=== PATIENT | female | born 1960 | race Caucasian/White ===

== ENCOUNTER → 2018-05-02 07:32 | Outpatient (CLI) | payer OTHER, SELFPAY ==
--- NOTE | 2018-05-02 07:47 | RAD_ITS ---
STUDY: AIR-CONTRAST UPPER GI SERIES. REASON FOR EXAM: Female, 57 years old. History of gastroesophageal reflux disease. FLUOROSCOPY TIME (if supplied): (0:51) minutes/seconds TECHNIQUE: The patient ingested barium. Multiple images of the esophagus, stomach and duodenum were obtained. COMPARISON: None. FINDINGS: There is evidence of a small sliding hiatal hernia with gastroesophageal reflux. The remainder of the stomach and duodenum is unremarkable. There is no evidence of ulceration or mass lesion. RAD/Upper GI Series Only IMPRESSION: Small sliding hiatal hernia with gastroesophageal reflux. Electronically Signed: Jad Peñaloza MD at 8:25 EDT Tel [phone], Service support ,
[2018-05-02 08:35] LABS: Cholesterol 154 mg/dL (200); Glucose 88 mg/dL (74-106); High Density Lipoprotein 53 mg/dL; Triglycerides 131 mg/dL; Very Low Density Lipoprotein 26 mg/dL (5-40)
== END ==
PROVIDERS: Family Provider Family Medicine; PCP Family Medicine; Visit Provider Family Medicine
DX: Z01.89 Encounter for other specified special examinations (principal); K21.9 Gastro-esophageal reflux disease without esophagitis
CPT/HCPCS: 36415; 74246; 80061; 82947

== ENCOUNTER → 2019-01-18 07:48 | Outpatient (CLI) | payer OTHER, SELFPAY ==
--- NOTE | 2019-01-18 07:52 | BI_ITS ---
MAMMOGRAPHY - BILATERAL SCREENING REASON FOR EXAM: Female, 58 years old. Routine annual screening examination. PERTINENT HISTORY: Non-contributory. Remote right stereotactic breast biopsy. TECHNIQUE: Digital bilateral breast lb (3D mammographic acquisition) in the CC and MLO projections. 2-D mediolateral oblique (MLO) and craniocaudad (CC) views of both breasts were obtained. CAD: Full Field Digital Mammography with Computer Added Detection was performed. COMPARISON: Comparison is made with prior study dated November 08, 2016 and January 27, 2009. FINDINGS: Breast Composition: The breasts are extremely dense, which lowers the sensitivity of mammography. There are no dominant masses or suspicious calcifications. A tissue clip marker is once again seen in the upper medial aspect of the right breast. No other significant abnormalities are identified. There has been no significant change since the prior study. BI/SCREENING MAMM (CAD), BILAT IMPRESSION: Stable bilateral screening mammogram. Yearly follow-up mammogram recommended. (A) ASSESSMENT CATEGORY: BIRADS Category 2: Benign. A letter regarding these results will be sent to the patient by the facility within 30 days. Approximately 10% of breast cancers are not detected by mammography. A normal mammogram should not delay biopsy of a clinically suspicious abnormality. [id number] Electronically Signed: Jad Peñaloza, at 9:05 EST , Service support ,
== END ==
PROVIDERS: Family Provider Family Medicine; PCP Family Medicine; Referring Provider Obstetrics & Gynecology; Visit Provider Obstetrics & Gynecology
DX: Z12.31 Encounter for screening mammogram for malignant neoplasm of breast (principal)
CPT/HCPCS: 77063; 77067

== ENCOUNTER → 2019-05-20 | Outpatient (CLI) | payer OTHER, SELFPAY ==
[2019-05-20 15:37] LABS: Absolute Lymphocyte Count 2.04 X10^3/ul (0.83-4.51); Absolute Neutrophil Count 2.2 X10^3/uL (2.0-7.7); Basophil# 0.02 X10^3/uL; Basophil% 0.4 % (0-1); Eosinophil# 0.07 X10^3/uL; Eosinophils% 1.5 % (0-5); Hematocrit 38.6 % (37-47); Hemoglobin 12.9 g/dl (12.0-15.0); Lymphocyte # 2.04 X10^3/ul (4.0); Lymphocyte % 43.1 % (19-41); Mean Corp Hgb Conc 33.4 g/gl (32-36); Mean Corpuscular Hgb 28.9 pg (27.0-32.0); Mean Corpuscular Volume 86.5 fL (81-99); Mean Platelet Vol. 12.2 fl (6.2-12.0); Monocyte# 0.38 X10^3/uL; Neutrophil # 2.21 X10^3/uL (2.7-7.7); Neutrophil % 46.8 % (47-70); Platelet Count 148 K/mm3 (150-450); RBC Distribution Width CV 12.7 % (11.6-14.6); RBC Distribution Width SD 39.5 fl (35.1-43.9); Red Blood Count 4.46 M/mm3 (4.2-5.4); White Blood Count 4.7 K/mm3 (4.4-11.0)
[2019-05-20 15:43] LABS: POSITIVE COUNT NO; POSITIVE DIFFERENTIAL NO; POSITIVE MORPHOLOGY NO
[2019-05-20 16:05] LABS: Vitamin B12 1198 pg/mL (211-911)
[2019-05-20 16:55] LABS: ALB/GLOB Ratio 1.2 RATIO (0.9-2.4); AST(SGOT) 20 U/L (15-37); Alanine Aminotransfer ALT/SGPT 24 U/L (13-56); Albumin, Serum 3.9 g/dL (3.2-5.0); Alkaline Phosphatase 50 U/L (45-117); Anion Gap 3 (5-15); BUN 17 mg/dL (7-18); BUN/Creat Ratio 23.7 RATIO (10-20); Calcium,Total 9.2 mg/dL (8.5-10.1); Chloride 105 mmol/L (98-107); Creatinine, Serum 0.72 mg/dL (0.55-1.02); EST Glomerular Filtration Rate 88 mL/min (>60); Est Glom Filt Rate - Afr Amer 106 mL/min (>60); Globulin 3.3 g/dL (2.2-4.2); Glucose 88 mg/dL (74-106); Potassium 3.9 mmol/L (3.5-5.1); Protein, Total 7.2 g/dL (6.4-8.2); Sodium Level 139 mmol/L (136-145)
== END | disposition home or self-care (01) ==
LOC: MFPLAB 14:23
PROVIDERS: Family Provider Family Medicine; PCP Family Medicine; Visit Provider Family Medicine
DX: L65.9 Nonscarring hair loss, unspecified (principal); R53.83 Other fatigue
CPT/HCPCS: 36415; 80053; 82607; 82746; 84443; 85025

== ENCOUNTER → 2019-07-13 | Outpatient (CLI) | payer OTHER, SELFPAY ==
[2019-07-13 10:07] LABS: Absolute Lymphocyte Count 1.72 X10^3/uL (0.83-4.51); Absolute Neutrophil Count 2.1 X10^3/uL (2.0-7.7); Basophil# 0.02 X10^3/uL; Basophil% 0.5 % (0-1); Eosinophil# 0.08 X10^3/uL; Eosinophils% 1.9 % (0-5); Hemoglobin 13.6 g/dL (12.0-15.0); Lymphocyte # 1.72 X10^3/ul (4.0); Lymphocyte % 40.8 % (19-41); Mean Corp Hgb Conc 33.2 g/dL (32-36); Mean Corpuscular Hgb 29.8 pg (27.0-32.0); Mean Corpuscular Volume 89.9 fL (81-99); Mean Platelet Vol. 11.9 fl (6.2-12.0); Monocyte# 0.35 X10^3/uL; Monocyte% 8.3 % (0-10); NRBC Flagged by Analyzer 0 % (0-5); Neutrophil # 2.05 X10^3/uL (2.7-7.7); Neutrophil % 48.5 % (47-70); Platelet Count 157 K/mm3 (150-450); RBC Distribution Width SD 39.6 fl (35.1-43.9); Red Blood Count 4.56 M/mm3 (4.2-5.4); White Blood Count 4.2 K/mm3 (4.4-11.0)
[2019-07-13 10:38] LABS: Cholesterol 174 mg/dL (200); High Density Lipoprotein 69 mg/dL; Triglycerides 111 mg/dL; Very Low Density Lipoprotein 22 mg/dL (5-40)
== END | disposition home or self-care (01) ==
LOC: LAB 09:21
PROVIDERS: Family Provider Family Medicine; PCP Family Medicine; Referring Provider Family Medicine; Visit Provider Family Medicine
DX: I10 Essential (primary) hypertension (principal)
CPT/HCPCS: 36415; 80061; 85025

== ENCOUNTER → 2020-06-10 15:38 | Outpatient (CLI) | payer OTHER, SELFPAY ==
[2020-06-10 17:53] LABS: Absolute Lymphocyte Count 1.65 X10^3/uL (0.83-4.51); Absolute Neutrophil Count 3.2 X10^3/uL (2.0-7.7); Basophil# 0.02 X10^3/uL; Basophil% 0.4 % (0-1); Eosinophil# 0.07 X10^3/uL; Eosinophils% 1.3 % (0-5); Hematocrit 37.8 % (37-47); Hemoglobin 12.2 g/dL (12.0-15.0); Lymphocyte # 1.65 X10^3/ul (4.0); Lymphocyte % 30.3 % (19-41); Mean Corp Hgb Conc 32.3 g/dL (32-36); Mean Corpuscular Hgb 29.5 pg (27.0-32.0); Mean Corpuscular Volume 91.3 fL (81-99); Mean Platelet Vol. 12.3 fl (6.2-12.0); Monocyte# 0.53 X10^3/uL; Monocyte% 9.7 % (0-10); NRBC Flagged by Analyzer 0 % (0-5); Neutrophil # 3.16 X10^3/uL (2.7-7.7); Neutrophil % 58.1 % (47-70); Platelet Count 163 K/mm3 (150-450); RBC Distribution Width CV 12.7 % (11.6-14.6); RBC Distribution Width SD 41.7 fl (35.1-43.9); Red Blood Count 4.14 M/mm3 (4.2-5.4); White Blood Count 5.4 K/mm3 (4.4-11.0)
[2020-06-10 18:02] LABS: T3 Total - Triiodothyronine 1.05 ng/mL (0.6-1.81)
[2020-06-10 18:17] LABS: ALB/GLOB Ratio 1.1 RATIO (0.9-2.4); AST(SGOT) 13 U/L (15-37); Alanine Aminotransfer ALT/SGPT 20 U/L (13-56); Albumin, Serum 3.9 g/dL (3.2-5.0); Alkaline Phosphatase 57 U/L (45-117); Anion Gap 3 (5-15); BUN 19 mg/dL (7-18); BUN/Creat Ratio 23.9 RATIO (10-20); Calcium,Total 8.9 mg/dL (8.5-10.1); Chloride 105 mmol/L (98-107); EST Glomerular Filtration Rate 78 mL/min (>60); Est Glom Filt Rate - Afr Amer 94 mL/min (>60); Ferritin 125 ng/mL (8-252); Globulin 3.5 g/dL (2.2-4.2); Glucose 86 mg/dL (74-106); Protein, Total 7.4 g/dL (6.4-8.2); Sodium Level 139 mmol/L (136-145); T4 Free Direct 1.04 ng/dL (0.76-1.46); Thyroid Stim Hormone (TSH) 2.19 uIU/mL (0.358-3.74)
[2020-06-12 10:52] LABS: Thyroid Peroxidase AB 14 IU/mL (0-34)
[2020-06-14 06:01] LABS: ANA- Centromere Pattern >1:1280; Anti-Nuclear Antibody Test POSITIVE
== END ==
PROVIDERS: PCP Family Medicine; Referring Provider Dermatology Pediatric Dermatology; Visit Provider Dermatology Pediatric Dermatology
DX: E03.9 Hypothyroidism, unspecified (principal); B00.1 Herpesviral vesicular dermatitis; B02.9 Zoster without complications; L67.9 Hair color and hair shaft abnormality, unspecified; L98.8 Other specified disorders of the skin and subcutaneous tissue
CPT/HCPCS: 36415; 80053; 82728; 84439; 84443; 84480; 85025; 86038; 86376

== ENCOUNTER → 2020-06-18 09:33 | Outpatient (CLI) | payer OTHER, SELFPAY ==
[2020-06-18 10:49] LABS: PTHIN 22.1 pg/mL (18.4-80.1)
[2020-06-18 10:58] LABS: Erythrocyte Sedimentation Rate 4 mm/hr (0-30)
[2020-06-18 11:06] LABS: CRP < 2.90 mg/L (0.0-3.0); Rheumatoid Factor < 10.0 IU/mL (<15)
[2020-06-19 14:09] LABS: Anti-Centromere B Ab >8.0 AI (0.0-0.9); Anti-Chromatin <0.2 AI (0.0-0.9); Anti-Jo <0.2 AI (0.0-0.9); Anti-Scleroderma-70 AB <0.2 AI (0.0-0.9); RNP Ab <0.2 AI (0.0-0.9); SJOGREN'S Anti-SS-A test < 0.2 AI (0.0-0.9); SJOGREN'S Anti-SS-B test < 0.2 AI (0.0-0.9); Smith Ab <0.2 AI (0.0-0.9)
[2020-06-19 16:06] LABS: Anti-dsDNA Ab <1 IU/mL (0-9)
[2020-06-23 14:08] LABS: Complement C3 99 mg/dL (82-167); Cytoplasmic Ab (C-ANCA) <1:20 titer (Neg:<1:20)
[2020-06-23 14:52] LABS: Complement CH50 > 60 U/mL (>41); HLA B27 Negative (.); Perinuclear Ab (P-ANCA) <1:20 titer (Neg:<1:20)
== END ==
PROVIDERS: PCP Family Medicine; Referring Provider Family Medicine; Visit Provider Family Medicine
DX: R76.8 Other specified abnormal immunological findings in serum (principal)
CPT/HCPCS: 36415; 81374; 83970; 85652; 86140; 86160; 86162; 86225; 86235; 86256; 86431

== ENCOUNTER → 2020-07-28 09:53 | Outpatient (CLI) | payer OTHER, SELFPAY ==
--- NOTE | 2020-07-28 09:56 | RAD_ITS ---
HISTORY: inflammatory polyarthropathy ADDITIONAL HISTORY: None provided. EXAMINATION/TECHNIQUE: XR Pelvis 1 or 2 Views Number of images including paperwork: 1 COMPARISON: None FINDINGS: BONES: No acute fracture. JOINTS: No subluxation. Mild degenerative changes at the hips, sacroiliac joints and symphysis pubis. No definite erosive changes. SOFT TISSUES: No distinct foreign body. RAD/Pelvis 1 or 2 Views IMPRESSION: Degenerative changes without acute osseous abnormality. at 0618 Reported and signed by: Marge Fernandez MD Electronically Signed: Marge Fernandez MD at 6:18 EDT Tel , Service support ,
[2020-07-28 11:02] LABS: EXAGEN MAILED SPECIMEN
[2020-07-28 12:55] LABS: Absolute Lymphocyte Count 1.53 X10^3/uL (0.83-4.51); Absolute Neutrophil Count 3.4 X10^3/uL (2.0-7.7); Basophil# 0.02 X10^3/uL; Basophil% 0.4 % (0-1); Eosinophil# 0.07 X10^3/uL; Eosinophils% 1.3 % (0-5); Hematocrit 38.9 % (37-47); Hemoglobin 12.7 g/dL (12.0-15.0); Lymphocyte # 1.53 X10^3/ul (4.0); Lymphocyte % 28.2 % (19-41); Mean Corp Hgb Conc 32.6 g/dL (32-36); Mean Corpuscular Hgb 29.8 pg (27.0-32.0); Mean Corpuscular Volume 91.3 fL (81-99); Mean Platelet Vol. 12.2 fl (6.2-12.0); Monocyte# 0.39 X10^3/uL; Monocyte% 7.2 % (0-10); NRBC Flagged by Analyzer 0 % (0-5); Neutrophil % 62.7 % (47-70); Platelet Count 180 K/mm3 (150-450); RBC Distribution Width CV 13.3 % (11.6-14.6); RBC Distribution Width SD 45.1 fl (35.1-43.9); Red Blood Count 4.26 M/mm3 (4.2-5.4); White Blood Count 5.4 K/mm3 (4.4-11.0)
[2020-07-28 12:56] LABS: Color, Urine Straw (Yellow); Glucose, Dipstick Normal (Normal); Ketone-Dipstick Negative (Negative); Leukocyte Esterase-Dipstick Negative /ul (Negative); Nitrite-Dipstick Negative (Negative); Occult Blood-Urine Negative /ul (Negative); Protein-Dipstick Negative (Negative); Urine Bilirubin Dipstick Negative (Negative); Urine Clarity Clear (Clear); Urine Urobilinogen Normal (Normal)
[2020-07-28 13:06] LABS: Protein, Urine (Random) < 6.0 mg/dL (<11.9)
[2020-07-28 13:18] LABS: ALB/GLOB Ratio 1.1 RATIO (0.9-2.4); AST(SGOT) 14 U/L (15-37); Alanine Aminotransfer ALT/SGPT 19 U/L (13-56); Alkaline Phosphatase 54 U/L (45-117); Anion Gap 3 (5-15); BUN 19 mg/dL (7-18); BUN/Creat Ratio 21.7 RATIO (10-20); Calcium,Total 9.4 mg/dL (8.5-10.1); Chloride 107 mmol/L (98-107); Creatinine, Serum 0.87 mg/dL (0.55-1.02); EST Glomerular Filtration Rate 70 mL/min (>60); Est Glom Filt Rate - Afr Amer 84 mL/min (>60); Globulin 3.5 g/dL (2.2-4.2); Glucose 83 mg/dL (74-106); Potassium 3.9 mmol/L (3.5-5.1); Protein, Total 7.5 g/dL (6.4-8.2); Sodium Level 141 mmol/L (136-145)
== END ==
PROVIDERS: PCP Family Medicine; Referring Provider Internal Medicine Rheumatology; Visit Provider Internal Medicine Rheumatology
DX: M06.4 Inflammatory polyarthropathy (principal); R76.8 Other specified abnormal immunological findings in serum; I10 Essential (primary) hypertension; G47.39 Other sleep apnea; L98.8 Other specified disorders of the skin and subcutaneous tissue
CPT/HCPCS: 36415; 72170; 80053; 81002; 82570; 84156; 85025

== ENCOUNTER → 2020-10-20 17:20 | Outpatient (CLI) | payer OTHER, SELFPAY ==
--- NOTE | 2020-10-20 16:53 | BI_ITS ---
MAMMOGRAPHY - BILATERAL SCREENING REASON FOR EXAM: Female, 60 years old. Routine annual screening examination. PERTINENT HISTORY: Non-contributory. Remote right stereotactic breast biopsy. TECHNIQUE: Digital bilateral breast [place] (3D mammographic acquisition) in the CC and MLO projections. 2-D mediolateral oblique (MLO) and craniocaudad (CC) views of both breasts were obtained. CAD: Full Field Digital Mammography with Computer Added Detection was performed. COMPARISON: Comparison is made with prior study of January 2019 and 11/08/2016. FINDINGS: Breast Composition: The breasts are extremely dense, which lowers the sensitivity of mammography. There are no dominant masses or suspicious calcifications. A tissue clip marker is once again seen in the upper medial aspect of the right breast. No other significant abnormalities are identified. There has been no significant change since the prior study. BI/SCREEN MAMM (CAD) W/[place] BILAT IMPRESSION: Stable bilateral screening mammogram. Yearly follow-up mammogram recommended. (A) ASSESSMENT CATEGORY: BIRADS Category 2: Benign. A letter regarding these results will be sent to the patient by the facility within 30 days. Approximately 10% of breast cancers are not detected by mammography. A normal mammogram should not delay biopsy of a clinically suspicious abnormality. [id number] Electronically Signed: Jad Peñaloza, at 9:13 EST , Service support ,
== END ==
PROVIDERS: PCP Family Medicine; Referring Provider Family Medicine; Visit Provider Family Medicine
DX: Z12.31 Encounter for screening mammogram for malignant neoplasm of breast (principal)
CPT/HCPCS: 77063; 77067

== ENCOUNTER → 2020-12-17 13:45 | Outpatient (CLI) | payer OTHER, SELFPAY ==
[2020-12-19 08:56] LABS: HPV APTIMA, High Risk Negative (Negative)
[2020-12-19 08:58] LABS: HPV Reflexed? YES, CHARGE PATIENT
== END ==
PROVIDERS: PCP Family Medicine; Visit Provider Student in an Organized Health Care Education/Training Program
DX: Z12.4 Encounter for screening for malignant neoplasm of cervix (principal)
CPT/HCPCS: 87624; 88175; G0145

== ENCOUNTER → 2021-02-20 09:46 | Outpatient (CLI) | payer OTHER, SELFPAY ==
[2021-02-20 11:24] LABS: Erythrocyte Sedimentation Rate 7 mm/hr (0-30)
[2021-02-20 11:25] LABS: Absolute Lymphocyte Count 1.02 X10^3/uL (0.83-4.51); Absolute Neutrophil Count 1.9 X10^3/uL (2.0-7.7); Basophil# 0.02 X10^3/uL; Basophil% 0.5 % (0-1); Eosinophil# 0.19 X10^3/uL; Eosinophils% 5.1 % (0-5); Hemoglobin 12.4 g/dL (12.0-15.0); Lymphocyte # 1.02 X10^3/ul (4.0); Lymphocyte % 27.6 % (19-41); Mean Corp Hgb Conc 32.6 g/dL (32-36); Mean Corpuscular Hgb 28.8 pg (27.0-32.0); Mean Corpuscular Volume 88.4 fL (81-99); Mean Platelet Vol. 12.4 fl (6.2-12.0); Monocyte# 0.58 X10^3/uL; Monocyte% 15.7 % (0-10); NRBC Flagged by Analyzer 0 % (0-5); Neutrophil # 1.89 X10^3/uL (2.7-7.7); Neutrophil % 51.1 % (47-70); Platelet Count 138 K/mm3 (150-450); RBC Distribution Width CV 12.2 % (11.6-14.6); RBC Distribution Width SD 39.4 fl (35.1-43.9); White Blood Count 3.7 K/mm3 (4.4-11.0)
[2021-02-20 11:51] LABS: ALB/GLOB Ratio 1.1 RATIO (0.9-2.4); AST(SGOT) 26 U/L (15-37); Alanine Aminotransfer ALT/SGPT 34 U/L (13-56); Albumin, Serum 3.8 g/dL (3.2-5.0); Alkaline Phosphatase 60 U/L (45-117); Anion Gap 4 (5-15); BUN 20 mg/dL (7-18); BUN/Creat Ratio 24.5 RATIO (10-20); Calcium,Total 9.3 mg/dL (8.5-10.1); Chloride 103 mmol/L (98-107); Creatinine, Serum 0.82 mg/dL (0.55-1.02); EST Glomerular Filtration Rate 75 mL/min (>60); Est Glom Filt Rate - Afr Amer 91 mL/min (>60); Globulin 3.5 g/dL (2.2-4.2); Glucose 86 mg/dL (74-106); Potassium 3.8 mmol/L (3.5-5.1); Protein, Total 7.3 g/dL (6.4-8.2); Sodium Level 139 mmol/L (136-145)
== END ==
PROVIDERS: PCP Family Medicine; Visit Provider Internal Medicine Rheumatology
DX: M06.4 Inflammatory polyarthropathy (principal); R76.8 Other specified abnormal immunological findings in serum; I10 Essential (primary) hypertension; G47.39 Other sleep apnea; L98.8 Other specified disorders of the skin and subcutaneous tissue; F41.9 Anxiety disorder, unspecified; Z86.19 Personal history of other infectious and parasitic diseases; G43.909 Migraine, unspecified, not intractable, without status migrainosus
CPT/HCPCS: 36415; 80053; 85025; 85652

== ENCOUNTER → 2021-11-10 | Outpatient (CLI) | payer OTHER, SELFPAY | END | disposition home or self-care (01) | LOC: LABSPEC 14:41 | PROVIDERS: PCP Family Medicine; Visit Provider Nurse Practitioner Family | DX: Z20.822 Contact with and (suspected) exposure to COVID-19 (principal) | CPT/HCPCS: 87635; U0005; U0003 ==

== ENCOUNTER → 2022-04-16 | Outpatient (CLI) | payer OTHER, SELFPAY ==
[2022-04-16 10:42] LABS: Absolute Lymphocyte Count 1.51 X10^3/uL (0.83-4.51); Absolute Neutrophil Count 3.4 X10^3/uL (2.0-7.7); Basophil# 0.02 X10^3/uL; Basophil% 0.4 % (0-1); Eosinophils% 1.8 % (0-5); Erythrocyte Sedimentation Rate 4 mm/hr (0-30); Hematocrit 37.3 % (37-47); Hemoglobin 12.7 g/dL (12.0-15.0); Lymphocyte # 1.51 X10^3/ul (0.83-4.51); Lymphocyte % 27.8 % (19-41); Mean Corpuscular Hgb 29.7 pg (27.0-32.0); Mean Corpuscular Volume 87.4 fL (81-99); Mean Platelet Vol. 11.8 fl (6.2-12.0); Monocyte# 0.44 X10^3/uL; Monocyte% 8.1 % (0-10); NRBC Flagged by Analyzer 0 % (0-5); Neutrophil # 3.35 X10^3/uL (2.7-7.7); Neutrophil % 61.7 % (47-70); Platelet Count 159 K/mm3 (150-450); RBC Distribution Width CV 12.2 % (11.6-14.6); RBC Distribution Width SD 39.1 fl (35.1-43.9); Red Blood Count 4.27 M/mm3 (4.2-5.4); White Blood Count 5.4 K/mm3 (4.4-11.0)
[2022-04-16 11:00] LABS: ALB/GLOB Ratio 1.2 RATIO (0.9-2.4); AST(SGOT) 20 U/L (15-37); Alanine Aminotransfer ALT/SGPT 29 U/L (13-56); Albumin, Serum 3.7 g/dL (3.2-5.0); Alkaline Phosphatase 42 U/L (45-117); Anion Gap 4 (5-15); BUN 21 mg/dL (7-18); BUN/Creat Ratio 24.2 RATIO (10-20); CRP < 2.90 mg/L (0.0-3.0); Calcium,Total 9.3 mg/dL (8.5-10.1); Chloride 104 mmol/L (98-107); Creatinine, Serum 0.87 mg/dL (0.55-1.02); EST Glomerular Filtration Rate 70 mL/min (>60); Est Glom Filt Rate - Afr Amer 85 mL/min (>60); Globulin 3.2 g/dL (2.2-4.2); Glucose 93 mg/dL (74-106); Potassium 4.1 mmol/L (3.5-5.1); Protein, Total 6.9 g/dL (6.4-8.2); Sodium Level 139 mmol/L (136-145)
== END | disposition home or self-care (01) ==
LOC: LAB 09:41
PROVIDERS: PCP Family Medicine; Referring Provider Internal Medicine Rheumatology; Visit Provider Internal Medicine Rheumatology
DX: M06.4 Inflammatory polyarthropathy (principal); R76.8 Other specified abnormal immunological findings in serum; I10 Essential (primary) hypertension; G47.39 Other sleep apnea; L98.8 Other specified disorders of the skin and subcutaneous tissue; F41.9 Anxiety disorder, unspecified
CPT/HCPCS: 36415; 80053; 85025; 85652; 86140

== ENCOUNTER → 2022-12-03 | Outpatient (CLI) | payer OTHER, SELFPAY ==
[2022-12-03 10:45] LABS: Erythrocyte Sedimentation Rate 8 mm/hr (0-30)
[2022-12-03 10:49] LABS: Absolute Neutrophil Count 2.1 X10^3/uL (2.0-7.7); Basophil# 0.01 X10^3/uL; Basophil% 0.2 % (0-1); Eosinophil# 0.13 X10^3/uL; Eosinophils% 3.2 % (0-5); Hematocrit 40.7 % (37-47); Hemoglobin 13.4 g/dL (12.0-15.0); Lymphocyte % 34.9 % (19-41); Mean Corp Hgb Conc 32.9 g/dL (32-36); Mean Corpuscular Hgb 29.3 pg (27.0-32.0); Mean Corpuscular Volume 89.1 fL (81-99); Mean Platelet Vol. 12.1 fl (6.2-12.0); Monocyte# 0.35 X10^3/uL; Monocyte% 8.7 % (0-10); NRBC Flagged by Analyzer 0 % (0-5); Neutrophil # 2.11 X10^3/uL (2.7-7.7); Neutrophil % 52.8 % (47-70); Platelet Count 158 K/mm3 (150-450); RBC Distribution Width CV 12.5 % (11.6-14.6); RBC Distribution Width SD 40.5 fl (35.1-43.9); Red Blood Count 4.57 M/mm3 (4.2-5.4)
[2022-12-03 10:51] LABS: Cholesterol 170 mg/dL (200); High Density Lipoprotein 76 mg/dL; T4 Free Direct 1.12 ng/dL (0.76-1.46); Thyroid Stim Hormone (TSH) 2.12 uIU/mL (0.358-3.74); Triglycerides 81 mg/dL; Very Low Density Lipoprotein 16 mg/dL (5-40)
[2022-12-03 10:57] LABS: Microalbumin,Random Urine < 5.0 mg/L (NO RANGE EST.)
[2022-12-03 10:57] LABS: ALB/GLOB Ratio 1.1 RATIO (0.9-2.4); AST(SGOT) 24 U/L (15-37); Alanine Aminotransfer ALT/SGPT 32 U/L (13-56); Alkaline Phosphatase 57 U/L (45-117); Anion Gap 4 (5-15); BUN 15 mg/dL (7-18); BUN/Creat Ratio 16.7 RATIO (10-20); CRP < 2.90 mg/L (0.0-3.0); Calcium,Total 9.4 mg/dL (8.5-10.1); Chloride 104 mmol/L (98-107); EST Glomerular Filtration Rate 67 mL/min (>60); Est Glom Filt Rate - Afr Amer 81 mL/min (>60); Globulin 3.6 g/dL (2.2-4.2); Glucose 94 mg/dL (74-106); Potassium 4.2 mmol/L (3.5-5.1); Protein, Total 7.6 g/dL (6.4-8.2); Sodium Level 138 mmol/L (136-145)
== END | disposition home or self-care (01) ==
LOC: LAB 09:42
PROVIDERS: Internal Medicine Rheumatology; PCP Family Medicine; Referring Provider Family Medicine; Visit Provider Family Medicine
DX: M06.4 Inflammatory polyarthropathy (principal); R76.8 Other specified abnormal immunological findings in serum; M72.0 Palmar fascial fibromatosis [Dupuytren]; G47.39 Other sleep apnea; L98.8 Other specified disorders of the skin and subcutaneous tissue; F41.9 Anxiety disorder, unspecified; Z86.19 Personal history of other infectious and parasitic diseases; G43.909 Migraine, unspecified, not intractable, without status migrainosus; I10 Essential (primary) hypertension
CPT/HCPCS: 36415; 80053; 80061; 82043; 82570; 84439; 84443; 85025; 85652; 86140

== ENCOUNTER → 2023-03-23 | Outpatient (CLI) | payer OTHER, SELFPAY ==
--- NOTE | 2023-03-23 12:26 | BI_ITS ---
MAMMOGRAPHY - BILATERAL SCREENING REASON FOR EXAM: Female, 62 years old. Routine annual screening examination. PERTINENT HISTORY: Non-contributory. Minimal right stereotactic breast biopsy. TECHNIQUE: Digital bilateral breast [place] (3D mammographic acquisition) in the CC and MLO projections. 2-D mediolateral oblique (MLO) and craniocaudad (CC) views of both breasts were obtained. CAD: Full Field Digital Mammography with Computer Added Detection was performed. COMPARISON: Comparison is made with prior examination October 20, 2020 and January 18, 2019. FINDINGS: Breast Composition: The breasts are extremely dense, which lowers the sensitivity of mammography. There are no dominant masses or suspicious calcifications. A tissue clip marker is once again seen in the upper medial aspect of the right breast. Stable small benign-appearing bilateral axillary lymph nodes. No other significant abnormalities are identified. There has been no significant change since the prior study. BI/SCRN MAMM (CAD)W/[place] BILAT IMPRESSION: Stable bilateral screening mammogram. Yearly follow-up mammogram recommended. (A) ASSESSMENT CATEGORY: BIRADS Category 2: Benign. A letter regarding these results will be sent to the patient by the facility within 30 days. Approximately 10% of breast cancers are not detected by mammography. A normal mammogram should not delay biopsy of a clinically suspicious abnormality. [id number] Electronically Signed: Jad Peñaloza MD at 14:12 EDT ,
--- NOTE | 2023-03-23 12:55 | BD_ITS ---
STUDY: DUAL ENERGY X-RAY ABSORPTIOMETRY / DXA REASON FOR EXAM: Female, 62 years old. N95.9 TECHNIQUE: Bone Mineral Density (BMD) measurements of lumbar spine and bilateral hips were obtained. COMPARISON: Comparison is made with prior study November 08, 2016. FINDINGS: Lumbar Spine (L1-L4): g/cm2 (0.853) / T-score (-1.8) / Z-score (0.0) Findings are suggestive of osteopenia with a moderate fracture risk. Left Femur Total: g/cm2 (0.834) / T-score (-0.9) / Z-score (0.3) Left Femoral Neck: g/cm2 (0.797) / T-score (-0.5) / Z-score (1.0) Right Femur Total: g/cm2 (0.849) / T-score (-0.8) / Z-score (0.4) Right Femoral Neck: g/cm2 (0.772) / T-score (-0.7) / Z-score (0.8) The T-Scores on the most recent prior examination were: Lumbar Spine (L1-L4): There has been worsening of bone density since the previous examination. Left Femur Total: which represents a worsening of 11.5%. Right Femur Total: which represents a worsening of 8.3%. BD/Dexa Bone Density Study IMPRESSION: The patient is considered osteopenic as outlined below according to World [employer] Organization (WHO) criteria with a moderate fracture risk. There has been worsening of bone density since the previous examination. Reference Information: The T-score is the number of standard deviations above or below the standard which is normal for young adults at their peak bone mineral density. The World Health Organization (WHO) interprets the T-scores as follows: Above -1 Normal bone density Between -1 and -2.5 Osteopenia Equal to / or below -2.5 Osteoporosis As a practical clinical guideline, osteopenia may be graded as follows: Mild -1 through -1.5 Moderate -1.6 through -2.0 Severe -2.1 through -2.4 The Z-score is the number of standard deviations above or below age-matched controls. A Z-score of less than -1.5 would be considered abnormal. References: 1. NIH Osteoporosis and Related Bone Diseases www osteo.org 2. International Society for Clinical Densitometry www iscd.org 3. National Osteoporosis Foundation www nof.org Electronically Signed: Jad Peñaloza MD at 10:53 EDT ,
== END | disposition home or self-care (01) ==
LOC: OPBD 12:22
PROVIDERS: PCP Family Medicine; Referring Provider Student in an Organized Health Care Education/Training Program; Visit Provider Student in an Organized Health Care Education/Training Program
DX: Z12.31 Encounter for screening mammogram for malignant neoplasm of breast (principal); N95.9 Unspecified menopausal and perimenopausal disorder
CPT/HCPCS: 77063; 77067; 77080

== ENCOUNTER → 2024-04-23 | Outpatient (CLI) | payer OTHER, SELFPAY ==
[2024-04-23 10:41] LABS: CRP < 2.90 mg/L (0.0-3.0)
[2024-04-23 12:07] LABS: Vitamin B12 1851 pg/mL (211-911); Vitamin D,25 Hydroxy 78.9 ng/mL
[2024-04-27 18:09] LABS: Immunoglobulin E 895 IU/mL (6-495)
== END | disposition home or self-care (01) ==
PROVIDERS: PCP Family Medicine; Referring Provider Family Medicine; Visit Provider Family Medicine
DX: E55.9 Vitamin D deficiency, unspecified (principal); R43.0 Anosmia
CPT/HCPCS: 36415; 82306; 82607; 82785; 86140

== ENCOUNTER → 2024-05-30 | Outpatient (CLI) | payer OTHER, SELFPAY ==
--- NOTE | 2024-05-30 18:13 | CT_ITS ---
EXAM: CT MAXILLOFACIAL WITHOUT INTRAVENOUS CONTRAST CLINICAL INDICATION: loss of smell/taste TECHNIQUE: Helically acquired images were obtained of the face without intravenous contrast. This CT exam was performed using one or more of the following dose reduction techniques: automated exposure control, adjustment of the mA and/or kV according to patient size, and/or use of iterative reconstruction technique. COMPARISON: No relevant prior studies available. FINDINGS: BONES/JOINTS: Mild rightward nasal septal deviation without significant spurring. Mild/moderate bilateral TMJ arthrosis. Degenerative changes partially visualized in the cervical spine. No displaced fracture. No discrete lytic or blastic abnormalities. SOFT TISSUES: No significant abnormality. No focal subcutaneous swelling. No discrete fluid collections. ORBITS: No acute findings. SINUSES: Hypoplastic frontal sinuses. The frontal recesses are otherwise clear. Trace mucosal thickening in the alveolar recess of the right maxillary sinus. The maxillary sinuses are clear. Ostiomeatal units are clear. Ethmoid and sphenoid sinuses are clear. Lateral recesses are patent. Partial dehiscence of the anterior ethmoid artery canals. Moderate ductal fibroid fossa. Symmetric ethmoid skull base. MASTOID AIR CELLS: Normal as visualized. Clear. DENTAL: No significant findings. No periodontal osseous erosion. NASAL CAVITY/SEPTUM: The olfactory cleft and remainder of the nasal cavity is patent. OROPHARYNX: Tonsillar calcifications are likely the result of chronic and/or recurrent tonsillar infection/inflammation. CT/Sinus/Facial Bone IMPRESSION: 1. Mild rightward nasal septal deviation without significant tearing. Olfactory flat the remainder of the nasal cavity is clear. 2. Hypoplastic frontal sinuses and other variant anatomic features as detailed above. Trace mucosal thickening in the paranasal sinuses without sinus outflow pathway obstruction. Electronically Signed: Jaxson Diehl, at 0:01 EDT ,
== END | disposition home or self-care (01) ==
LOC: CT 18:13
PROVIDERS: PCP Family Medicine; Referring Provider Family Medicine; Visit Provider Family Medicine
DX: R43.0 Anosmia (principal)
CPT/HCPCS: 70486

== ENCOUNTER → 2024-12-21 | Outpatient (CLI) | payer OTHER, SELFPAY ==
[2024-12-21 10:59] LABS: Syphilis Antibodies Non-reactive
[2024-12-23 16:07] LABS: Angiotensin Convert Enzyme 50 U/L (14-82)
[2024-12-23 17:07] LABS: Anti-Nuclear Antibody Test Positive (.)
== END | disposition home or self-care (01) ==
LOC: LAB 09:22
PROVIDERS: PCP Family Medicine; Referring Provider Family Medicine; Visit Provider Family Medicine
DX: R43.0 Anosmia (principal); R76.8 Other specified abnormal immunological findings in serum
CPT/HCPCS: 36415; 82164; 86038; 86780

== ENCOUNTER → 2025-06-10 | Outpatient (CLI) | payer OTHER, SELFPAY ==
[2025-06-10 15:55] LABS: Hematocrit 38.4 % (37-47); Hemoglobin 12.9 g/dL (12.0-15.0); Immature Granulocytes Count 0.010 X10^3/uL (0.0-0.0); Mean Corp Hgb Conc 33.6 g/dL (32-36); Mean Corpuscular Volume 87.5 fL (81-99); Mean Platelet Vol. 11.5 fl (6.2-12.0); NRBC Flagged by Analyzer 0 % (0-5); Platelet Count 194 K/mm3 (150-450); RBC Distribution Width CV 12.3 % (11.6-14.6); RBC Distribution Width SD 39.7 fl (35.1-43.9); Red Blood Count 4.39 M/mm3 (4.2-5.4); White Blood Count 4.8 K/mm3 (4.4-11.0)
[2025-06-10 16:03] LABS: Creatinine, Urine (random) 27.80 mg/dL (28.00-217.00); Microalbumin,Random Urine < 12.0 mg/L (<20 mg/L)
[2025-06-10 16:21] LABS: FOLATES,SERUM (FOLIC ACID) 17.00 ng/mL (4.60-34.80)
[2025-06-10 16:22] LABS: AST(SGOT) 23 U/L (<=31); Alanine Aminotransfer ALT/SGPT 16 U/L (<=34); Albumin, Serum 4.3 g/dL (3.4-4.8); Alkaline Phosphatase 53 U/L (35-104); Anion Gap 14 (5-15); BUN 15 mg/dL (4-19); BUN/Creat Ratio 17.8 RATIO (10-20); Calcium,Total 10.1 mg/dL (7.6-11.0); Carbon Dioxide 24.3 mmol/L (21.0-32.0); Chloride 104 mmol/L (98-108); Globulin 2.7 g/dL (2.2-4.2); Glucose 89 mg/dL (70-99); Potassium 4.1 mmol/L (3.3-5.1); Vitamin B12 1594 pg/mL (180-914); Vitamin D,25 Hydroxy 43.1 ng/mL (30-100)
--- OUTSIDE RECORDS SUMMARY | 2025-06-10 22:15 | XMS RPT_ITS | CCD ---
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 Name Role Phone Crispin Ortega MD Primary Care Provider Crispin Ortega Primary Care Unavailable Crispin Ortega Referring Unavailable Crispin Ortega Attending Unavailable Crispin Ortega Attending Unavailable Ortega, Crispin Primary Care Unavailable Ortega, Crispin Referring Unavailable Crispin Ortega Attending Unavailable Crispin Ortega Primary Care Unavailable Jordan Crispin Referring Unavailable FAST, FRITZ Primary Care Unavailable REFERRED, SELF Referring Unavailable ITA MÁRQUEZ Attending Unavailable Crispin Ortega MD Primary Care Provider [phone] AINSLEY RITTER Attending Unavailable CRISPIN ORTEGA Primary Care Unavailable CRISPIN ORTEGA Primary Care Unavailable AINSLEY RITTER Attending Unavailable CRISPIN ORTEGA Primary Care Unavailable Allergies Allergy Classification Reported Allergen(s) Allergy Type Date of Onset Reaction(s) Facility (5 sources) Environmental allergies [Other] Propensity to adverse reactions 6 [facility] (1 source) OTHER; Translations: [OTHER] Propensity to adverse reactions (disorder) 6 [facility] Repository Medications Current Medications Medication Drug Class(es) Dates Sig (Normalized) Sig (Original) Calcium Cmb #9-I8-Yezmydazcub (CITRACAL D + HEART HEALTH) 315-250-200 mg-unit-mg tab (8 sources) Calcium Cmb #8-U3-Fpwegcsfsfy (CITRACAL D + HEART HEALTH) 315-250-200 mg-unit-mg tab Take by mouth once daily. Active Calcium Cmb #2-D 3-Phytostrols (CITRACAL D + HEART HEALTH) 315-250-200 mg-unit-mg tab Take by mouth once daily. 0 Active Comment on above: Take by mouth once d aily. CPAP/BIPAP/OTHER (2 sources) Start: 02-17-2025 End: 07-04-2052 CPAP/BIPAP/OTHER Indications: FRANKI on CPAP APAP 5-10 cmH2O DME [facility] 1 each 02/17/2025 07/04/2052 Active flaxseed oil-omega 3,6,9 1,300 mg-845 mg -117 mg-117 mg cap (8 sources) flaxseed oil-ome ga 3,6,9 1,300 mg-845 mg -117 mg-117 mg cap Take by mouth. Active flaxseed oil-ome ga 3,6,9 1,300 mg-845 mg -117 mg-117 mg cap Take by mouth. 0 Active Comment on above: Take by mouth. irbesartan 150 mg oral tablet (8 sources) Angiotensin 2 Receptor Marita Start: 05-28-20 18 take 1 tablet by mouth once daily irbesartan (AVAPRO) 150 mg ORAL tablet Take 150 mg by mouth once daily. 0 05/28/2018 Active Comment on above: Take 150 mg by mouth once daily. lactobacillus combination no.4 (PROBIOTIC) 3 billion cell cap (8 sources) lactobacillus combination no.4 (PROBIOTIC) 3 billion cell cap Take 1 capsule by mouth once daily. Active lactobacillus co mbination no.4 (PROBIOTIC) 3 billion cell cap Take 1 capsule by mouth once daily. 0 Active Comment on above: Take 1 capsule by mo [facility] once daily. magnesium citrate (8 sources) Start: 01-13-2021 Magnesium Citrate 150mg (Pure Encapsulations) Take 4 capsules daily. 01/13/2021 Active Start: 01-13-2021 Magnesium Citr ate 150mg (Pure Encapsulations) Take 4 capsules daily. 0 01/13/2021 Active Comment on above: Take 4 capsules iveth y. Usbfcundumohp-Xrsdnaqr-Xfezt n (MULTIVITAMIN 50 PLUS) tab (8 sources) Multivitamins-Mi nerals-Lutei n (MULTIVITAMIN 50 PLUS) tab Take 1 tablet by mouth once daily. Active Multivitamins-Mi nerals-Lutein (MULTIVITAMIN 50 PLUS) tab Take 1 tablet by mouth once daily. 0 Active Comment on above: Take 1 tablet by saqib once daily. Completed/Discontinued Medications Medication Drug Class(es) Dates Sig (Normalized) Sig (Original) busPIRone hydrochloride 5 mg oral tablet (5 sources) Start: 04-15-2021 End: 03-04-2024 take 1 tablet by mouth twice daily busPIRone (BUSPAR) 5 mg tablet Take 1 tablet by mouth twice daily. 90 tablet 3 04/15/2021 03/04/2024 Discontinued Comment on above: Take 1 tablet by saqib th twice daily. CPAP (3 sources) Start: 07-06-2021 End: 12-25-2023 CPAP Change Settings on old Resmed 7 cm H2O, suitable mask per pt preference, chin strap, head gear, humidity, heated tubing (RENITA), lifetime supplies. G47.33 FRANKI 1 Device 0 07/06/2021 12/25/2023 Discontinued Start: 07-06-2021 CPAP Change Se ttings on old Resmed 7 cm H2O, suitable mask per pt preference, chin strap, head gear, humidity, heated tubing (RENITA), lifetime supplies. G47.33 FRANKI 1 Device 0 07/06/2021 Active Comment on above: Change Settings on o ld Resmed 7 cm H2O, suitable mask per pt preference, chin strap, head gear, humidity, heated tubing (RENITA), lifetime supplies. G47.33 FRANKI Meriva-SF (Riya) (5 sources) Start: End: take 2 capsules by mouth twice daily Meriva-SF (Riya) Take 2 capsules by mouth twice daily. 0 01/13/2021 03/04/2024 Discontinued Start: 01-13-2021 take 2 capsules by m outh twice daily Meriva-SF (Riya) Take 2 capsules by mouth twice daily. 0 01/13/2021 Active Comment on above: Take 2 capsules by m outh twice daily. Thyrosol (Metagenics) (5 sources) Start: 07-08-2021 End: 03-04-2024 take 1 tablet by mouth twice daily at mealtime Thyrosol (Metagenics) Take 1 tablet by mouth twice daily with meals. 0 07/08/2021 03/04/2024 Discontinued Start: 07-08-2021 take 1 tablet by saqib th twice daily at mealtime Thyrosol (Metagenics) Take 1 tablet by mouth twice daily with meals. 0 07/08/2021 Active Comment on above: Take 1 tablet by saqib th twice daily with meals. Problems Active Problems Problem Classification Problem Date Documented Date Episodic/Chronic Allergic reactions (8 sources) Contact dermatitis; Translations: [Unspecified contact dermatitis, unspecified cause] 03-21-2006 Episodic Esophageal disorders (8 sources) Gastroesophageal reflux disease; Translations: [Gastro-esophageal reflux disease without esophagitis] Onset: 05-09-2018 05-09-2018 Chronic Headache; including migraine (8 sources) Headache; Translations: [Headache] 03-21-2006 Episodic Nutritional deficiencies (1 source) Vitamin D deficiency, unspecified; Translations: [Vitamin D deficiency, unspecified] Onset: 05-24-2024 Chronic Other nervous system disorders (1 source) Anosmia; Translations: [Anosmia] Onset: 01-06-2025 Episodic Residual codes; unclassified (12 sources) Obstructive sleep apnea syndrome; Translations: [Obstructive sleep apnea (adult) (pediatric)] Onset: 08-29-2019 07-05-2021 Chronic Residual codes; unclassified (2 sources) Obstructive sleep apnea (adult) (pediatric); Translations: [FRANKI on CPAP] Onset: 12-11-2023 Chronic Residual codes; unclassified (1 source) Other specified health status; Translations: [Other specified conditions influencing health status] 12-15-2023 Episodic Past or Other Problems Problem Classification Problem Date Documented Date Episodic/Chronic Abdominal hernia (16 sources) Diaphragmatic hernia; Translations: [Diaphragmatic hernia without obstruction or gangrene] Onset: 12-26-2011 05-08-2018 Episodic Abdominal pain (8 sources) Indigestion; Translations: [Epigastric pain] Onset: 05-09-2018 05-09-2018 Episodic Hemorrhoids (8 sources) Thrombosed external hemorrhoids; Translations: [Perianal venous thrombosis] Onset: 10-19-2018 10-19-2018 Episodic Results Test Name Value Interpretation Reference Range Facility CNOVon 02-17-2025 CNOV Office Visit (SLEWST ) NOVA SALINAS ([id number]) 1960 F Date Time Provider Department 02/17/25 11:30 AM AINSLEY RITTER SLEASHLY During your visit today, we recorded the following information about you: Pulse Respiration Blood pressure Weight 74/minute 18/minute 128/76 68.4 kg Ainsley Ritter APRN.CNP 02/17/2025 12:24 PM Signed [facility] Follow up/ Established patient visit Date of last visit : 03/04/2024 The following Impression/Plan was copied and pasted from the patient's last [facility] visit on 03/04/24: IMPRESSION: Franki (obstructive sleep apnea) (primary encounter diagnosis) Nova Salinas is a 63 year old female with severe FRANKI. Changing the pressure range did resolve the noise and has helped her to awake less often in the night. PMH of GERD, SMITH. --Patient is compliant with PAP therapy and reports subjective benefits from treatment --We reviewed PAP compliance report; AHI is normalized PLAN: - Continue Auto CPAP at 5-9 cmH2O. - Remember to clean your mask and equipment regularly, as directed. - You should be eligible for new supplies approximately every 3-6 months, depending on your insurance coverage. Contact your Durable Medical Equipment (DME) company for new supplies as needed. - Follow up in 12 months Ainsley Ritter APRN.CNP Here for follow up for annual visit for severe FRANKI on APAP, dislikes CPAP but is compliant Only has faint sense of taste and smell since 01/2024. Recent testing by tester equipment showed she has no allergies. Gets mask lines despite everything she has tried, includiing padding ENT told her not to use hybrid FFM, pressure on nose called bleeding If she sleeps supine then she gets mask leak as well as obstruction She needs to tape her mouth to prevent dry mouth even with FFM She tried AirTouch F20 memory foam w/o benefit SLEEP APNEA Sleep apnea type : FRANKI, Most Recent Apnea-Hypopnea Index (AHI): 43 Treatment : PAP therapy DME: Tiffany PAP History: Uses AutoPAP for 8 hours per night, 7 nights per week. Current PAP settin-9 cm H2O. Difficulties with AutoPAP: None except nuisances above Reviewed objective PAP compliance data: Uses every night for avg 8 hrs AHI 5.1 P90 9 cmH2O Mask type: full face mask Mask issues: air leak, mask lines There is a perceived benefit by the patient: otherwise wakes with obstructions, father had untreated FRANKI and dementia --------- SLEEP HYGIENE QUESTIONS: Bedtime : 1030 pm Wake up Time : 7 am Time it takes to fall sleep : not problematic initially Number of times patient wakes up per night : around 3 am , can be difficult to fall back asleep Reason (s) why patient wakes up during the night : unknown Estimated total sleep time ( in a 24 hour period of time) : 6 Naps : No PATIENT-ENTERED QUESTIONNAIRE SLEEP SCORES 03/03/2024 Sleep Questions Reason for visit: Sleep apnea Difficulty falling or staying asleep or poor sleep quality On average, hours of sleep in 24 hours: 6 Average hours of CPAP per night: 8 Percent of nights CPAP used at least 4 hours: 100 Accidents or near accidents due to drowsy drivin Multiple values from one day are sorted in reverse-chronological order 07/05/2021 08/22/2021 03/03/2024 Willard Sleepiness Scale Score 2 (No clinically significant daytime sleepiness) 4 (No clinically significant daytime sleepiness) 2 (No clinically significant daytime sleepiness) 07/05/2021 08/22/2021 03/03/2024 PROMIS CAT Sleep Disturbance PROMIS Sleep Disturbance T-Score 49 (within normal limits) 56 (mild) 49 (within normal limits) PROMIS Sleep Disturbance Percentile 54 27 54 09/02/2020 11/02/2020 08/22/2021 Insomnia Severity Index Score 18 8 11 07/05/2021 08/22/2021 03/03/2024 PHQ-9 Score 5 4 2 07/28/2021 11/07/2023 03/03/2024 PROMIS Global Health - (T-Scores - the mean of general population = 50. Five points is a clinically meaningful difference.) Physical T-Score 47.7 47.7 57.7 50.8 Mental T-Score 45.8 45.8 53.3 43.5 ALLERGIES Allergen Reactions Environmental Aller* Grass, Trees, Weeds, Molds, Dust and Dust Mites, Dogs, Cats, Horses, Cattle, CURRENT MEDICATIONS: Magnesium Citrate 150mg (Pure Encapsulations) Take 4 capsules daily. lactobacillus combination no.4 (PROBIOTIC) 3 billion cell cap Take 1 capsule by mouth once daily. flaxseed oil-omega 3,6,9 1,300 mg-845 mg -117 mg-117 mg cap Take by mouth. Multivitamins-Mineral s-Lutein (MULTIVITAMIN 50 PLUS) tab Take 1 tablet by mouth once daily. Calcium b #4-Q9-Mezbdmylocj (CITRACAL D + HEART HEALTH) 315-250-200 mg-unit-mg tab Take by mouth once daily. irbesartan (AVAPRO) 150 mg ORAL tablet Take 150 mg by mouth once daily. PHYSICAL EXAMINATION: Vital Signs: BP 128/7 (more content not included)... Normal [facility] 02-17-2025 [place] Telephone (RADHAT) NOVA SALINAS ([id number]) 1960 F Date Time Provider Department 02/17/25 AINSLEY RITTER During your visit today, we recorded the following information about you: Ainsley Ritter APRN.VALENCIA 02/17/2025 12:25 PM Signed Please fax my note to PCP Ainsley Ritter APRN.Shashank Aguayo LPN 02/17/2025 1:18 PM Signed Office note faxed. Shashank Nunez LPN Allergies As of Date: 02/17/2025 (No Active Allergies) Date Reviewed: 02/17/2025 Reviewed by: Shashank Nunez LPN - Fully Assessed Prescriptions as of 02/17/2025 - CPAP/BIPAP/OTHER APAP 5-10 cmH2O DME [facility] - Magnesium Citrate 150mg (Pure Encapsulations) Take 4 capsules daily. - lactobacillus combination no.4 (PROBIOTIC) 3 billion cell cap Take 1 capsule by mouth once daily. - flaxseed oil-omega 3,6,9 1,300 mg-845 mg -117 mg-117 mg cap Take by mouth. - Multivitamins-Mineral s-Lutein (MULTIVITAMIN 50 PLUS) tab Take 1 tablet by mouth once daily. - Calcium Cmb #8-J1-Supdzjsfqti (CITRACAL D + THE MELT) 315-250-200 mg-unit-mg tab Take by mouth once daily. - irbesartan (AVAPRO) 150 mg ORAL tablet Take 150 mg by mouth once daily. Meds Comments as of 07/19/2019: Pt takes H AND H Science supplement daily Problem List As Of Date 02/17/2025 Noted Resolved DERMATITIS NOS [L25.9] HEADACHE [R51] Diaphragmatic hernia [K44.9] 12/26/2011 Dyspepsia [R10.13] 05/09/2018 Diaphragmatic hernia without obstruction or malia*05/09/2018 Gastroesophageal reflux disease [K21.9] 05/09/2018 External hemorrhoid, thrombosed [K64.5] 10/19/2018 FRANKI (obstructive sleep apnea) [G47.33] 08/29/2019 Encounter Status:Closed by SHASHANK NUNEZ on 02/17/25 [facility] 02-14-2025 [facility] Telephone (FRANNIE) NOVA SALINAS ([id number]) 1960 F Date Time Provider Department 02/14/25 AINSLEY RITTER During your visit today, we recorded the following information about you: Shashank Nunez LPN 02/14/2025 3:54 PM Signed Please send 30 day download for upcoming appointment. Shashank Nunez LPN Allergies As of Date: 02/14/2025 Noted Allergy Reaction Environmental allergies [Other] 03/21/2006 Comments: Grass, Trees, Weeds, Molds, Dust and Dust Mites, Dogs, Cats, Horses, Cattle, Date Reviewed: 03/04/2024 Reviewed by: Karli Cohen LPN - Fully Assessed Reason for Visit: PAP Therapy Follow Up [1285] Prescriptions as of 02/17/2025 - Magnesium Citrate 150mg (Pure Encapsulations) Take 4 capsules daily. - lactobacillus combination no.4 (PROBIOTIC) 3 billion cell cap Take 1 capsule by mouth once daily. - flaxseed oil-omega 3,6,9 1,300 mg-845 mg -117 mg-117 mg cap Take by mouth. - Multivitamins-Mineral s-Lutein (MULTIVITAMIN 50 PLUS) tab Take 1 tablet by mouth once daily. - Calcium Cmb #1-A0-Akzwumvtwuh (CITRACAL D + THE MELT) 315-250-200 mg-unit-mg tab Take by mouth once daily. - irbesartan (AVAPRO) 150 mg ORAL tablet Take 150 mg by mouth once daily. Meds Comments as of 07/19/2019: Pt takes H AND H Science supplement daily Problem List As Of Date 02/14/2025 Noted Resolved DERMATITIS NOS [L25.9] HEADACHE [R51] Diaphragmatic hernia [K44.9] 12/26/2011 Dyspepsia [R10.13] 05/09/2018 Diaphragmatic hernia without obstruction or malia*05/09/2018 Gastroesophageal reflux disease [K21.9] 05/09/2018 External hemorrhoid, thrombosed [K64.5] 10/19/2018 FRANKI (obstructive sleep apnea) [G47.33] 08/29/2019 Encounter Status:Closed by SHASHANK NUNEZ on 02/17/25 [facility] Ang[facility] Convert Enzymeon 12-23-2024 ANGIOT-CONV.ENZ 50 U/L Normal 14-82 [facility] Comment on above: Result Comment: Perf ormed at: CB - [facility] [address] [id number] Roller Skates Assembler: Santiago Pressley PhD, Phone: [phone] Performed By: #### L 509.8000, L3100.7950, L3100.6900 #### [facility] [address] [place], [address] Antinuclear Antibody, IFAon 12-23-2024 ROSARIO, IFA Positive Abnormal . [facility] Comment on above: Result Comment: Nega tive <1:80 Borderline 1:80 Positive >1:80 Performed By: #### L 509.8000, L3100.7950, L3100.6900 #### [facility] [address] [place], [address] ROSARIO-NOTE Comment Normal . [facility] Comment on above: Result Comment: Brenda medellin Potential Disease Association Homogeneous Systemic Lupus Erythematosus, Drug Induced Systemic Lupus Erythematosus, Chronic Autoimmune hepatitis, Juvenile Idiopathic Arthritis Speckled Sjogren Syndrome, Systemic Lupus Erythematosus, Subacute Cutaneous Lupus, Lupus, Congenital Heart Block, Mixed Connective Tissue Disease, Scleroderma-diffuse, Scleroderma-Autoimmune Myositis Overlap Syndrome, Systemic Lupus Bnncrdlkptrcm-Qgwazqniqfk-Rnfqafifyd Myositis Overlap Syndrome, Systemic Autoimmune Rheumatic Disease, Undifferentiated Connective Tissue Disease Nucleolar Systemic Sclerosis, Scleroderma-Autoimmune Myositis Overlap Syndrome, Sjogren Syndrome, Raynaud phenomenon, Pulmonary Arterial Hypertension, Systemic Autoimmune Rheumatic Disease, Cancer Centromere Scleroderma-CREST, Limited Cutaneous SSc, Raynaud's Phenomenon, Primary Biliary Cholangitis Nuclear Dot Primary Biliary Cholangitis Nuclear Primary Biliary Cholangitis, Autoimmune Membrane Hepatitis/Liver disease, Systemic Autoimmune Rheumatic Disease, Autoimmune Cytopenias, Linear Scleroderma, Antiphospholipid Syndrome Performed at: [address] [id number] Roller Skates Assembler: Santiago Pressley PhD, Phone: [phone] Performed By: #### L 509.8000, L3100.7950, L3100.6900 #### [facility] [address] [place], [place], [id number] CENTRIOLE TNP Normal . [facility] Comment on above: Performed By: #### L 509.8000, L3100.7950, L3100.6900 #### [facility] [address] [place], [place], [id number] CENTROMERE PAT. 1:640 Abnormal . [facility] Comment on above: Result Comment: ICAP nomenclature: AC-3 Performed By: #### L 509.8000, L3100.7950, L3100.6900 #### [facility] [address] [place], [address] HOMOGENEOUS PAT TNP Normal . [facility] Comment on above: Performed By: #### L 509.8000, L3100.7950, L3100.6900 #### [facility] [address] [place], [address] MIDBODY TNP Normal . [facility] Comment on above: Performed By: #### L 509.8000, L3100.7950, L3100.6900 #### [facility] [address] [place], [address] NUCLEAR DOT TNP Normal . [facility] Comment on above: Performed By: #### L 509.8000, L3100.7950, L3100.6900 #### [facility] [address] [place], [address] NUCLEAR MEMBRAN TNP Normal . [facility] Comment on above: Performed By: #### L 509.8000, L3100.7950, L3100.6900 #### [facility] [address] [place], [address] NUCLEOLAR PAT. TNP Normal . [facility] Comment on above: Performed By: #### L 509.8000, L3100.7950, L3100.6900 #### [facility] [address] [place], [address] PNCA TNP Normal . [facility] Comment on above: Performed By: #### L 509.8000, L3100.7950, L3100.6900 #### [facility] [address] [place], [address] SPECKLED PAT. TNP Normal . [facility] Comment on above: Performed By: #### L 509.8000, L3100.7950, L3100.6900 #### [facility] [address] [place], [address] SPINDLE APPARAT TNP Normal . [facility] Comment on above: Performed By: #### L 509.8000, L3100.7950, L3100.6900 #### [facility] [address] [place], [address] L509.8000on 12-21-2024 Syphilis Abs Non-Reactive Normal [facility] Comment on above: Performed By: #### L 509.8000, L3100.7950, L3100.6900 #### [facility] [address] [place], [address] Sinus/Facial Boneon 05-30-20 Sinus/Facial Bone [facility] [address] [place] [address] Sinus/Facial Bone MR#: [id number] Acct: [id number] Name: NOVA SALINAS Rep #: [id number] : 1960 F 63 From: Jaxson mahoney DO PCP: Dr. Crispin Ortega MD Status: [facility] Study: Sinus/Facial Bone Date of Exam: 05/30/24 Exam# [id number] Ordering Dr: Crispin Ortega MD [id number] EXAM: CT MAXILLOFACIAL WITHOUT INTRAVENOUS CONTRAST CLINICAL INDICATION: loss of smell/taste TECHNIQUE: Helically acquired images were obtained of the face without intravenous contrast. This CT exam was performed using one or more of the following dose reduction techniques: automated exposure control, adjustment of the mA and/or kV according to patient size, and/or use of iterative reconstruction technique. COMPARISON: No relevant prior studies available. FINDINGS: BONES/JOINTS: Mild rightward nasal septal deviation without significant spurring. Mild/moderate bilateral TMJ arthrosis. Degenerative changes partially visualized in the cervical spine. No displaced fracture. No discrete lytic or blastic abnormalities. SOFT TISSUES: No significant abnormality. No focal subcutaneous swelling. No discrete fluid collections. ORBITS: No acute findings. SINUSES: Hypoplastic frontal sinuses. The frontal recesses are otherwise clear. Trace mucosal thickening in the alveolar recess of the right maxillary sinus. The maxillary sinuses are clear. Ostiomeatal units are clear. Ethmoid and sphenoid sinuses are clear. Lateral recesses are patent. Partial dehiscence of the anterior ethmoid artery canals. Moderate ductal fibroid fossa. Symmetric ethmoid skull base. MASTOID AIR CELLS: Normal as visualized. Clear. DENTAL: No significant findings. No periodontal osseous erosion. NASAL CAVITY/SEPTUM: The olfactory cleft and remainder of the nasal cavity is patent. OROPHARYNX: Tonsillar calcifications are likely the result of chronic and/or recurrent tonsillar infection/inflammatio n. CT/Sinus/Facial Bone IMPRESSION: 1. Mild rightward nasal septal deviation without significant tearing. Olfactory flat the remainder of the nasal cavity is clear. 2. Hypoplastic frontal sinuses and other variant anatomic features as detailed above. Trace mucosal thickening in the paranasal sinuses without sinus outflow pathway obstruction. Electronically Signed: Jaxson Diehl, at 0:01 EDT , CC: Dr. Crispin Ortega MD Dietitian Teaching: [facility] LAB TEST Normal [facility] Comment on above: Order Comment: [id number] SARS NUCLEOCAPSID SERUM RMT [id number] SARS NUCLEOCAPSID SERUM RMT Result Comment: TEST RESULTS LIMITS SARS-CoV-2 Ab, Nucleocapsid Negative Negative This sample does not contain detectable SARS-CoV-2 antibodies. This negative result does not rule out SARS-CoV-2 infection. Correlation with epidemiologic risk factors and other clinical and laboratory findings is recommended. Serologic results should not be used as the sole basis to diagnose or exclude recent SARS-CoV-2 infection. This assay will not detect antibodies induced by the currently available SARS-CoV-2 vaccines. The current vaccines elicit antibodies specific to the viral spike protein. [facility] offers two test codes that detect viral spike-specific antibodies: [id number] SARS-CoV-2 Semi-Quantitative Total Antibody, Jorge and 412920 SARS-CoV-2 Antibody, IgG, Jorge (Qualitative). Positive results with this SARS-CoV-2 Antibodies, Nucleocapsid assay suggest recent or previous natural infection with SARS-CoV-2. TESTING PERFORMED AT [facility]. ORIGINAL REPORT ON FILE IN LAB CONTAINS ADDITIONAL TEST SITE INFORMATION. Performed By: #### L 503.0105, L501.6710, L506.1000, L801.1541, L3200.1600 #### [facility] [address] [place], [address] Immunoglobulin John 4 IMMUNOGLOB E QN 895 IU/mL High 6-495 [facility] Comment on above: Result Comment: Perf ormed at: [address] [id number] [employer]sembler: Thea Brown MD, Phone: [phone] Performed By: #### L 503.0105, L501.6710, L506.1000, L801.1541, L3200.1600 #### [facility] [address] [place], [place], [id number] CRPon 04-23-2024 C-REACTIVE PROT < 2.90 Normal 0.0-3.0 [facility] Comment on above: Result Comment: C-Re active Protein (CRP) provides useful information for the diagnosis, therapy and monitoring of inflammatory processes and associated diseases. For the evaluation of Relative Risk for Cardiovascular Disease, a High Sensitivity CRP (HSCRP) should be ordered. Performed By: #### L 503.0105, L501.6710, L506.1000, L801.1541, L3200.1600 #### [facility] [address] [place], [place], [id number] Vitamin B12on 04-23-2024 Cobalamin (Vitamin B12) [Mass/Vol] 1851 pg/mL High 211-911 [facility] Comment on above: Performed By: #### L 503.0105, L501.6710, L506.1000, L801.1541, L3200.1600 #### [facility] [address] [place], [address] Vitamin D,25 Hydroxyon 04-23 Vitamin D 25-OH 78.9 ng/mL Normal [facility] Comment on above: Result Comment: Valentine min D 25(OH) Status Range Deficiency <20 ng/mL (50nmol/L) Insufficiency 20 - 30 ng/mL (50 - 75 nmol/L) Sufficiency 30 - 100 ng/mL (75 - 250 nmol/L) Toxicity >100 ng/mL (>250 nmol/L) Performed By: #### L 503.0105, L501.6710, L506.1000, L801.1541, L3200.1600 #### [facility] [address] [place], [address] CNOVon 03-04-2024 CNOV Office Visit (SLEWST ) NOVA SALINAS ([id number]) 1960 F Date Time Provider Department 03/04/24 8:00 AM AINSLEY RITTER During your visit today, we recorded the following information about you: Pulse Respiration Blood pressure Weight 86/minute 16/minute 122/64 65.1 kg Ainsley Ritter APRN.CNP 03/04/2024 8:32 AM Signed [facility] Follow up/ Established patient visit Date of last visit : 12/11/23 The following Impression/Plan was copied and pasted from the patient's last [facility] visit on 12/11/23: ASSESSMENT/PLAN: 1. Obstructive sleep apnea (adult) (pediatric) - ICD9: 327.23, ICD10: G47.33 (primary diagnosis) Patient with PAP complaints as above, of which etiologies are uncertain. Question if not getting adequate pressure through the night - while overall AHI is normalized, possible that during periods of the night (I.e. REM sleep or if supine) needs higher AHI. Possible that not getting up to that higher pressure is resulting in abnormal sounds. Otherwise history would suggest an overall perceived benefit. Subjective and objective PAP compliance confirmed. In attempt to troubleshoot complaints will change patient to Auto PAP at setting of 5-9 cmH2O to allow for higher pressure if needed, and likewise lower pressure, if not having respiratory events. Uncertain if this will impact noise that patient is hearing, but will ask her to inform us of whether changes in noise noted over the next week. Rx sent to [facility] ([facility]). Discussed with patient: the physiology of OSAS, medical conditions associated with OSAS (DM, HTN, CAD, Depression, Stroke, Headache...) and treatment options beside PAP. Advised patient to avoid activities that could harm self or others when tired/sleepy, including driving and/or operating heavy machinery. Discussed importance of good sleep hygiene. Martir Hong MD Here for follow up for FRANKI, pressure changed at last visit to see if that would help with noisy machine. Pressure setting is now 5-9 cmH2O, residual AHI is similar at 4.7. The noise did resolve. She reports she is waking less since the pressure change, and goes back to sleep more quickly. Dislikes PAP therapy but recognizes its importance, never sleeps w/o it. Her mom is hospitalized in [place] so she has been traveling back and forth. SLEEP APNEA Sleep apnea type : FRANKI, Most Recent Apnea-Hypopnea Index (AHI): 43 Treatment : PAP therapy DME: [facility] PAP History: Current PAP settin-9 cm H2O. Reviewed objective PAP compliance data: Mask type: full face mask Uses eye ointment, zinc oxide in nose and tapes mouth shut in order to deal with dry eyes and mouth There is a perceived benefit by the patient: better sleep --------- PATIENT-ENTERED QUESTIONNAIRE SLEEP SCORES 03/03/2024 Sleep Questions Reason for visit: Sleep apnea Difficulty falling or staying asleep or poor sleep quality On average, hours of sleep in 24 hours: 6 Average hours of CPAP per night: 8 Percent of nights CPAP used at least 4 hours: 100 Accidents or near accidents due to drowsy drivin 07/05/2021 08/22/2021 03/03/2024 Willard Sleepiness Scale Score 2 (No daytime sleepiness) 4 (No daytime sleepiness) 2 (No daytime sleepiness) 07/05/2021 08/22/2021 03/03/2024 PROMIS CAT Sleep Disturbance PROMIS Sleep Disturbance T-Score 49 (within normal limits) 56 (mild) 49 (within normal limits) PROMIS Sleep Disturbance Percentile 54 27 54 09/02/2020 11/02/2020 08/22/2021 Insomnia Severity Index Score 18 8 11 07/05/2021 08/22/2021 03/03/2024 PHQ-9 Score 5 4 2 07/28/2021 11/07/2023 03/03/2024 PROMIS Global Health - (T-Scores - the mean of general population = 50. Five points is a clinically meaningful difference.) Physical T-Score 47.7 47.7 57.7 50.8 Mental T-Score 45.8 45.8 53.3 43.5 ALLERGIES Allergen Reactions Environmental Aller* Grass, Trees, Weeds, Molds, Dust and Dust Mites, Dogs, Cats, Horses, Cattle, CURRENT MEDICATIONS: Magnesium Citrate 150mg (Pure Encapsulations) Take 4 capsules daily. lactobacillus combination no.4 (PROBIOTIC) 3 billion cell cap Take 1 capsule by mouth once daily. flaxseed oil-omega 3,6,9 1,300 mg-845 mg -117 mg-117 mg cap Take by mouth. Multivitamins-Mineral s-Lutein (MULTIVITAMIN 50 PLUS) tab Take 1 tablet by mouth once daily. Calcium Cmb #5-Q1-Ytkbaoseqwx (CITRACAL D + THE MELT) 315-250-200 mg-unit-mg tab Take by mouth once daily. irbesartan (AVAPRO) 150 mg ORAL tablet Take 150 mg by mouth once daily. Thyrosol (Metagenics) Take 1 tablet by mouth twice daily with meals. busPIRone (BUSPAR) 5 mg tablet Take 1 tablet by mouth twice daily. Meriva-SF (Riya) Take 2 capsules by mouth twice daily. PHYSICAL EXAMINATIO (more content not included)... Normal [facility] 02-26-2024 [facility] Telephone ([facility]) NOVA SALINAS ([id number]) 1960 F Date Time Provider Department 02/26/24 AINSLEY RITTER [facility] During your visit today, we recorded the following information about you: Rogelio Llamas MA 02/26/2024 12:54 PM Signed Allergies As of Date: 02/26/2024 Noted Allergy Reaction Environmental allergies [Other] 03/21/2006 Comments: Grass, Trees, Weeds, Molds, Dust and Dust Mites, Dogs, Cats, Horses, Cattle, Date Reviewed: 12/11/2023 Reviewed by: Martir Hong Jr., MD - Fully Assessed Reason for Visit: PAP Therapy Follow Up [1285] Cmt: 01/27/24 - 02/25/24 Prescriptions as of 02/26/2024 - Thyrosol (Metagenics) Take 1 tablet by mouth twice daily with meals. - busPIRone (BUSPAR) 5 mg tablet Take 1 tablet by mouth twice daily. - Magnesium Citrate 150mg (Pure Encapsulations) Take 4 capsules daily. - Meriva-SF (Riya) Take 2 capsules by mouth twice daily. - lactobacillus combination no.4 (PROBIOTIC) 3 billion cell cap Take 1 capsule by mouth once daily. - flaxseed oil-omega 3,6,9 1,300 mg-845 mg -117 mg-117 mg cap Take by mouth. - Multivitamins-Mineral s-Lutein (MULTIVITAMIN 50 PLUS) tab Take 1 tablet by mouth once daily. - Calcium Cmb #6-Q7-Tbdkszovgfy (CITRACAL D + THE MELT) 315-250-200 mg-unit-mg tab Take by mouth once daily. - irbesartan (AVAPRO) 150 mg ORAL tablet Take 150 mg by mouth once daily. Meds Comments as of 07/19/2019: Pt takes H AND H Science supplement daily Problem List As Of Date 02/26/2024 Noted Resolved DERMATITIS NOS [L25.9] HEADACHE [R51] Diaphragmatic hernia [K44.9] 12/26/2011 Dyspepsia [R10.13] 05/09/2018 Diaphragmatic hernia without obstruction or malia*05/09/2018 Gastroesophageal reflux disease [K21.9] 05/09/2018 External hemorrhoid, thrombosed [K64.5] 10/19/2018 FRANKI (obstructive sleep apnea) [G47.33] 08/29/2019 Encounter Status:Closed by ROGELIO LLAMAS on 02/26/24 Normal [facility] Absolute lymphocyte countOrd ered By: Dr. Gonzales on 12-03-2022 Lymphocytes Auto (Unsp spec) [#/Vol] 1.40 10*3/uL 0.83-4.51 [facility] Basophil percentageOrdered B y: Dr. Gonzales on 12-03-2022 Basophils/100 WBC (Bld) 0.2 % 0-1 [facility] Bilirubin [Mass/Vol] 0.60 mg/dL 0.20-1.00 [facility] Comment on above: For patients on eltr ombopag therapy, use of Dimension [place] TBIL is not recommended. Chloride [Moles/Vol] 104 mmol/L 98-107 [facility] Eosinophils/100 WBC (Bld) 3.2 % 0-5 [facility] Glucose [Mass/Vol] 94 mg/dL 74-106 [facility] Neutrophils (Bld) [#/Vol] 2.1 10*3/uL 2.0-7.7 [facility] Neutrophils/100 WBC (Bld) 52.8 % 47-70 [facility] Potassium [Moles/Vol] 4.2 mmol/L 3.5-5.1 [facility] Protein [Mass/Vol] 7.6 g/dL 6.4-8.2 [facility] Sodium [Moles/Vol] 138 mmol/L 136-145 [facility] WBC (Bld) [#/Vol] 4.0 10*3/uL 4.4-11.0 [facility] Basophil percentageOrdered B y: Dr. Ortega on 12-03-2022 Cholesterol [Mass/Vol] 170 mg/dL <200 [facility] Comment on above: <200 mg/dL Desirable 200-240 mg/dL Borderline >240 mg/dL High Risk Triglyceride [Mass/Vol] 81 mg/dL <199 [facility] Comment on above: The drugs N-Acetylcy steine and Metamizole may falsely depress this assay.Serum Triglycerides Reference Interval Normal <150 mg/dL Borderline high 150 - 199 mg/dL High 200 - 499 mg/dL Very High > or = 500 mg/dL Blood erythrocytes count (nu mber/volume)Ordered By: Dr. Gonzales on 12-03-2022 RBC (Bld) [#/Vol] 4.57 10*6/uL 4.2-5.4 [facility] Blood hemoglobin measurement (mass/volume)Ordered By: Dr. Gonzales on 12-03-2022 Hemoglobin (Bld) [Mass/Vol] 13.4 g/dL 12.0-15.0 [facility] Blood lymphocytes/100 leukoc ytesOrdered By: Dr. Gonzales on 12-03-2022 Lymphocytes/100 WBC (Bld) 34.9 % 19-41 [facility] Blood monocytes/100 leukocyt esOrdered By: Dr. Gonzales on 12-03-2022 Monocytes/100 WBC (Bld) 8.7 % 0-10 [facility] Blood platelet mean volumeOr dered By: Dr. Gonzales on 12-03-2022 Platelet mean volume (Bld) [Entitic vol] 12.1 fL 6.2-12.0 [facility] Determination of erythrocyte mean corpuscular volume (MCV)Ordered By: Dr. Gonzales on 12-03-2022 MCV (RBC) [Entitic vol] 89.1 fL 81-99 [facility] Erythrocyte sedimentation ra teOrdered By: Dr. Gonzales on 12-03-2022 ESR (Bld) [Velocity] 8 mm/h 0-30 [facility] Hematocrit Auto (Bld) [Volum e fraction]Ordered By: Dr. Gonzales on 12-03-2022 Hematocrit (Bld) [Volume fraction] 40.7 % 37-47 [facility] - Chemistry and C hemistry - challengeOrdered By: Dr. Gonzales on 12-03-2022 ALP [Catalytic activity/Vol] 57 U/L 45-117 [facility] ALT [Catalytic activity/Vol] 32 U/L 13-56 [facility] CO2 [Moles/Vol] 30.0 mmol/L 21.0-32.0 [facility] Globulin (S) [Mass/Vol] 3.6 g/dL 2.2-4.2 [facility] Urea nitrogen/Creatinine [Mass ratio] 16.7 mg/mg 10-20 [facility] - Chemistry and C hemistry - challengeOrdered By: Dr. Ortega on 12-03-2022 Free T4 [Mass/Vol] 1.12 ng/dL 0.76-1.46 [facility] - Hematology and Cell countsOrdered By: Dr. Gonzales on 12-03-2022 Erythrocyte distribution width (RBC) [Entitic vol] 40.5 fL 35.1-43.9 [facility] Erythrocyte distribution width (RBC) [Ratio] 12.5 % 11.6-14.6 [facility] Immature granulocytes/100 WBC (Bld) 0.200 % 0.0-0.9 [facility] Comment on above: IG% - Immature Granu locytes (promyelocytes, myelocytes and metamyelocytes) > 1% indicates that a LEFT SHIFT is Present. MCH (RBC) [Entitic mass] 29.3 pg 27.0-32.0 [facility] Nucleated RBC/100 WBC (Bld) [Ratio] 0 % 0-5 [facility] MCHC Auto (RBC) [Mass/Vol]Or dered By: Dr. Gonzales on 12-03-2022 MCHC (RBC) [Mass/Vol] 32.9 g/dL 32-36 [facility] No Panel InformationOrdered By: Dr. Gonzales on 12-03-2022 Estimated GFR (MDRD) Amer 81 mL/min >60 [facility] Comment on above: GFR Calc Estimated GFR (MDRD) Non-Af Amer 67 mL/min >60 [facility] Comment on above: Non- GFR Calc No Panel InformationOrdered By: Dr. Ortega on 12-03-2022 Thyroid Stimulating Hormone (TSH) 2.12 uIU/mL 0.358-3.74 [facility] Urine Microalbumin/Creatinine Ratio TNP [facility] Comment on above: Test not performed Platelets bldOrdered By: Dr. Gonzales on 12-03-2022 Platelets (Bld) [#/Vol] 158 10*3/uL 150-450 [facility] Serum or plasma C reactive p rotein measurement (mass/volume)Ordered By: Dr. Gonzales on 12-03-2022 CRP [Mass/Vol] mg/L 0.0-3.0 [facility] Comment on above: C-Reactive Protein ( CRP) provides useful information for thediagnosis, therapy and monitoring of inflammatory processesand associated diseases. For the evaluation of Relative Riskfor Cardiovascular Disease, a High Sensitivity CRP (HSCRP)should be ordered. Serum or plasma albumin cynthia urement (mass/volume)Ordered By: Dr. Gonzales on 12-03-2022 Albumin [Mass/Vol] 4.0 g/dL 3.2-5.0 [facility] Serum or plasma albumin/glob ulin mass ratioOrdered By: Dr. Gonzales on 12-03-2022 Albumin/Globulin [Mass ratio] 1.1 {ratio} 0.9-2.4 [facility] Serum or plasma calcium cynthia urement (mass/volume)Ordered By: Dr. Gonzales on 12-03-2022 Calcium [Mass/Vol] 9.4 mg/dL 8.5-10.1 [facility] Serum or plasma cholesterol in HDL measurement (mass/volume)Ordered By: Dr. Ortega on 12-03-2022 Cholesterol in HDL [Mass/Vol] 76 mg/dL >40 [facility] Comment on above: The drugs N-Acetylcy steine and Metamizole may falsely depress this assay. Reference Range HDL <40 mg/dL Low HDL Cholesterol HDL >or= 60 mg/dL High HDL Cholesterol Serum or plasma cholesterol in VLDL measurement (mass/volume)Ordered By: Dr. Ortega on 12-03-2022 Cholesterol in VLDL [Mass/Vol] 16 mg/dL 5-40 [facility] Serum or plasma creatinine m easurement (mass/volume)Ordered By: Dr. Gonzales on 12-03-2022 Creatinine [Mass/Vol] 0.90 mg/dL 0.55-1.02 [facility] Comment on above: The validity of the calculated GFR & GFRAA in patients over 70 years has not been determined. Clinical correlation is essential. Serum or plasma low density lipoprotein (LDL) cholesterol measurement (mass/volume)Ordered By: Dr. Ortega on 12-03-2022 Cholesterol in LDL [Mass/Vol] 78 mg/dL 0-130 [facility] Serum or plasma urea nitroge n measurement (mass/volume)Ordered By: Dr. Gonzales on 12-03-2022 Urea nitrogen [Mass/Vol] 15 mg/dL 7-18 [facility] Thin prep Papanicolaou smear with manual screeningOrdered By: Dr. Gonzales on 12-03-2022 Thin prep Papanicolaou smear with manual screening 24 U/L 15-37 [facility] Thin prep Papanicolaou smear with manual screening 4 5-15 [facility] Thin prep Papanicolaou smear with manual screeningOrdered By: Dr. Ortega on 12-03-2022 Thin prep Papanicolaou smear with manual screening < 5.0 mg/L NO RANGE EST. [facility] Urine creatinine measurement (mass/volume)Ordered By: Dr. Ortega on 12-03-2022 Creatinine (U) [Mass/Vol] 14.70 mg/dL NO RANGE EST. [facility] Absolute lymphocyte counton 04-16-2022 Lymphocytes Auto (Unsp spec) [#/Vol] 1.51 10*3/uL 0.83-4.51 [facility] Work Phone: Basophil percentageon 2021 Basophils/100 WBC (Bld) 0.4 % 0-1 [facility] Work Phone: Bilirubin [Mass/Vol] 0.50 mg/dL 0.20-1.00 [facility] Work Phone: Comment on above: For patients on eltr ombopag therapy, use of Dimension [place] TBIL is not recommended. Chloride [Moles/Vol] 104 mmol/L 98-107 [facility] Work Phone: Eosinophils/100 WBC (Bld) 1.8 % 0-5 [facility] Work Phone: Glucose [Mass/Vol] 93 mg/dL 74-106 [facility] Work Phone: Neutrophils (Bld) [#/Vol] 3.4 10*3/uL 2.0-7.7 [facility] Work Phone: Neutrophils/100 WBC (Bld) 61.7 % 47-70 [facility] Work Phone: Potassium [Moles/Vol] 4.1 mmol/L 3.5-5.1 [facility] Work Phone: Protein [Mass/Vol] 6.9 g/dL 6.4-8.2 [facility] Work Phone: Sodium [Moles/Vol] 139 mmol/L 136-145 [facility] Work Phone: WBC (Bld) [#/Vol] 5.4 10*3/uL 4.4-11.0 [facility] Work Phone: Blood erythrocytes count (nu mber/volume)on 04-16-2022 RBC (Bld) [#/Vol] 4.27 10*6/uL 4.2-5.4 [facility] Work Phone: Blood hemoglobin measurement (mass/volume)on 04-16-2022 Hemoglobin (Bld) [Mass/Vol] 12.7 g/dL 12.0-15.0 [facility] Work Phone: Blood lymphocytes/100 leukoc yteson 04-16-2022 Lymphocytes/100 WBC (Bld) 27.8 % 19-41 [facility] Work Phone: Blood monocytes/100 leukocyt eson 04-16-2022 Monocytes/100 WBC (Bld) 8.1 % 0-10 [facility] Work Phone: Blood platelet mean volumeon 04-16-2022 Platelet mean volume (Bld) [Entitic vol] 11.8 fL 6.2-12.0 [facility] Work Phone: Determination of erythrocyte mean corpuscular volume (MCV)on 04-16-2022 MCV (RBC) [Entitic vol] 87.4 fL 81-99 [facility] Work Phone: Erythrocyte sedimentation ra reginaldo 04-16-2022 ESR (Bld) [Velocity] 4 mm/h 0-30 [facility]: Hematocrit Auto (Bld) [Volum e fraction]on 04-16-2022 Hematocrit (Bld) [Volume fraction] 37.3 % 37-47 [facility] Work Phone: Laboratory - Chemistry and C hemistry - challengeon 04-16-2022 ALP [Catalytic activity/Vol] 42 U/L 45-117 [facility] Work Phone: ALT [Catalytic activity/Vol] 29 U/L 13-56 [facility] Work Phone: CO2 [Moles/Vol] 31.0 mmol/L 21.0-32.0 [facility] Work Phone: Globulin (S) [Mass/Vol] 3.2 g/dL 2.2-4.2 [facility] Work Phone: Urea nitrogen/Creatinine [Mass ratio] 24.2 mg/mg 10-20 [facility] Work Phone: Laboratory - Hematology and Cell countson 04-16-2022 Erythrocyte distribution width (RBC) [Entitic vol] 39.1 fL 35.1-43.9 [facility] Work Phone: Erythrocyte distribution width (RBC) [Ratio] 12.2 % 11.6-14.6 [facility] Work Phone: Immature granulocytes/100 WBC (Bld) 0.200 % 0.0-0.9 [facility] Work Phone: Comment on above: IG% - Immature Granu locytes (promyelocytes, myelocytes and metamyelocytes) > 1% indicates that a LEFT SHIFT is Present. MCH (RBC) [Entitic mass] 29.7 pg 27.0-32.0 [facility] Work Phone: Nucleated RBC/100 WBC (Bld) [Ratio] 0 % 0-5 [facility] Work Phone: MCHC Auto (RBC) [Mass/Vol]on 04-16-2022 MCHC (RBC) [Mass/Vol] 34.0 g/dL 32-36 [facility] Work Phone: No Panel Informationon 04-16 Estimated GFR (MDRD) Amer 85 mL/min >60 [facility] Work Phone: Comment on above: GFR Calc Estimated GFR (MDRD) Non-Af Amer 70 mL/min >60 [facility] Work Phone: Comment on above: Non- GFR Calc Platelets bldon 04-16-2022 Platelets (Bld) [#/Vol] 159 10*3/uL 150-450 [facility] Work Phone: Serum or plasma C reactive p rotein measurement (mass/volume)on 04-16-2022 CRP [Mass/Vol] mg/L 0.0-3.0 [facility] Work Phone: Comment on above: C-Reactive Protein ( CRP) provides useful information for thediagnosis, therapy and monitoring of inflammatory processesand associated diseases. For the evaluation of Relative Riskfor Cardiovascular Disease, a High Sensitivity CRP (HSCRP)should be ordered. Serum or plasma albumin cynthia urement (mass/volume)on 06-04-2022 Albumin [Mass/Vol] 3.7 g/dL 3.2-5.0 [facility] Work Phone: Serum or plasma albumin/glob ulin mass ratioon 04-16-2022 Albumin/Globulin [Mass ratio] 1.2 {ratio} 0.9-2.4 [facility] Work Phone: Serum or plasma calcium cynthia urement (mass/volume)on 04-16-2022 Calcium [Mass/Vol] 9.3 mg/dL 8.5-10.1 [facility] Work Phone: Serum or plasma creatinine m easurement (mass/volume)on 04-16-2022 Creatinine [Mass/Vol] 0.87 mg/dL 0.55-1.02 [facility] Work Phone: Comment on above: The validity of the calculated GFR & GFRAA in patients over 70 years has not been determined. Clinical correlation is essential. Serum or plasma urea nitroge n measurement (mass/volume)on 04-16-2022 Urea nitrogen [Mass/Vol] 21 mg/dL 7-18 [facility] Work Phone: Thin prep Papanicolaou smear with manual screeningon 04-16-2022 Thin prep Papanicolaou smear with manual screening 20 U/L 15-37 [facility] Work Phone: Thin prep Papanicolaou smear with manual screening 4 5-15 [facility] Work Phone: PROGRESSon 11-03-2020 PROGRESS HNO ID: [id number] Author: Dannielle Palm Service: ? Author Type: Psychologist Type: Progress Notes Filed: 11/03/2020 2:25 PM Note Text: Behavioral Sleep Medicine Follow up Dannielle Palm PSYD Virtual Visit Individual Therapy - 3 mins With the current coronavirus outbreak, we want to minimize the risk of exposing patients to this illness. I have reviewed this patient's chart and, per patient's request for an opportunity to be seen without having to present to the office, feel appropriate that this appointment be made a virtual visit. Those taking part in visit: patient and psychologist via [employer]. Consent for this visit received from patient. Session # 03 TREATMENT MODALITIES: CBT-i Motivational Interviewing SUBJECTIVE/OBJECTIVE: Pt notes improvement in her sleep over the brief course of CBT-I to date. Less awakenings and decreased length of awakenings Pt notes that had difficulty with her new mask last night - has tried at least 6 different masks, typically doesn't have issus using mask but struggles with facial puente/indents from headger issues, difficulty with exacerbating nasal fissure. Processed difficulties and reinforced her continued efforts at addressing these difficulties. S Time to Bed: 11:15pm Sleep Latency: 10 mins WASO - 20 to 30 mins Final Awakenin:30am Pt did complete sleep logs, reviewed in session. day 1 day 2 day 3 day 4 day 5 day 6 day 7 10/15/2020 10/16/2020 10/18/2020 10/19/2020 ####### AVERAGE 23:20 23:15 23:10 23:15 23:30 23:15 23:00 23:14 Bedtime 23:25 23:20 23:15 23:20 23:35 23:20 23:05 23:20 Lights out 5.00 5.00 5.00 5.00 30.00 5.00 5.00 8.57 Latency to fall asleep 60.00 30.00 30.00 90.00 45.00 120.00 20.00 56.43 Minutes awake in middle of night 6:30 6:30 6:10 6:00 6:00 6:15 6:20 6:15 Wake time 0.00 0.00 0.00 0.00 0.00 0.00 0.00 0.00 minutes awake too early 7:00 7:00 6:30 7:00 6:30 6:30 6:30 6:42 out of bed for day 7.58 7.67 7.25 7.67 6.92 7.17 7.42 7.38 Time in Bed 6.00 6.58 6.33 5.08 5.17 4.83 6.83 5.83 Total Sleep Time 79.12% 85.87% 87.36% 66.30% 74.70% 67.44% 92.13% 78.99% Sleep Efficiency day 1 day 2 day 3 day 4 day 5 day 6 day 7 ######## 10/23/2020 AVERAGE 23:15 0:10 23:15 23:15 23:15 23:00 23:21 Bedtime 23:20 0:15 23:20 23:15 23:20 23:00 23:25 Lights out 5.00 5.00 5.00 5.00 5.00 5.00 5.00 Latency to fall asleep 90.00 90.00 15.00 5.00 15.00 15.00 38.33 Minutes awake in middle of night 6:30 7:00 5:15 6:25 6:15 6:30 6:19 Wake time 0.00 0.00 0.00 0.00 0.00 0.00 0.00 minutes awake too early 6:45 7:30 6:00 6:30 6:35 6:35 6:39 out of bed for day 7.42 7.25 6.67 7.25 7.25 7.58 7.24 Time in Bed 5.58 5.17 5.58 7.00 6.58 7.17 6.18 Total Sleep Time 75.28% 71.26% 83.75% 96.55% 90.80% 94.51% 85.36% Sleep Efficiency day 1 day 2 day 3 day 4 day 5 day 6 day 7 ######## 10/31/2020 AVERAGE 23:10 23:05 0:15 23:00 23:30 23:24 Bedtime 23:15 23:10 0:20 23:05 23:35 23:29 Lights out 45.00 15.00 60.00 5.00 5.00 26.00 Latency to fall asleep 20.00 10.00 30.00 20.00 10.00 18.00 Minutes awake in middle of night 6:00 6:30 6:45 6:45 6:30 6:30 Wake time 0.00 0.00 0.00 0.00 0.00 0.00 minutes awake too early 6:30 6:40 7:00 7:00 6:35 6:45 out of bed for day 7.25 7.50 6.67 7.92 7.00 7.27 Time in Bed 5.67 6.92 4.92 7.25 6.67 6.28 Total Sleep Time 78.16% 92.22% 73.75% 91.58% 95.24% 86.19% Sleep Efficiency Reviewed action plan to prevent reoccurrence of insomnia including: Keeping same wake time every day Not trying too hard to sleep Creating buffer zone before bed Getting out of bed when unable to sleep Going to bed when sleepy but not before regular bedtime No napping Engage in problem solving, list making, and worrying earlier in the evening ASSESSMENT: Insomnia Severity Index Total Score: 8 [8-14 = Subthreshold insomnia] Insomnia Severity Index 09/02/2020 11/02/2020 Score 18 8 PHQ PHQ-9 Score: 2 [0-4 = Minimal Depression] not at all on item #9 PHQ-9 09/02/2020 11/02/2020 Score 9 2 Estimated Average sleep time per night = 6.5 hrs DIAGNOSIS: Chronic Insomnia ? PROGRESS TO DATE: Nursing Home Progress: Progress Short Term Condition: Progress ? GOALS/OBJECTIVES/INTE RVENTIONS: Pt has met treatment goals with BSM team, will revisit and follow up with our services if she has difficulty with tapering to lower dosage/discontinuing her trazodone Dannielle Palm Psy.D., [facility], Psychologist ([place] License [id number]) [facility] PROGRESSon 09-09-2020 PROGRESS HNO ID: [id number] Author: Dannielle Palm Service: ? Author Type: Psychologist Type: Progress Notes Filed: 09/09/2020 3:30 PM Note Text: Behavioral Sleep Medicine Consult Psychological Evaluation [id number] Patient was seen for an initial evaluation. All information is from patient report and review of medical record except when noted. This evaluation is NOT intended for forensic, disability or child custody purposes. Due to the federal and [place] state of emergency and the need for ongoing mental health services, the following visit was completed virtually to reduce the risk of COVID-19 exposure. Consent related to virtual visits was provided verbally after information was sent via Sykio or read to patient if Telnichart not available. PRESENT: Self Nova Salinas is a 60 year old year old female who presents for a BSM evaluation for insomnia, referred by [facility] Sleep Disorders Physician/YARDAGE CONTROL CLERK - Kristin Paige Mrs. Salinas has not been previously evaluated and treated by Behavioral Sleep Medicine at the [facility]. PMH: ACTIVE PROBLEM LIST Contact Dermatitis and Other Eczema, Due to Unspecified Cause Headache(784.0) Diaphragmatic Hernia Dyspepsia Diaphragmatic Hernia Without Obstruction Or Gangrene Gastroesophageal Reflux Disease External Hemorrhoid, Thrombosed Franki (Obstructive Sleep Apnea) CURRENT MEDICATIONS: Current Outpatient Medications Medication Sig - [facility] NASAL OINTMENT Use in the nose twice daily. - melatonin 3 mg tablet Take 1 tablet by mouth at bedtime as needed. - valACYclovir (VALTREX) 1 gram Take 1,000 mg by mouth once daily. - lactobacillus combination no.4 (PROBIOTIC) 3 billion cell cap Take 1 capsule by mouth once daily. - ZINC OXIDE TOPICAL Apply 1 application to affected area daily at bedtime. In both nasal cavities to maintain fissure. - CPAP Change Settings from 4 - 7.5 cm H2O, suitable mask per pt preference, chin strap, head gear, humidity, heated tubing (RENITA), lifetime supplies. G47.33 FRANKI - nasal ointment, [facility], oint Apply to affected area twice daily. (Patient not taking: Reported on 08/04/2020 ) - flaxseed oil-omega 3,6,9 1,300 mg-845 mg -117 mg-117 mg cap Take by mouth. - traZODone (DESYREL) 50 mg tablet Take 50 mg by mouth daily at bedtime. - busPIRone (BUSPAR) 5 mg tablet Take 10 mg by mouth twice daily. - magnesium oxide 400 mg cap Take by mouth as needed. - vitamin B complex (B-50 COMPLEX ORAL) Take by mouth once daily. - Multivitamins-Mineral s-Lutein (MULTIVITAMIN 50 PLUS) tab Take 1 tablet by mouth once daily. - Calcium Cmb #3-B1-Cplnjgwablm (CITRACAL D + THE MELT) 315-250-200 mg-unit-mg tab Take by mouth once daily. - hydrOXYzine HCl (ATARAX) 25 mg tablet Take 25 mg by mouth daily at bedtime. - sucralfate (CARAFATE) 1 gram tablet Take 4 times a day. Dissolve 1 tablet in 30cc water, stir and swallow. (Patient not taking: Reported on 06/21/2018 ) - irbesartan (AVAPRO) 150 mg ORAL tablet Take 150 mg by mouth once daily. - MUCINEX 600 MG TAB as necessary No current facility-administered medications for this visit. HISTORY OF SLEEP DIFFICULTIES When did the problem start? Past several years has been more reoccurring consistent problem Identifiable precipitating factors: FRANKI - waking up multiple times during the night Really bad last year prior to her diagnosis of FRANKI. She notes that her PAP machine has been a lifesaver and led to significant improvments in her sleep but not sleeping as well as she would like to Previously would be napping during the daytime, drinking excessive amounts of caffiene to help her focus and stay awake during the day. This is not longer an issue but current concerns tend to be difficulty with awakening in the middle of the night and at times taking several hours to fall back asleep. ? Started amitriptyline in June 2018 for sleep (was taking 30-60 min to fall asleep), switched to nortriptyline - both caused dry mouth. Stopped and didn't take anything for several months. Would take 2 hours to fall asleep. Started Trazodone 50mg in April 2019, and started Buspar 5mg by PCP as well for anxiety. Most recently recommended to take melatonin 3mg at bedtime and feels has been helpful with sleep maintenance. Parasomnias: no Narcolepsy: No Sleep Apnea: Sleep apnea type :?FRANKI,? Most Recent Apnea-Hypopnea Index (AHI):?43.2? 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 Dry mouth after awakening Total time awake after sleep onset: Few mins to Several hours It's only 3am, I have to get back to sleep s What happens when awake in middle of the night? (thoughts/behaviors) : worrying about getting back to sleep, worrying about life in general, work, parents, not feeling rested in AM Sleep YARDAGE CONTROL CLERK - stimulus control - tried implementing getting out of bed if not sleeping and reading and felt this may have been beneficial but notes that it was hard to force herself to get out of bed If waking up and struggling to fall back asleep may be up for several hours Nightmares? No Night eating? No End of Night/Morning: Final Wake Time: 7 AM Differences in sleep schedule on weekends/days off? NO MACARIO Insomnia Severity Index Total Score: 18 [15-21 = Clinical insomnia (moderate severity)] Insomnia Severity Index 09/02/2020 Score 18 DAYTIME IMPACT of Sleep Mood: Anxious and Frustrated Fatigue:yes Work/Academic Impact? Distracted at work Concentration/Memory Impact? Concentration/some memory impact Naps? does not take naps. Unintentional dozing? No PAST TREATMENT Current sleep medications/aids (Dose, manner used - at bedtime, nightly, prn): trazodone 50mg, melatonin 3mg Patient is interested in tapering sleep medications Past medications/sleep aids: Not Applicable Behavioral strategies or changes made to improve sleep? regular sleep schedule, no TV/other activities in bedroom and relaxing before bed, yoga, consistent sleep schedule Past trial of CBT-I? (Can ask about specific strategies including stimulus control, sleep restriction, get details of when and how long tried): No COMORBID PSYCH ISSUES/PSYCH HISTORY History of Comorbid Psychiatric Issues? Anxiety Disorder Treatment:Buspirone for anxiety Last year was very stressful year - remodeling, caregiving/health issues of her parents Did engage in counseling for approx 6 session last year Pt notes that she has been a worrier all her life. Parents told her as a child she was a worrier. Worry about things that are beyond her control and difficulty letting go of this worry Pt denied past/current Hx of Bipolar Disorder, manic episodes, or a/v hallucinations MERCEDES MERCEDES-7 Total Score: 15 [15-21 = Severe Anxiety] Pt current reports several symptoms of anxiety including feeling nervous, anxious, or on edge, perceived no control over worry, worrying about a wide range of things and difficulty relaxing MERCEDES - 7 SCORES 09/02/2020 MERCEDES-7 Score 15 PHQ PHQ-9 Score: 9 [5-9 = Mild Depression] not at all on item #9 PHQ-9 09/02/2020 Score 9 Last Hospitalization: None SUICIDE RISK ASSESSMENT: Suicidal Ideation: denies Suicide Attempt(s): Patient denies previous suicide attempts. Risk Factors: None Protective Factors: Effective and accessible clinical care, Restricted access to lethal means, Strong support system, Strong ties to medical/mental heatlh professionals, Skills in problem solving CURRENT STRESSORS/COPING Stressors: caretaking for parents with health issues - father early stages Alzheimers Coping: The patient reports the following coping strategies: distraction, staying busy and yoga SUBSTANCE USE HISTORY: Nicotine: None Caffeine: 1-2 days will have a cup of tea Pt previously was 3 cups of a tea throughout the day. Alcohol: No history of use or dependence 1-2 times a year Marijuana: No history of use or dependence Cocaine: No history of use or dependence Opioids: No history of use or dependence The patient was born and raised in [place]. 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 and resides with her in [place]. No children Mental Status Exam General/Sensorium: Alert AND interactive Orientation: AAOx3 Appearance: Appears stated age Eye contact: Appropriate Demeanor: Appropriately interactive Motor activity: Calm Speech: Articulate with appropriate rhythm and volume Affect: Appropriate Thought process: Within normal limits Associations: Normal Thought content: Appropriate Suicidal ideation: SI: no Plan: no Intent: no Homicidal ideation: HI: no Plan: no Intent: no Abnormal/psychotic thoughts: Absent Perceptions: She does not appear internally stimulated. Intelligence: Average Attention: Intact Memory: Short-term: Intact Long-term: Intact Language: Intact Fund of knowledge: Appropriate Insight: Good Judgment: Good SUMMARY IMPRESSION: Nova Salinas with a history of longstanding, chronic insomnia comorbid with FRANKI and anxiety Pt sleep charaterized by sleep maintenance issues currently treated with trazodone 50mg and melatonin 3mg as well as PAP therapy for FRANKI. Predisposing factors include gender, anxious tendencies, and advancing age. Initial triggers for sleep disturbance are unclear but has likely been exacerbated by anxious tendencies and stress. Numerous perpetuating factors (both psychophysiologic and behavioral) maintain sleep disturbance; these include poor sleep hygiene, lack of stimulus control, stress/anxiety, and stress/sleep -related cognitions. She may benefit from CBT-I trial focusing on stimulus control, relaxation training, and cognitive strategies to challenge beliefs about sleep. Patient expressed strong motivation to engage in treatment and has already implemented numerous behavioral changes in the past month; prognosis is good. DIAGNOSIS: (Provisional) Chronic Insomnia Anxiety FRANKI GOALS/OBJECTIVES/INTE RVENTIONS: 1. Patient was provided psychoeducation on Cognitive Behavioral Therapy for insomnia including sleep restriction, sleep hygiene, stimulus control, and challenging cognitions related to sleep. 2. Patient was instructed to keep sleep logs, also tracking medication use and any additional factors that may have positively or negatively impacted sleep. Patient will keep sleep logs for the next several weeks to gain a better understanding of the exact nature of her sleep issues and further tailor CBT-I treatment to those concerns. 3. Reviewed Sleep Hygiene including stimulus control (into bed only when sleepy, out of bed at a fixed wake time, out of bed if unable to sleep, use bed for sleep only, avoid naps). 4. Will begin CBT-Initiate virutal group and follow up with this provider individually after initial session Patient scheduled for follow up in 2 weeks. Dannielle Palm Psy.D., [facility], Psychologist ([place] License [id number]) [facility] Vital Signs Date Time Vital Sign Value Performing Clinician Louise michele 02-17-2025 11:25-0400 Body mass index (BMI) [Ratio] 25.09 kg/m2 Ainsley Ritter APRN.CNP Work Phone: [facility] 02-17-2025 11:25-0400 Body weight 68.4 kg Ainsley Ritter APRN.CNP Work Phone: [facility] 02-17-2025 11:25-0400 Diastolic blood pressure 76 mm[Hg] Ainsley Ritter APRN.CNP Work Phone: [facility] 02-17-2025 11:25-0400 Heart rate 74 /min Ainsley Ritter APRN.CNP Work Phone: [facility] 02-17-2025 11:25-0400 Respiratory rate 18 /min Ainsley Ritter APRN.CNP Work Phone: [facility] 02-17-2025 11:25-0400 SaO2% (BldA) [Mass fraction] 97 % Ainsley Riya DRY STARCH SUPERVISOR.SOUND EFFECTS MANAGER Work Phone: [facility] 02-17-2025 11:25-0400 Systolic blood pressure 128 mm[Hg] Ainsley Riya DRY STARCH SUPERVISOR.SOUND EFFECTS MANAGER Work Phone: [facility] 03-04-2024 07:59-0400 Body weight 65.14 kg Ainsley Riya DRY STARCH SUPERVISOR.SOUND EFFECTS MANAGER Work Phone: [facility] 03-04-2024 07:59-0400 Diastolic blood pressure 64 mm[Hg] Ainsley Riya DRY STARCH SUPERVISOR.SOUND EFFECTS MANAGER Work Phone: [facility] 03-04-2024 07:59-0400 Heart rate 86 /min Ainsley Riya DRY STARCH SUPERVISOR.SOUND EFFECTS MANAGER Work Phone: [facility] 03-04-2024 07:59-0400 Respiratory rate 16 /min Ainsley Riya DRY STARCH SUPERVISOR.SOUND EFFECTS MANAGER Work Phone: [facility] 03-04-2024 07:59-0400 SaO2% (BldA) [Mass fraction] 97 % Ainsley Riya DRY STARCH SUPERVISOR.SOUND EFFECTS MANAGER Work Phone: [facility] 03-04-2024 07:59-0400 Systolic blood pressure 122 mm[Hg] Ainsley Riya DRY STARCH SUPERVISOR.SOUND EFFECTS MANAGER Work Phone: [facility] 12-11-2023 11:07-0500 Body weight 65.77 kg Martir Hong Jr., MD Work Phone: [facility] 12-11-2023 11:07-0500 Diastolic blood pressure 66 mm[Hg] Martir Hong Jr., MD Work Phone: [facility] 12-11-2023 11:07-0500 Heart rate 79 /min Martir Hong Jr., MD Work Phone: [facility] 12-11-2023 11:07-0500 Respiratory rate 16 /min Martir Hong Jr., MD Work Phone: [facility] 12-11-2023 11:07-0500 SaO2% (BldA) [Mass fraction] 98 % Martir Hong Jr., MD Work Phone: [facility] 12-11-2023 11:07-0500 Systolic blood pressure 118 mm[Hg] Martir Hong Jr., MD Work Phone: [facility] Encounters Encounter Date Encounter Type Care Provider Facility Start: 02-17-2025 End: 02-17-2025 Telephone encounter Ainsley Ritter APRN.SOUND EFFECTS MANAGER Work Phone: Neurology Start: 02-17-2025 End: 02-17-2025 Patient encounter procedure Ainsley Ritter DRY STARCH SUPERVISOR.SOUND EFFECTS MANAGER Work Phone: Neurology Comment on above: FRANKI on CPAP (Primary Dx) Start: 02-17-2025 End: 02-17-2025 ambulatory AINSLEY RIYA Facility:[facility] Start: 02-14-2025 End: 02-17-2025 Telephone encounter Ainsley Ritter APRN.SOUND EFFECTS MANAGER Work Phone: Neurology Comment on above: PAP Therapy Follow U p Start: 01-24-2025 End: 01-24-2025 ambulatory [facility] Start: 12-21-2024 End: 12-21-2024 ambulatory [facility] Facility:[facility] Start: 12-12-2024 ambulatory [facility] Facility:[facility] Start: 05-30-2024 End: 05-30-2024 ambulatory [facility] Facility:[facility] Start: 04-23-2024 End: 04-23-2024 ambulatory [facility] Facility:[facility] Start: 03-04-2024 End: 03-04-2024 Patient encounter procedure Ainsley Ritter DRY STARCH SUPERVISOR.SOUND EFFECTS MANAGER Work Phone: Neurology Comment on above: FRANKI (obstructive sle ep apnea) (Primary Dx) Start: 03-04-2024 End: 03-04-2024 ambulatory AINSLEY RIYA Facility:[facility] Start: 02-26-2024 Telephone encounter Ainsley pelletier DRY STARCH SUPERVISOR.SOUND EFFECTS MANAGER Work Phone: Neurology Comment on above: PAP Therapy Follow U p (01/27/24 - 02/25/24 ) Start: 12-12-2023 Telephone encounter Martir Hong MD Work Phone: Neurology Comment on above: Orders Start: 12-11-2023 End: 12-11-2023 Patient encounter procedure Martir Hong MD Work Phone: Neurology Comment on above: Obstructive sleep ap arvin (adult) (pediatric) (Primary Dx); FRANKI (obstructive sleep apnea); Difficulty with CPAP use Start: 06-14-2023 Telephone encounter Kristin Patel APRN.SOUND EFFECTS MANAGER Work Phone: Neurology Comment on above: Rejected CMN Start: 12-03-2022 End: 12-03-2022 ambulatory [facility] Work Phone: Start: 12-03-2022 End: 12-03-2022 Patient encounter procedure [facility] Start: 04-16-2022 End: 04-16-2022 Patient encounter procedure [facility] Procedures Date Procedure Procedure Detail Performing Clinician Start: 12-26-2011 Colonoscopy Kristin Patel APRN.SOUND EFFECTS MANAGER Work Phone: Start: 09-13-2011 Mammography Kristin Patel APRN.SOUND EFFECTS MANAGER Work Phone: Start: 04-13-2011 Lipid 1996 panel - S yves or Plasma Martir Hong Jr., MD Work Phone: Plan of Treatment Date Care Activity Detail Author Start: 2033 RSV Vaccine (1 - 1-d ose 75+ series) RSV Vaccine (1 - 1-dose 75+ series) [facility] Start: 05-09-2026 Screening for malign ant neoplasm of colon [facility] Start: 11-13-2024 Advance Directive Discussion Advance Directive Discussion [facility] Start: 07-14-2024 Covid-19 Vaccine ( season) Covid-19 Vaccine ( season) [facility] Start: 07-14-2024 Influenza vaccination C [facility] Start: 01-17-2024 DIABETES SCREEN DIABETES SCREEN [facility] Start: 01-17-2024 Diabetes Screening Diabetes Screenin g [facility] Start: 11-13-2023 Advance Directive Discussion Advance Directive Discussion [facility] Start: 11-13-2023 Behavioral Health Screening Behavioral Health Screening [facility] Start: 11-13-2023 Depression Assessment Depression Ass essment [facility] Start: 09-13-2023 Urine microalbumin profile DTa P,Tdap,Td Vaccine (2 - Td or Tdap) [facility] Start: 07-14-2023 Covid-19 Vaccine () Covid-19 Vaccine () [facility] Start: 07-14-2023 Influenza vaccination C [facility] Start: 2023 Pneumococcal Vaccine : 65+ (2 of 2 - PCV) Pneumococcal Vaccine: 65+ (2 of 2 - PCV) [facility] Start: 2023 Screening for osteoporosis Bone Dens ity Screening [facility] Start: 11-13-2022 DEPRESSION ASSESSMENT DEPRESSION ASS ESSMENT [facility] Start: 04-14-2021 COVID-19 VACCINE (3 - Moderna series) COVID-19 VACCINE (3 - Moderna series) [facility] Start: 2018 RSV Vaccine (1 - 1-d ose 60+ series) RSV Vaccine (1 - 1-dose 60+ series) [facility] Start: 04-13-2016 Lipid panel Lipid Screening [facility] Start: 04-13-2016 LIPID SCREEN LIPID SCREEN [facility] Start: 03-13-2016 PAP TESTING PAP TESTING [facility] Start: 12-26-2012 Colonoscopy COLONOSCOPY [facility] Start: 12-26-2012 COLORECTAL CANCER SCREENING COLORECTAL CANCER SCREENING [facility] Start: 12-26-2012 Screening for malign ant neoplasm of colon [facility] Start: 09-13-2012 Mammography MAMMOGRAM [facility] Start: 09-13-2012 Screening for malign ant neoplasm of breast Mammogram Screening [facility] Start: 2008 Pneumococcal Vaccine : 50+ (2 of 2 - PCV) Pneumococcal Vaccine: 50+ (2 of 2 - PCV) [facility] Start: 2008 SHINGRIX VACCINE (1 of 2) SHINGRIX V ACCINE (1 of 2) [facility] Start: 2003 COLOGUARD (FIT-DNA) COLOGUARD (FIT-D NA) [facility] Start: [address] COLONOGRAPHY [facility] Start: 2003 FECAL OCCULT BLOOD FECAL OCCULT BLOO D [facility] Start: 2003 Screening for malign ant neoplasm of colon [facility] Start: 2003 SIGMOIDOSCOPY SIGMOIDOSCOPY [facility] Start: 1988 HPV TESTING HPV TESTING [facility] Start: 1977 Urine microalbumin profile DTAP,TDAP ,TD (1 - Tdap) [facility] Start: 1976 Anxiety Screening Anxiety Screening [facility] Start: 1976 Depression Screening Depression Scre ening [facility] Start: 1976 HEPATITIS C SCREENING HEPATITIS C [facility] Start: 1976 Hepatitis C screening Hepatitis C [facility] Start: 1976 HIV SCREENING HIV SCREENING [facility] Start: 1976 HIV screening HIV Screening [facility] Immunizations Immunization Date Immunization Notes Care Provider [facility] 08-26-2020 influenza virus vacc ine, unspecified formulation Martir Hong Jr., MD Work Phone: [facility] 08-13-2011 influenza virus vacc ine, unspecified formulation Kristin Paige APRN.[facility] Work Phone: [facility] Work Phone: 04-13-2006 pneumococcal polysaccharide vaccine, 23 valent Kristin Paige APRN.[facility] Work Phone: [facility] Work Phone: Payers Date Payer Category Payer Self-pay [id number] 2024 Unknown [id number] 2019 Private Health Insurance [employer] GENERIC [id number] 2019 Unknown [id number] 2015 Unknown [id number] 1960 Unknown [id number] Unknown [id number] Unknown [id number] Unknown [id number] Social History Date Type Detail Facility Tobacco smoking stat [facility] Unknown if ever smoked [facility] Work Phone: Start: 1960 Sex Assigned At Female [facility] Start: 05-08-2018 End: 12-11-2023 Tobacco smoking status MDIS Never smoked tobacco [facility] Start: 05-08-2018 End: 12-11-2023 Tobacco use and exposure Smokeless tobacco non-user [facility] Start: 09-23-2021 End: 02-17-2025 Alcohol intake Current drinker of alcohol (finding) [facility] Start: 1960 Sex Assigned At Not on file [facility] Start: 09-23-2020 End: 12-11-2023 Gender identity Not on file [facility] Start: 09-23-2020 End: 12-11-2023 History of Social function [facility] How often to you hav e a drink containing alcohol? Monthly or less [facility] How many standard drinks containing alcohol do you have on a typical day? 1 or 2 [facility] How often do you hav e 6 or more drinks on 1 occasion? Never [facility] Adult Depression Screening Assessment 0 [facility] Clinical Notes 06-14-2023 to 02-17-2025 Telephone Encounter - Shashank uNnez LPN - 02/17/2025 1:18 PM EDTTelephone Encounter - Shashank Nunez LPN - 02/17/2025 1:18 PM Ainsley Hardy APRN.CNP - 02/17/2025 11:30 AM EDT Note Date & Type Note Facility 02-17-2025 Telephone encount er Note Office note faxed. Shashank Nunez LPN [facility] 02-17-2025 Miscellaneous Notes Formattin g of this note might be different from the original. Office note faxed. Shashank Nunez LPN Please fax my note to PCP Ainsley Ritter APRN.CNP documented in this encounter [facility] 02-17-2025 Telephone encount er Note Please fax my note to PCP Ainsley Ritter APRN.CNP [facility] 02-17-2025 History of Presen t illness Narrative Images from the original note were not included. [facility] Follow up/ Established patient visit Date of last visit : 03/04/2024 The following Impression/Plan was copied and pasted from the patient's last [facility] visit on 03/04/24: IMPRESSION: Franki (obstructive sleep apnea) (primary encounter diagnosis) Nova Salinas is a 63 year old female with severe FRANKI. Changing the pressure range did resolve the noise and has helped her to awake less often in the night. PMH of GERD, SMITH. --Patient is compliant with PAP therapy and reports subjective benefits from treatment --We reviewed PAP compliance report; AHI is normalized PLAN: - Continue Auto CPAP at 5-9 cmH2O. - Remember to clean your mask and equipment regularly, as directed. - You should be eligible for new supplies approximately every 3-6 months, depending on your insurance coverage. Contact your [employer] (DME) company for new supplies as needed. - Follow up in 12 months Ainsley Ritter APRN.SOUND EFFECTS MANAGER Here for follow up for annual visit for severe FRANKI on APAP, dislikes CPAP but is compliant Only has faint sense of taste and smell since 01/2024. Recent testing by tester equipment showed she has no allergies. Gets mask lines despite everything she has tried, includiing padding ENT told her not to use hybrid FFM, pressure on nose called bleeding If she sleeps supine then she gets mask leak as well as obstruction She needs to tape her mouth to prevent dry mouth even with FFM She tried AirTouch F20 memory foam w/o benefit SLEEP APNEA Sleep apnea type : FRANKI, Most Recent Apnea-Hypopnea Index (AHI): 43 Treatment : PAP therapy DME: [facility] History: Uses AutoPAP for 8 hours per night, 7 nights per week. Current PAP settin-9 cm H2O. Difficulties with AutoPAP: None except nuisances above Reviewed objective PAP compliance data: Uses every night for avg 8 hrs AHI 5.1 P90 9 cmH2O Mask type: full face mask Mask issues: air leak, mask lines There is a perceived benefit by the patient: otherwise wakes with obstructions, father had untreated FRANKI and dementia SLEEP HYGIENE QUESTIONS: Bedtime : 1030 pm Wake up Time : 7 am Time it takes to fall sleep : not problematic initially Number of times patient wakes up per night : around 3 am , can be difficult to fall back asleep Reason (s) why patient wakes up during the night : unknown Estimated total sleep time ( in a 24 hour period of time) : 6 Naps : No PATIENT-ENTERED QUESTIONNAIRE SLEEP SCORES 03/03/2024 Sleep Questions Reason for visit: Sleep apnea Difficulty falling or staying asleep or poor sleep quality On average, hours of sleep in 24 hours: 6 Average hours of CPAP per night: 8 Percent of nights CPAP used at least 4 hours: 100 Accidents or near accidents due to drowsy drivin Multiple values from one day are sorted in reverse-chronological order 07/05/2021 08/22/2021 03/03/2024 Willard Sleepiness Scale Score 2 (No clinically significant daytime sleepiness) 4 (No clinically significant daytime sleepiness) 2 (No clinically significant daytime sleepiness) 07/05/2021 08/22/2021 03/03/2024 PROMIS CAT Sleep Disturbance PROMIS Sleep Disturbance T-Score 49 (within normal limits) 56 (mild) 49 (within normal limits) PROMIS Sleep Disturbance Percentile 54 27 54 09/02/2020 11/02/2020 08/22/2021 Insomnia Severity Index Score 18 8 11 07/05/2021 08/22/2021 03/03/2024 PHQ-9 Score 5 4 2 07/28/2021 11/07/2023 03/03/2024 PROMIS Global Health - (T-Scores - the mean of general population = 50. Five points is a clinically meaningful difference.) Physical T-Score 47.7 47.7 57.7 50.8 Mental T-Score 45.8 45.8 53.3 43.5 ALLERGIES Allergen Reactions Environmental Aller* Grass, Trees, Weeds, Molds, Dust and Dust Mites, Dogs, Cats, Horses, Cattle, CURRENT MEDICATIONS: Magnesium Citrate 150mg (Pure Encapsulations) Take 4 capsules daily. lactobacillus combination no.4 (PROBIOTIC) 3 billion cell cap Take 1 capsule by mouth once daily. flaxseed oil-omega 3,6,9 1,300 mg-845 mg -117 mg-117 mg cap Take by mouth. Myemadilqxaqa-Ihatqfcj-Gjlfid (MULTIVITAMIN 50 PLUS) tab Take 1 tablet by mouth once daily. Calcium Cmb #9-F8-Krngfmnraxt (CITRACAL D + HEART HEALTH) 315-250-200 mg-unit-mg tab Take by mouth once daily. irbesartan (AVAPRO) 150 mg ORAL tablet Take 150 mg by mouth once daily. PHYSICAL EXAMINATION: Vital Signs: BP 128/76 Pulse 74 Resp 18 Wt 68.4 kg (150 lb 12.8 oz) SpO2 97% BMI 25.09 kg/m PHYSICAL EXAM: General appearance: pleasant, NAD Mental status: alert and oriented, able to provide own history Constitutional: WNL Skin: No visible rashes on exposed skin Neuro: No focal deficits observed, no tremors IMPRESSION: Franki on cpap (primary encounter diagnosis) Nova Salinas is a 64 year old female with severe FRANKI (AHI 43 using 3% scoring in 2019), compliance with APAP but really dislikes it, primarily compliant because her father had untreated FRANKI and dementia. PMH: almost no taste or smell since 01/2024, migraines --Patient is compliant with PAP therapy and reports subjective benefits from treatment --We reviewed PAP compliance report; AHI is almost normalized (5.1) PLAN: - Continue Auto CPAP, will change pressure range from 5-9 to 5-10 cmH2O to cover any REM-related events that might be waking her in the night. - Remember to clean your mask and equipment regularly, as directed. - You should be eligible for new supplies approximately every 3-6 months, depending on your insurance coverage. Contact your Durable Medical Equipment (DME) company for new supplies as needed. - Follow up in 12 months - Discussed will need to update sleep study when she goes on Medicare, using 4% scoring Ainsley Ritter APRN.CNP documented in this encounter [facility] 02-17-2025 Note HNO ID: [id number] Author: AINSLEY RITTER APRN.CNP Service: ? Author Type: Nurse Practitioner Type: Progress Notes Filed: 02/17/2025 12:24 Note Text: [facility] Follow up/ Established patient visit Date of last visit : 03/04/2024 The following Impression/Plan was copied and pasted from the patient's last [facility] visit on 03/04/24: IMPRESSION: Franki (obstructive sleep apnea) (primary encounter diagnosis) Nova Salinas is a 63 year old female with severe FRANKI. Changing the pressure range did resolve the noise and has helped her to awake less often in the night. PMH of GERD, SMITH. --Patient is compliant with PAP therapy and reports subjective benefits from treatment --We reviewed PAP compliance report; AHI is normalized PLAN: - Continue Auto CPAP at 5-9 cmH2O. - Remember to clean your mask and equipment regularly, as directed. - You should be eligible for new supplies approximately every 3-6 months, depending on your insurance coverage. Contact your [employer] (DME) company for new supplies as needed. - Follow up in 12 months Ainsley Ritter APRN.SOUND EFFECTS MANAGER Here for follow up for annual visit for severe FRANKI on APAP, dislikes CPAP but is compliant Only has faint sense of taste and smell since 01/2024. Recent testing by tester equipment showed she has no allergies. Gets mask lines despite everything she has tried, includiing padding ENT told her not to use hybrid FFM, pressure on nose called bleeding If she sleeps supine then she gets mask leak as well as obstruction She needs to tape her mouth to prevent dry mouth even with FFM She tried AirTouch F20 memory foam w/o benefit SLEEP APNEA Sleep apnea type : FRANKI, Most Recent Apnea-Hypopnea Index (AHI): 43 Treatment : PAP therapy DME: [facility] History: Uses AutoPAP for 8 hours per night, 7 nights per week. Current PAP settin-9 cm H2O. Difficulties with AutoPAP: None except nuisances above Reviewed objective PAP compliance data: Uses every night for avg 8 hrs AHI 5.1 P90 9 cmH2O Mask type: full face mask Mask issues: air leak, mask lines There is a perceived benefit by the patient: otherwise wakes with obstructions, father had untreated FRANKI and dementia SLEEP HYGIENE QUESTIONS: Bedtime : 1030 pm Wake up Time : 7 am Time it takes to fall sleep : not problematic initially Number of times patient wakes up per night : around 3 am , can be difficult to fall back asleep Reason (s) why patient wakes up during the night : unknown Estimated total sleep time ( in a 24 hour period of time) : 6 Naps : No PATIENT-ENTERED QUESTIONNAIRE SLEEP SCORES 03/03/2024 Sleep Questions Reason for visit: Sleep apnea Difficulty falling or staying asleep or poor sleep quality On average, hours of sleep in 24 hours: 6 Average hours of CPAP per night: 8 Percent of nights CPAP used at least 4 hours: 100 Accidents or near accidents due to drowsy drivin Multiple values from one day are sorted in reverse-chronological order 07/05/2021 08/22/2021 03/03/2024 Willard Sleepiness Scale Score 2 (No clinically significant daytime sleepiness) 4 (No clinically significant daytime sleepiness) 2 (No clinically significant daytime sleepiness) 07/05/2021 08/22/2021 03/03/2024 PROMIS CAT Sleep Disturbance PROMIS Sleep Disturbance T-Score 49 (within normal limits) 56 (mild) 49 (within normal limits) PROMIS Sleep Disturbance Percentile 54 27 54 09/02/2020 11/02/2020 08/22/2021 Insomnia Severity Index Score 18 8 11 07/05/2021 08/22/2021 03/03/2024 PHQ-9 Score 5 4 2 07/28/2021 11/07/2023 03/03/2024 PROMIS Global Health - (T-Scores - the mean of general population = 50. Five points is a clinically meaningful difference.) Physical T-Score 47.7 47.7 57.7 50.8 Mental T-Score 45.8 45.8 53.3 43.5 ALLERGIES Allergen Reactions Environmental Aller* Grass, Trees, Weeds, Molds, Dust and Dust Mites, Dogs, Cats, Horses, Cattle, CURRENT MEDICATIONS: Magnesium Citrate 150mg (Pure Encapsulations) Take 4 capsules daily. lactobacillus combination no.4 (PROBIOTIC) 3 billion cell cap Take 1 capsule by mouth once daily. flaxseed oil-omega 3,6,9 1,300 mg-845 mg -117 mg-117 mg cap Take by mouth. Qybyqoxkmumwl-Dbyzjsnc-Inghcp (MULTIVITAMIN 50 PLUS) tab Take 1 tablet by mouth once daily. Calcium Cmb #2-S8-Zmtaizmrkmd (CITRACAL D + HEART HEALTH) 315-250-200 mg-unit-mg tab Take by mouth once daily. irbesartan (AVAPRO) 150 mg ORAL tablet Take 150 mg by mouth once daily. PHYSICAL EXAMINATION: Vital Signs: BP 128/76 Pulse 74 Resp 18 Wt 68.4 kg (150 lb 12.8 oz) SpO2 97% BMI 25.09 kg/m? PHYSICAL EXAM: General appearance: pleasant, NAD Mental status: alert and oriented, able to provide own history Constitutional: WNL Skin: No visible rashes on exposed skin (more content not included)... [facility] 02-14-2025 Telephone encount er Note Please send 30 day download for upcoming appointment. Shashank Nunez LPN [facility] 02-14-2025 Miscellaneous Notes Formattin g of this note might be different from the original. Please send 30 day download for upcoming appointment. Shashank Nunez LPN documented in this encounter [facility] 01-24-2025 Note Nova is a 64 y.o. f emale who presents to our office today for re-evaluation. I did see her once on 04/23/15 for an allergy evaluation due to a history of migraine headaches. She is followed by Dr. Stephens and Mrs. Salinas has a history of migraine and sinus headaches. She was taking Benadryl 50mg at bedtime and she also used a Scopolamine patch at times and she was previously allergy tested and she was allergic to everything years ago and she did not do immunotherapy. At baseline, she notices increased headache with nonallergic triggers of fumes, perfumes, cigarette smoke, changes in weather and changes in temperature. She has a little bit of nasal congestion at baseline and has some degree of nasal drainage and sinus pressure. Previously, she tried Nasonex and it was somewhat helpful but was associated with some epistaxis and she does not tolerate Sudafed. Claritin and Meredith and Singulair were equivocal and Prednisone was taken for an injury but not for nasal symptoms and her history is unremarkable for asthma, wheezing or lower respiratory illnesses. Regarding foods, she reports intolerance to raw onion and raw apple and denies any issues with food and testing at her initial visit was negative and I recommended continuing Benadryl and trying Atrovent Nasal spray 0.03% and now she avoids fragrances and this has been helpful. Then a year ago she had an illness and she does not have much smell and taste and this has been permanent and she presents for further evaluation. -She is now seeing Dr. Crispin Ortega. She says on 01/30/24 she lost smell and taste a CT scan 05/30/24 was negative and she did alkalol and nasal rinse and then she tested + for COVID 11/13/24 and on 11/15/24 she started Singulair and then stopped this. On 06/10/20 she was seen by a Volumetric Weigher for ROSARIO 1:1280 and then 12/21/23 ROSARIO was 1:640. Nasonex is associated with epistaxis and right now she is using a CPAP and this is humidified and the uses Zinc oxide for her nose due to nasal irritation. Of note, she is taking Montelukast and she has some vivid dreams with this. Environmental Survey/Social History: Lives with . 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 Smoking/Alcohol/Drug Use or Exposure: No Recreational Activities/Sports: No Review of Systems/Past Medical History: Constitutional: denies fever, chills, weight loss. Eyes: denies vision changes, color blindness. Ears, nose throat and mouth: see narrative above. Respiratory: denies wheezing, cough or chest tightness/ see above narrative. Gastrointestinal: denies diarrhea, constipation, emesis. Genitourinary: denies dysuria or urine odor. Skin/integumentary: denies nail changes or other rash. Neurologic: denies seizures, weakness or speech problems. Hematologic/lymphatic: denies pallor. Allergic/Immunologic: see narrative above. *Regarding bee stings, no issues (she has been stung). Past Medical History: Diagnosis Date Migraine No issues with glaucoma. History reviewed. No pertinent surgical history. Current Outpatient Medications Medication Sig Dispense Refill montelukast (SINGULAIR) 10 MG tablet Take 1 Tablet (10 mg) by mouth every evening irbesartan (AVAPRO) 150 MG tablet Take 150 mg by mouth daily Probiotic Product (PROBIOTIC DAILY PO) Take by mouth daily. scopolamine (SCOPOLAMINE) 1 MG/3DAYS patch Place onto the skin as needed. Cholecalciferol (VITAMIN D) 400 UNITS tablet Take 400 Units by mouth daily. (Patient not taking: Reported on 01/24/2025) [place]-3 Fatty Acids (FISH OIL PO) Take by mouth daily. (Patient not taking: Reported on 01/24/2025) B Cwzauld-Rdicju-YW (VITAMIN B50 COMPLEX PO) Take by mouth daily. (Patient not taking: Reported on 01/24/2025) DiphenhydrAMINE HCl (BENADRYL ALLERGY PO) Take 25 mg by mouth At bedtime. (Patient not taking: Reported on 01/24/2025) promethazine (PROMETHEGAN) [address] 25 mg rectally every 6 hours as needed for Nausea. (Patient not taking: Reported on 01/24/2025) Pseudoephedrine-Guaifenesin (MUCINEX D) 60-600 MG TB12 Take 600 mg by mouth as needed. (Patient not taking: Reported on 01/24/2025) Dermatological Products, Misc. (EPICERAM EX) Apply to affected area as needed. (Patient not taking: Reported on 01/24/2025) Clocortolone Pivalate (CLODERM EX) Apply to affected area as needed. (Patient not taking: Reported on 01/24/2025) ipratropium (ATROVENT) 0.03 % nasal spray 2 Sprays by Each Nare route 3 times daily. (Patient not taking: Reported on 01/24/2025) 30 mL 10 No current facility-administered medications for this visit. -She takes a lot of vitamin and supplements from Dr. Bal Family History Problem Relation Age of Onset Environmental Allergies Father Food Allergy Father Environmental Allergies Brother Allergies: NKDA ( (more content not included)... [facility] 03-04-2024 History of Presen t illness Narrative Images from the original note were not included. [facility] Follow up/ Established patient visit Date of last visit : 12/11/23 The following Impression/Plan was copied and pasted from the patient's last [facility] visit on 12/11/23: ASSESSMENT/PLAN: 1. Obstructive sleep apnea (adult) (pediatric) - ICD9: 327.23, ICD10: G47.33 (primary diagnosis) Patient with PAP complaints as above, of which etiologies are uncertain. Question if not getting adequate pressure through the night - while overall AHI is normalized, possible that during periods of the night (I.e. REM sleep or if supine) needs higher AHI. Possible that not getting up to that higher pressure is resulting in abnormal sounds. Otherwise history would suggest an overall perceived benefit. Subjective and objective PAP compliance confirmed. In attempt to troubleshoot complaints will change patient to Auto PAP at setting of 5-9 cmH2O to allow for higher pressure if needed, and likewise lower pressure, if not having respiratory events. Uncertain if this will impact noise that patient is hearing, but will ask her to inform us of whether changes in noise noted over the next week. [facility] to [facility] Discussed with patient: the physiology of OSAS, medical conditions associated with OSAS (DM, HTN, CAD, Depression, Stroke, Headache...) and treatment options beside PAP. Advised patient to avoid activities that could harm self or others when tired/sleepy, including driving and/or operating heavy machinery. Discussed importance of good sleep hygiene. Martir Hong MD Here for follow up for FRANKI, pressure changed at last visit to see if that would help with noisy machine. Pressure setting is now 5-9 cmH2O, residual AHI is similar at 4.7. The noise did resolve. She reports she is waking less since the pressure change, and goes back to sleep more quickly. Dislikes PAP therapy but recognizes its importance, never sleeps w/o it. Her mom is hospitalized in [place] so she has been traveling back and forth. SLEEP APNEA Sleep apnea type : FRANKI, Most Recent Apnea-Hypopnea Index (AHI): 43 Treatment : PAP therapy DME: [facility] History: Current PAP settin-9 cm H2O. Reviewed objective PAP compliance data: Mask type: full face mask Uses eye ointment, zinc oxide in nose and tapes mouth shut in order to deal with dry eyes and mouth There is a perceived benefit by the patient: better sleep PATIENT-ENTERED QUESTIONNAIRE SLEEP SCORES 03/03/2024 Sleep Questions Reason for visit: Sleep apnea Difficulty falling or staying asleep or poor sleep quality On average, hours of sleep in 24 hours: 6 Average hours of CPAP per night: 8 Percent of nights CPAP used at least 4 hours: 100 Accidents or near accidents due to drowsy drivin 07/05/2021 08/22/2021 03/03/2024 Willard Sleepiness Scale Score 2 (No daytime sleepiness) 4 (No daytime sleepiness) 2 (No daytime sleepiness) 07/05/2021 08/22/2021 03/03/2024 PROMIS CAT Sleep Disturbance PROMIS Sleep Disturbance T-Score 49 (within normal limits) 56 (mild) 49 (within normal limits) PROMIS Sleep Disturbance Percentile 54 27 54 09/02/2020 11/02/2020 08/22/2021 Insomnia Severity Index Score 18 8 11 07/05/2021 08/22/2021 03/03/2024 PHQ-9 Score 5 4 2 07/28/2021 11/07/2023 03/03/2024 PROMIS Global Health - (T-Scores - the mean of general population = 50. Five points is a clinically meaningful difference.) Physical T-Score 47.7 47.7 57.7 50.8 Mental T-Score 45.8 45.8 53.3 43.5 ALLERGIES Allergen Reactions Environmental Aller* Grass, Trees, Weeds, Molds, Dust and Dust Mites, Dogs, Cats, Horses, Cattle, CURRENT MEDICATIONS: Magnesium Citrate 150mg (Pure Encapsulations) Take 4 capsules daily. lactobacillus combination no.4 (PROBIOTIC) 3 billion cell cap Take 1 capsule by mouth once daily. flaxseed oil-omega 3,6,9 1,300 mg-845 mg -117 mg-117 mg cap Take by mouth. Dzybiubzajcyf-Dxxspejt-Libprr (MULTIVITAMIN 50 PLUS) tab Take 1 tablet by mouth once daily. Calcium Cmb #9-W2-Pvblidvakfs (CITRACAL D + HEART HEALTH) 315-250-200 mg-unit-mg tab Take by mouth once daily. irbesartan (AVAPRO) 150 mg ORAL tablet Take 150 mg by mouth once daily. Thyrosol (Metagenics) Take 1 tablet by mouth twice daily with meals. busPIRone (BUSPAR) 5 mg tablet Take 1 tablet by mouth twice daily. Meriva-SF (Riya) Take 2 capsules by mouth twice daily. PHYSICAL EXAMINATION: Vital Signs: BP 122/64 Pulse 86 Resp 16 Wt 65.1 kg (143 lb 9.6 oz) SpO2 97% BMI 23.90 kg/m PHYSICAL EXAM: General appearance: pleasant, NAD Mental status: alert and oriented, able to provide own history Constitutional: WNL Skin: No visible rashes on exposed skin Neuro: No focal deficits observed, no tremors IMPRESSION: Rfanki (obstructive sleep apnea) (primary encounter diagnosis) Nova Salinas is a 63 year old female with severe FRANKI. Changing the pressure range did resolve the noise and has helped her to awake less often in the night. PMH of GERD, SMITH. --Patient is compliant with PAP therapy and reports subjective benefits from treatment --We reviewed PAP compliance report; AHI is normalized PLAN: - Continue Auto CPAP at 5-9 cmH2O. - Remember to clean your mask and equipment regularly, as directed. - You should be eligible for new supplies approximately every 3-6 months, depending on your insurance coverage. Contact your Durable Medical Equipment (DME) company for new supplies as needed. - Follow up in 12 months Ainsley Ritter APRN.CNP documented in this encounter [facility] 03-04-2024 Note HNO ID: [id number] Author: AINSLEY RITTER APRN.CNP Service: ? Author Type: Nurse Practitioner Type: Progress Notes Filed: 03/04/2024 08:32 Note Text: [facility] [facility] Follow up/ Established patient visit Date of last visit : 12/11/23 The following Impression/Plan was copied and pasted from the patient's last [facility] Disorders Center visit on 12/11/23: ASSESSMENT/PLAN: 1. Obstructive sleep apnea (adult) (pediatric) - ICD9: 327.23, ICD10: G47.33 (primary diagnosis) Patient with PAP complaints as above, of which etiologies are uncertain. Question if not getting adequate pressure through the night - while overall AHI is normalized, possible that during periods of the night (I.e. REM sleep or if supine) needs higher AHI. Possible that not getting up to that higher pressure is resulting in abnormal sounds. Otherwise history would suggest an overall perceived benefit. Subjective and objective PAP compliance confirmed. In attempt to troubleshoot complaints will change patient to Auto PAP at setting of 5-9 cmH2O to allow for higher pressure if needed, and likewise lower pressure, if not having respiratory events. Uncertain if this will impact noise that patient is hearing, but will ask her to inform us of whether changes in noise noted over the next week. Rx sent to [facility] ([facility]). Discussed with patient: the physiology of OSAS, medical conditions associated with OSAS (DM, HTN, CAD, Depression, Stroke, Headache...) and treatment options beside PAP. Advised patient to avoid activities that could harm self or others when tired/sleepy, including driving and/or operating heavy machinery. Discussed importance of good sleep hygiene. Martir Hong MD Here for follow up for FRANKI, pressure changed at last visit to see if that would help with noisy machine. Pressure setting is now 5-9 cmH2O, residual AHI is similar at 4.7. The noise did resolve. She reports she is waking less since the pressure change, and goes back to sleep more quickly. Dislikes PAP therapy but recognizes its importance, never sleeps w/o it. Her mom is hospitalized in [place] so she has been traveling back and forth. SLEEP APNEA Sleep apnea type : FRANKI, Most Recent Apnea-Hypopnea Index (AHI): 43 Treatment : PAP therapy DME: [facility] PAP History: Current PAP settin-9 cm H2O. Reviewed objective PAP compliance data: Mask type: full face mask Uses eye ointment, zinc oxide in nose and tapes mouth shut in order to deal with dry eyes and mouth There is a perceived benefit by the patient: better sleep PATIENT-ENTERED QUESTIONNAIRE SLEEP SCORES 03/03/2024 Sleep Questions Reason for visit: Sleep apnea Difficulty falling or staying asleep or poor sleep quality On average, hours of sleep in 24 hours: 6 Average hours of CPAP per night: 8 Percent of nights CPAP used at least 4 hours: 100 Accidents or near accidents due to drowsy drivin 07/05/2021 08/22/2021 03/03/2024 Willard Sleepiness Scale Score 2 (No daytime sleepiness) 4 (No daytime sleepiness) 2 (No daytime sleepiness) 07/05/2021 08/22/2021 03/03/2024 PROMIS CAT Sleep Disturbance PROMIS Sleep Disturbance T-Score 49 (within normal limits) 56 (mild) 49 (within normal limits) PROMIS Sleep Disturbance Percentile 54 27 54 09/02/2020 11/02/2020 08/22/2021 Insomnia Severity Index Score 18 8 11 07/05/2021 08/22/2021 03/03/2024 PHQ-9 Score 5 4 2 07/28/2021 11/07/2023 03/03/2024 PROMIS Global Health - (T-Scores - the mean of general population = 50. Five points is a clinically meaningful difference.) Physical T-Score 47.7 47.7 57.7 50.8 Mental T-Score 45.8 45.8 53.3 43.5 ALLERGIES Allergen Reactions Environmental Aller* Grass, Trees, Weeds, Molds, Dust and Dust Mites, Dogs, Cats, Horses, Cattle, CURRENT MEDICATIONS: Magnesium Citrate 150mg (Pure Encapsulations) Take 4 capsules daily. lactobacillus combination no.4 (PROBIOTIC) 3 billion cell cap Take 1 capsule by mouth once daily. flaxseed oil-omega 3,6,9 1,300 mg-845 mg -117 mg-117 mg cap Take by mouth. Evnkphjknvfqy-Qawbjakg-Djacdl (MULTIVITAMIN 50 PLUS) tab Take 1 tablet by mouth once daily. Calcium Cmb #9-U4-Lmxdwhnjlgl (CITRACAL D + HEART HEALTH) 315-250-200 mg-unit-mg tab Take by mouth once daily. irbesartan (AVAPRO) 150 mg ORAL tablet Take 150 mg by mouth once daily. Thyrosol (Metagenics) Take 1 tablet by mouth twice daily with meals. busPIRone (BUSPAR) 5 mg tablet Take 1 tablet by mouth twice daily. Meriva-SF (Riya) Take 2 capsules by mouth twice daily. PHYSICAL EXAMINATION: Vital Signs: BP 122/64 Pulse 86 Resp 16 Wt 65.1 kg (143 lb 9.6 oz) SpO2 97% BMI 23.90 kg/m? PHYSICAL EXAM: General appearance: pleasant, NAD Mental status: alert and oriented, able to provide own history Constitutional: WNL Skin: No v (more content not included)... [facility] 02-26-2024 Miscellaneous Notes Formattin g of this note might be different from the original. Images from the original note were not included. documented in this encounter [facility] 12-25-2023 Miscellaneous Notes Formattin g of this note might be different from the original. Note that the correct PAP information is under OTHER ORDERS and not under meds. Martir Hong MD TC to pt who states Yvon from [facility] has changed pressures. Pt would like CPAP under medication updated with new machine - Dream station, and her new pressure and that she does not use a chin strap. Shashank Nunez LPN Pressure change orders faxed to [facility] in [place] per request. Shashank Nunez LPN Pt called and she has never been with [facility]. She is with [facility] and always has been. Please fax to [facility] Attn: Yvon. Pt update pt's apt sc Apt was made 03/04/24 please change description to [facility]. Per pt setting should not be on 7 but was discussed pt thinks now with auto was was going to range up to 9. Pt reports this was discussed with Dr. Hong and should have in his notes. Pt before she got her new machine was using her 's machine which did not have auto and it was up to rate of 7. Please advise pt. Rain Cohen LPN Faxed Rx PAP pressure change to [facility] [phone] 12/11/2023. Karli Cohen LPN documented in this encounter [facility] 12-11-2023 History of Presen t illness Narrative ESTABLISHED PATIENT VISIT CHIEF COMPLAINT: Follow Up HISTORY OF PRESENT ILLNESS: Nova Salinas is a 63 year old female, BMI 24.13 kg/m2 with a PMH significant for and per last office visit note of 08/24/21 with Brandin Paige SOUND EFFECTS MANAGER: Franki (obstructive sleep apnea) (primary encounter diagnosis) 61 yo female here for follow up for CPAP download check after transitioning to CPAP 7 Cm H2O during recall. She has yet to receive her replacement, but has registered online. PLAN: - Continue CPAP at 7 cmH2O. - Remember to clean your mask and equipment regularly, as directed. - You should be eligible for new supplies approximately every 3-6 months, depending on your insurance coverage. Contact your Durable Medical Equipment (DME) company for new supplies as needed. - Follow up TBD when replacement machine is received Pt now with a new Dreamstation 2 - through [employer]. Pt feels device working fine. However, is waking up during the night due to the valve sound and then continues to do a noise (pt brings in audio recording). States it will occur no matter if equipment is updated. Currently using F20 FFM - states if she uses any other mask it will cause bleeding in her nose. Machine itself is ok except that it leaves lines on her face and also state eyes are dry. Pt has gained weight since 2019 sleep study. At that time AHI was 43.2. Patient reports no issues falling asleep. Wakes feeling refreshed on most days. Occasionally might wake up early and can't go back to sleep if under stress (I.e. had surgery, recent well dug). If sleeps without device, will obstruct immediately per pt. Dry mouth no matter the humidifier setting. At times will tape mouth as she states if she does not her mouth will be dry. Explained risks of doing such. Headaches are more rare but not associated with PAP - instead these are now of surgical origin. Pt states has seen rheum and ophth and no other etiologies of dry mouth or eyes. PAP data download - using nightly for past 90 days for avg of 7 hours nad 48 minutes. AHI is 4.6. Avg unintended leak is 7.6LPM. 90% PAP 7.5 cmH2O. Humidifier set at 2. REVIEW OF SYSTEMS GENERAL:No weight loss, malaise or fevers. HEENT:Negative for frequent or significant headaches, No changes in hearing or vision, no nose bleeds or other nasal problems NECK:Negative for lumps, goiter, pain and significant neck swelling RESPIRATORY: Negative for cough, wheezing or shortness of breath. CARDIOVASCULAR: Negative for chest pain, leg swelling or palpitations. GASTROINTESTINAL: Negative for abdominal discomfort, blood in stools or black stools or change in bowel habits GENITOURINARY: No history of dysuria, frequency or incontinence MUSCULOSKELETAL: Negative for joint pain or swelling, back pain or muscle pain. NEUROLOGIC:Negative for focal numbness or weakness, headaches and dizziness or syncope, vision changes, speech/languag changes - EXCEPT that as per HPI above. LAB/IMAGING: Those performed since patient's last visit have been reviewed. Protein, Total (g/dL) Date Value 05/22/2018 7.1 Albumin (g/dL) Date Value 05/22/2018 4.4 Alkaline Phosphatase (U/L) Date Value 05/22/2018 47 Bilirubin, Total (mg/dL) Date Value 05/22/2018 0.5 AST (U/L) Date Value 05/22/2018 31 ALT (U/L) Date Value 05/22/2018 16 ROSARIO (no units) Date Value 03/25/2021 Positive (A) MEDICATIONS: Magnesium Citrate 150mg (Pure Encapsulations) Take 4 capsules daily. lactobacillus combination no.4 (PROBIOTIC) 3 billion cell cap Take 1 capsule by mouth once daily. flaxseed oil-omega 3,6,9 1,300 mg-845 mg -117 mg-117 mg cap Take by mouth. Nfcbzvknxqguv-Zuzqnpyl-Ngojvn (MULTIVITAMIN 50 PLUS) tab Take 1 tablet by mouth once daily. Calcium Cmb #2-C9-Tbtkkaegzvc (CITRACAL D + [employer] HE[facility]) 315-250-200 mg-unit-mg tab Take by mouth once daily. irbesartan (AVAPRO) 150 mg ORAL tablet Take 150 mg by mouth once daily. Thyrosol (Metagenics) Take 1 tablet by mouth twice daily with meals. CPAP Change Settings on old Resmed 7 cm H2O, suitable mask per pt preference, chin strap, head gear, humidity, heated tubing (RENITA), lifetime supplies. G47.33 FRANKI busPIRone (BUSPAR) 5 mg tablet Take 1 tablet by mouth twice daily. Meriva-SF (Riya) Take 2 capsules by mouth twice daily. HISTORIES PAST MEDICAL HISTORY Diagnosis Date Acute gastritis without mention of hemorrhage Contact dermatitis and other eczema, due to unspecified cause Diaphragmatic hernia without mention of obstruction or gangrene Headache(784.0) Hemorrhoids Hypertension states pre Internal hemorrhoids without mention of complication FRANKI (obstructive sleep apnea) 08/29/2019 DME [facility] Edwardo PONV (postoperative nausea and vomiting) 05/28/2018 Snoring FAMILY HISTORY Problem Relation Age of Onset Headache Mother Hypertension Mother Heart Mother Allergies Father SOCIAL HISTORY Social History Tobacco Use Smoking status: Never Smokeless tobacco: Never Substance Use Topics Alcohol use: Yes Drug use: No PHYSICAL EXAMINATION BP 118/66 Pulse 79 Resp 16 Wt 65.8 kg (145 lb) SpO2 98% BMI 24.13 kg/m GENERAL EXAM: General appearance: NAD, pleasant. HEENT: NC/AT, nasal congestion absent, no oral lesions, membranes moist. Deviated septum (to L). Ramos IV) NECK: ROM nml. Lungs: CTA bilaterally. CV: RRR nl S1, S2 Extr: No cyanosis, clubbing or edema. No evidence of fasciculations. Extremity pulses palpable and normal. Skin: Cool to touch. No rash. NEUROLOGICAL EXAM: General: Awake, alert, oriented x3 (person,place,time), fluent, no dysarthria; comprehension, naming, repetition intact. CN: PERRL, EOMI and without nystagmus, VFF to confrontation, facial sensation and strength are normal and symmetric, hearing is intact to finger rub bilaterally, palate and tongue movements are intact and symmetric. SCM and trapezius strength normal. Motor: Normal tone, bulk and strength (5/5) bilaterally (throughout extremities x4). Coordination: FNF, MAGGIE intact. No tremors. Sensation: LT intact throughout. No evidence of neglect. Gait: Stable with normal stride and arm swing. Assessment and Plan: ASSESSMENT/PLAN: 1. Obstructive sleep apnea (adult) (pediatric) - ICD9: 327.23, ICD10: G47.33 (primary diagnosis) Patient with PAP complaints as above, of which etiologies are uncertain. Question if not getting adequate pressure through the night - while overall AHI is normalized, possible that during periods of the night (I.e. REM sleep or if supine) needs higher AHI. Possible that not getting up to that higher pressure is resulting in abnormal sounds. Otherwise history would suggest an overall perceived benefit. Subjective and objective PAP compliance confirmed. In attempt to troubleshoot complaints will change patient to Auto PAP at setting of 5-9 cmH2O to allow for higher pressure if needed, and likewise lower pressure, if not having respiratory events. Uncertain if this will impact noise that patient is hearing, but will ask her to inform us of whether changes in noise noted over the next week. Rx sent to [facility] ([facility]). Discussed with patient: the physiology of OSAS, medical conditions associated with OSAS (DM, HTN, CAD, Depression, Stroke, Headache...) and treatment options beside PAP. Advised patient to avoid activities that could harm self or others when tired/sleepy, including driving and/or operating heavy machinery. Discussed importance of good sleep hygiene. Martir Hong MD I spent a total of 35 minutes on the date of the service which included preparing to see the patient, [id number] patient care, completing clinical documentation, obtaining and/or reviewing separately obtained history, performing a medically appropriate examination, counseling and educating the patient/family/caregiver, ordering medications, tests, or procedures, independently interpreting results (not separately reported), and communicating results to the patient/family/caregiver (results = PAP data download). documented in this encounter [facility] 06-14-2023 Miscellaneous Notes Formattin g of this note might be different from the original. SLEEP CMN REJECTION NOTICE We received a Certificate of Medical Necessity(CMN) from the [employer] medical equipment [employer] - , via fax. Patients are required to be seen in the sleep department at least once a year to have this Certificate of Medical Necessity(CMN) form completed. The last visit in the sleep department was on 07/06/21, and therefore an appointment is required. Please contact our Scheduling Department at: [phone] or [phone]. Thank you, [facility] documented in this encounter [facility] Evaluation note No assessment inform ation available [facility] Work Phone: Evaluation note Diagnosis Obstructive sleep apnea (adult) (pediatric)- Primary FRANKI (obstructive sleep apnea) Obstructive sleep apnea (adult) (pediatric) Difficulty with CPAP use [facility] Diagnosis FRANKI (obstructive sleep apnea)- Primary Obstructive sleep apnea (adult) (pediatric) [facility] Diagnosis FRANKI on CPAP- Primary Obstructive sleep apnea (adult) (pediatric) documented in this encounter [facility] Summary Purpose Family History No Family History Records FoundNo Family History Records FoundNo Family History Records FoundNo Family History Records Found Advance Directives No Advanced Directives Records FoundNo Advanced Directives Records FoundNo Advanced Directives Records FoundNo Advanced Directives Records Found Chief Complaint and Reason for Visit Chief Complaint 2 DRS/ 2 ORDERS Additional Source Comments INFORMATION SOURCE (unrecogn ized section and content) DATE CREATED AUTHOR 11/04/2020 [facility] DATE CREATED AUTHOR AUTHOR'S ORGANIZ ATION 01/08/2025 [facility] DATE CREATED AUTHOR AUTHOR'S ORGANIZ ATION 01/27/2025 [facility] DATE CREATED AUTHOR AUTHOR'S ORGANIZ ATION 02/22/2025 [facility] Goals (unrecognized section and content) Goals may be documented in a n alternate sectionGoals may be documented in an alternate section Care Teams (unrecognized sec tion and content) Team Status: Active Member Role Status Dates Dr. Crispin Ortega MD Family Provider Active Dr. Crispin Ortega MD Primary Care Provider Active Team Status: Inactive Member Role Status Dates Dr. Crispin Ortega MD Primary Care Provide r, Attending Provider, Referring Provider Active Dr. 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 [address] PCP - General Family Medicine 05/08/18 Source Comments (unrecognize d section and content) In the event this informatio n is protected by the Federal Confidentiality of Alcohol and Drug Abuse Patient Records regulations: The Federal rules restrict any use of the information to criminally investigate or prosecute any alcohol or drug abuse patient.[facility] event this information is protected by the Federal Confidentiality of Alcohol and Drug Abuse Patient Records regulations: The Federal rules restrict any use of the information to criminally investigate or prosecute any alcohol or drug abuse patient.[facility] event this information is protected by the Federal Confidentiality of Alcohol and Drug Abuse Patient Records regulations: The Federal rules restrict any use of the information to criminally investigate or prosecute any alcohol or drug abuse patient.[facility] event this information is protected by the Federal Confidentiality of Alcohol and Drug Abuse Patient Records regulations: The Federal rules restrict any use of the information to criminally investigate or prosecute any alcohol or drug abuse patient.[facility] event this information is protected by the Federal Confidentiality of Alcohol and Drug Abuse Patient Records regulations: The Federal rules restrict any use of the information to criminally investigate or prosecute any alcohol or drug abuse patient.[facility] event this information is protected by the Federal Confidentiality of Alcohol and Drug Abuse Patient Records regulations: The Federal rules restrict any use of the information to criminally investigate or prosecute any alcohol or drug abuse patient.[facility] the event this information is protected by the Federal Confidentiality of Alcohol and Drug Abuse Patient Records regulations: The Federal rules restrict any use of the information to criminally investigate or prosecute any alcohol or drug abuse patient.[facility] event this information is protected by the Federal Confidentiality of Alcohol and Drug Abuse Patient Records regulations: The Federal rules restrict any use of the information to criminally investigate or prosecute any alcohol or drug abuse patient.[facility] Reason for Visit (unrecogniz ed section and content) Reason Comments Rejected CMN Reason Comments New Patient Pt reported mask dis comfort, DME [facility]. Reason Comments Orders Reason Comments PAP Therapy Follow Up 01/27/24 - 02/25/24 Reason Comments New Patient Pt reported dry eyes , mouth. Reason Comments PAP Therapy Follow Up Reason Comments Follow Up FOR RECORDS PERTAINING TO PATIENTS WHO ARE OR HAVE BEEN ENROLLED IN A CHEMICAL DEPENDENCY/SUBSTANCEABUSE PROGRAM, SOME INFORMATION MAY BE OMITTED. This clinical summary was aggregated from multiple sources. Caution should be exercised in using it in the provision of clinical care. This summary normalizes information from multiple sources, and as a consequence, information in this document may materially change the coding, format and clinical context of patient data. In addition, data may be omitted in some cases. CLINICAL DECISIONS SHOULD BE BASED ON THE PRIMARY CLINICAL RECORDS. [employer] provides no warranty or guarantee of the accuracy or completeness of information in this document.
== END | disposition home or self-care (01) ==
LOC: MFPLAB 12:14
PROVIDERS: PCP Family Medicine; Referring Provider Family Medicine; Visit Provider Family Medicine
DX: G47.33 Obstructive sleep apnea (adult) (pediatric) (principal); I10 Essential (primary) hypertension; E53.8 Deficiency of other specified B group vitamins; E55.9 Vitamin D deficiency, unspecified
CPT/HCPCS: 36415; 80053; 82043; 82306; 82570; 82607; 82746; 84443; 85025

== ENCOUNTER → 2025-07-04 | Outpatient (CLI) | payer OTHER, SELFPAY ==
--- NOTE | 2025-07-03 16:51 | BI_ITS ---
EXAM: SCRN MAMM (CAD)W/ANTONIETTA BILAT DATE: 07/03/2025 CLINICAL HISTORY: F, Age 65 y/o , SCREENING No family history. History of prior right stereotactic breast biopsy. TECHNIQUE: SCRN MAMM (CAD)W/ANTONIETTA BILAT COMPARISON: Prior exam(s) dated March 23, 2023.. FINDINGS: TISSUE DENSITY: The breasts are extremely dense, which lowers the sensitivity of mammography. Bilateral Breast Mammographic Findings: No significant masses, calcifications or other abnormalities are identified. A tissue clip marker is once again seen in the upper medial aspect of the right breast. Stable small benign-appearing bilateral axillary lymph nodes. No suspicious masses, areas of developing architectural distortion, or suspicious calcifications. There has been no significant interval change. BI/SCRN MAMM (CAD)W/ANTONIETTA BILAT IMPRESSION: Stable examination. OVERALL FINAL ASSESSMENT BI-RADS 2: BENIGN RECOMMENDATION: Routine annual follow-up in 1 Year A letter with findings and recommendations will be mailed to the patient. Reading Location: [facility]
--- OUTSIDE RECORDS SUMMARY | 2025-07-04 07:20 | XMS RPT_ITS | CCD ---
Author Organization [facility] Care Team Providers Care Mathematics Technician Name Role Phone Crispin Ortega MD Primary Care Provider FAST, FRITZ Primary Care Unavailable REFERRED, SELF Referring Unavailable ITA MÁRQUEZ Attending Unavailable Crispin Ortega MD Primary Care Provider AINSLEY RITTER Attending Unavailable CRISPIN ORTEGA Primary Care Unavailable CRISPIN ORTEGA Primary Care Unavailable AINSLEY RITTER Attending Unavailable CRISPIN ORTEGA Primary Care Unavailable Dr. Crispin Ortega MD Primary Care Provider Dr. Crispin Ortega MD Attending Provider [phone] Dr. Crispin Ortega MD Referring Provider Crispin Ortega Primary Care Unavailable Crispin Ortega Attending Unavailable Crispin Ortega Referring Unavailable Crispin Ortega Primary Care Unavailable Crispin Ortega Attending Unavailable Jordan, Crispin Referring Unavailable Crispin Ortega Attending Unavailable Jordan Crispin Referring Unavailable Crispin Ortega Primary Care Unavailable Allergies Allergy Classification Reported Allergen(s) Allergy Type Date of Onset Reaction(s) Facility (5 sources) Environmental allergies [Other] Propensity to adverse reactions [address] [place] [address] (1 source) OTHER; Translations: [OTHER] Propensity to adverse reactions (disorder) 6 [facility] Medications Current Medications Medication Drug Class(es) Dates Sig (Normalized) Sig (Original) Calcium Cmb #4-H9-Lybvfwyacyw (CITRACAL D + [facility]ART HEALTH) 315-250-200 mg-unit-mg tab (8 sources) Calcium Cmb #5-E1-Zljqwltsgvb (CITRACAL D + HEART HEALTH) 315-250-200 mg-unit-mg tab Take by mouth once daily. Active Calcium Cmb #2-D 3-Phytostrols (CITRACAL D + HEART [facility]) 315-250-200 mg-unit-mg tab Take by mouth once [...] Comment on above: Take 1 capsule by [facility] once daily. magnesium citrate (8 sources) Start: 01-13-2021 Magnesium Citrate 150mg (Pure Encapsulations) Take 4 capsules daily. 01/13/2021 Active Start: 01-13-2021 Magnesium Citr ate 150mg (Pure Encapsulations) Take 4 capsules daily. 0 01/13/2021 Active Comment on above: Take 4 capsules iveth y. Trjyfbylhuyjh-Jbvbszpz-Dtphw n (MULTIVITAMIN 50 PLUS) tab (8 sources) Multivitamins-Mi nerals-Lutei n (MULTIVITAMIN 50 PLUS) tab Take 1 tablet by mouth once daily. Active Multivitamins-Mi nerals-Lutein (MULTIVITAMIN 50 PLUS) tab Take 1 tablet by mouth once daily. 0 Active Comment on above: Take 1 tablet by saqib th once daily. Completed/Discontinued Medications Medication Drug Class(es) [...] (8 sources) Headache; Translations: [Headache] 03-21-2006 Episodic Other screening for suspected conditions (not mental disorders or infectious disease) (1 source) Encounter for other screening for malignant neoplasm of breast; Translations: [Encounter for other screening for malignant neoplasm of breast] Onset: 07-01-2025 Episodic Residual codes; unclassified (12 sources) Obstructive sleep apnea syndrome; Translations: [Obstructive sleep apnea (adult) (pediatric)] Onset: 08-29-2019 07-05-2021 Chronic Residual codes; unclassified (3 sources) Obstructive sleep apnea (adult) (pediatric); Translations: [...] [Perianal venous thrombosis] Onset: 10-19-2018 10-19-2018 Episodic Other nervous system disorders (1 source) Anosmia; Translations: [Anosmia] Onset: 01-06-2025 Episodic Results Test Name Value Interpretation Reference Range Facility Absolute lymphocyte countOrd ered By: Crispin Ortega on 06-10-2025 Lymphocytes Auto (Unsp spec) [#/Vol] 1.21 10*3/uL 0.83-4.51 [facility] Absolute neutrophil countOrd ered By: Crispin Ortega on 06-10-2025 Neutrophils (Bld) [#/Vol] 3.2 10*3/uL 2.0-7.7 [facility] Anion gap in Serum or Plasma Ordered By: Crispin Ortega on 06-10-2025 Anion gap [Moles/Vol] 14 mmol/L 5-15 [facility] Automated lymphocyte count a s percentage of total leukocytesOrdered By: Crispin Ortega on 06-10-2025 Lymphocytes/100 WBC Auto (Unsp spec) 25.2 % 19- [facility] BUN/creatinine ratioOrdered By: Crispin Ortega on 06-10-2025 Urea nitrogen/Creatinine [Mass ratio] 17.8 mg/mg 10- [facility] Basophil percentageOrdered B y: Crispin Ortega on 06-10-2025 Basophils/100 WBC (Bld) 0.8 % 0-1 [facility] Bilirubin, totalOrdered By: Crispin Ortega on 06-10-2025 Bilirubin [Mass/Vol] 0.55 mg/dL 0.00-1.30 [facility] CBC W/Diff, Automatedon 05-14 Absolute Lymph 1.21 X10 3/uL Normal 0.83-4.51 [facility] Comment on above: Performed By: #### L 506.1001, L503.0106, L502.0250, L500.4050, L506.0200, L100.0100, L501.9520 #### [facility] [address] [place], [address] Absolute Neut 3.2 X10 3/uL Normal 2.0-7.7 [facility] Comment on above: Performed By: #### L 506.1001, L503.0106, L502.0250, L500.4050, L506.0200, L100.0100, L501.9520 #### [facility] [address] [place], [address] Basophils/100 WBC (Bld) 0.8 % Normal 0-1 [facility] Comment on above: Performed By: #### L 506.1001, L503.0106, L502.0250, L500.4050, L506.0200, L100.0100, L501.9520 #### [facility] [address] [place], [address] Eosinophils/100 WBC (Bld) 0.6 % Normal 0-5 [facility] Comment on above: Performed By: #### L 506.1001, L503.0106, L502.0250, L500.4050, L506.0200, L100.0100, L501.9520 #### [facility] [address] [place], [address] Erythrocyte distribution width (RBC) [Ratio] 12.3 % Normal 11.6-14.6 [facility] Comment on above: Performed By: #### L 506.1001, L503.0106, L502.0250, L500.4050, L506.0200, L100.0100, L501.9520 #### [facility] [address] [place], [address] Hematocrit (Bld) [Volume fraction] 38.4 % Normal 37-47 [facility] Comment on above: Performed By: #### L 506.1001, L503.0106, L502.0250, L500.4050, L506.0200, L100.0100, L501.9520 #### [facility] [address] [place], [address] Hemoglobin (Bld) [Mass/Vol] 12.9 g/dL Normal 12.0-15.0 [facility] Comment on above: Performed By: #### L 506.1001, L503.0106, L502.0250, L500.4050, L506.0200, L100.0100, L501.9520 #### [facility] [address] [place], [address] IG% 0.200 Normal 0.0-0.9 [facility] Comment on above: Result Comment: IG% - Immature Granulocytes (promyelocytes, myelocytes and metamyelocytes) > 1% indicates that a LEFT SHIFT is Present. Performed By: #### L 506.1001, L503.0106, L502.0250, L500.4050, L506.0200, L100.0100, L501.9520 #### [facility] [address] [place], [address] Lymphocytes/100 WBC (Bld) 25.2 % Normal 19-41 [facility] Comment on above: Performed By: #### L 506.1001, L503.0106, L502.0250, L500.4050, L506.0200, L100.0100, L501.9520 #### [facility] [address] [place], [address] MCH (RBC) [Entitic mass] 29.4 pg Normal 27.0-32.0 [facility] Comment on above: Performed By: #### L 506.1001, L503.0106, L502.0250, L500.4050, L506.0200, L100.0100, L501.9520 #### [facility] [address] [place], [address] MCHC (RBC) [Mass/Vol] 33.6 g/dL Normal 32-36 [facility] Comment on above: Performed By: #### L 506.1001, L503.0106, L502.0250, L500.4050, L506.0200, L100.0100, L501.9520 #### [facility] [address] [place], [address] MCV (RBC) [Entitic vol] 87.5 fL Normal 81-99 [facility] Comment on above: Performed By: #### L 506.1001, L503.0106, L502.0250, L500.4050, L506.0200, L100.0100, L501.9520 #### [facility] [address] [place], [address] Monocytes/100 WBC (Bld) 7.7 % Normal 0-10 [facility] Comment on above: Performed By: #### L 506.1001, L503.0106, L502.0250, L500.4050, L506.0200, L100.0100, L501.9520 #### [facility] [address] [place], [address] Neutrophils/100 WBC (Bld) 65.5 % Normal 47-70 [facility] Comment on above: Performed By: #### L 506.1001, L503.0106, L502.0250, L500.4050, L506.0200, L100.0100, L501.9520 #### [facility] [address] [place], [address] Nucleated RBC (Bld) [#/Vol] 0 10*3/uL Normal 0-5 [facility] Comment on above: Performed By: #### L 506.1001, L503.0106, L502.0250, L500.4050, L506.0200, L100.0100, L501.9520 #### [facility] [address] [place], [address] Platelet mean volume (Bld) [Entitic vol] 11.5 fL Normal 6.2-12.0 [facility] Comment on above: Performed By: #### L 506.1001, L503.0106, L502.0250, L500.4050, L506.0200, L100.0100, L501.9520 #### [facility] [address] [place], [address] Platelets (Bld) [#/Vol] 194 10*3/uL Normal 150-450 [facility] Comment on above: Performed By: #### L 506.1001, L503.0106, L502.0250, L500.4050, L506.0200, L100.0100, L501.9520 #### [facility] [address] [place], [address] RBC (Bld) [#/Vol] 4.39 10*6/uL Normal 4.2-5.4 [facility] Comment on above: Performed By: #### L 506.1001, L503.0106, L502.0250, L500.4050, L506.0200, L100.0100, L501.9520 #### [facility] [address] [place], [address] RDW SD 39.7 fl Normal 35.1-43.9 [facility] Comment on above: Performed By: #### L 506.1001, L503.0106, L502.0250, L500.4050, L506.0200, L100.0100, L501.9520 #### [facility] [address] [place], [address] WBC (Bld) [#/Vol] 4.8 10*3/uL Normal 4.4-11.0 [facility] Comment on above: Performed By: #### L 506.1001, L503.0106, L502.0250, L500.4050, L506.0200, L100.0100, L501.9520 #### [facility] [address] [place], [address] Carbon dioxide, total [Moles /volume] in Central venous bloodOrdered By: Crispin Ortega on 06-10-2025 CO2 [Moles/Vol] 24.3 mmol/L 21.0-32.0 [facility] Chloride assayOrdered By: Micheal Ortega on 06-10-2025 Chloride [Moles/Vol] 104 mmol/L 98-108 [facility] Comprehensive Metabolic Prof ilon 06-10-2025 Albumin [Mass/Vol] 4.3 g/dL Normal 3.4-4.8 [facility] Comment on above: Performed By: #### L 506.1001, L503.0106, L502.0250, L500.4050, L506.0200, L100.0100, L501.9520 #### [facility] [address] [place], [address] Albumin/Globulin [Mass ratio] 1.6 {ratio} Normal 0.9-2.4 [facility] Comment on above: Performed By: #### L 506.1001, L503.0106, L502.0250, L500.4050, L506.0200, L100.0100, L501.9520 #### [facility] [address] [place], [place], [id number] ALK PHOS 53 U/L Normal 35-104 [facility] Comment on above: Performed By: #### L 506.1001, L503.0106, L502.0250, L500.4050, L506.0200, L100.0100, L501.9520 #### [facility] [address] [place], [place], [id number] [phone] ALT [Catalytic activity/Vol] 16 U/L Normal <=34 [facility] Comment on above: Performed By: #### L 506.1001, L503.0106, L502.0250, L500.4050, L506.0200, L100.0100, L501.9520 #### [facility] [address] [place], [address] AST [Catalytic activity/Vol] 23 U/L Normal <=31 [facility] Comment on above: Performed By: #### L 506.1001, L503.0106, L502.0250, L500.4050, L506.0200, L100.0100, L501.9520 #### [facility] [address] [place], [address] Bilirubin [Mass/Vol] 0.55 mg/dL Normal 0.00-1.30 [facility] Comment on above: Performed By: #### L 506.1001, L503.0106, L502.0250, L500.4050, L506.0200, L100.0100, L501.9520 #### [facility] [address] [place], [address] BUN/CRE 17.8 RATIO Normal 10-20 [facility] Comment on above: Performed By: #### L 506.1001, L503.0106, L502.0250, L500.4050, L506.0200, L100.0100, L501.9520 #### [facility] [address] [place], [address] Calcium [Mass/Vol] 10.1 mg/dL Normal 7.6-11.0 [facility] Comment on above: Performed By: #### L 506.1001, L503.0106, L502.0250, L500.4050, L506.0200, L100.0100, L501.9520 #### [facility] [address] [place], [address] Chloride [Moles/Vol] 104 mmol/L Normal 98-108 [facility] Comment on above: Performed By: #### L 506.1001, L503.0106, L502.0250, L500.4050, L506.0200, L100.0100, L501.9520 #### [facility] [address] [place], [address] CO2 [Moles/Vol] 24.3 mmol/L Normal 21.0-32.0 [facility] Comment on above: Performed By: #### L 506.1001, L503.0106, L502.0250, L500.4050, L506.0200, L100.0100, L501.9520 #### [facility] [address] [place], [address] Creatinine [Mass/Vol] 0.81 mg/dL Normal 0.70-1.20 [facility] Comment on above: Performed By: #### L 506.1001, L503.0106, L502.0250, L500.4050, L506.0200, L100.0100, L501.9520 #### [facility] [address] [place], [address] GAP 14 Normal 5-15 [facility] Comment on above: Performed By: #### L 506.1001, L503.0106, L502.0250, L500.4050, L506.0200, L100.0100, L501.9520 #### [facility] [address] [place], [address] GFR/1.73 sq M.predicted among non-blacks MDRD (S/P/Bld) [Vol rate/Area] 80 mL/min/{1.73_m2} Normal >60 [facility] Comment on above: Result Comment: mL/m in/1.73m2 CKD-EPI Creatinine Equation (2020) Performed By: #### L 506.1001, L503.0106, L502.0250, L500.4050, L506.0200, L100.0100, L501.9520 #### [facility] [address] [place], [address] Globulin (S) [Mass/Vol] 2.7 g/dL Normal 2.2-4.2 [facility] Comment on above: Performed By: #### L 506.1001, L503.0106, L502.0250, L500.4050, L506.0200, L100.0100, L501.9520 #### [facility] [address] [place], [address] Glucose [Mass/Vol] 89 mg/dL Normal 70-99 [facility] Comment on above: Performed By: #### L 506.1001, L503.0106, L502.0250, L500.4050, L506.0200, L100.0100, L501.9520 #### [facility] [address] [place], [address] Potassium [Moles/Vol] 4.1 mmol/L Normal 3.3-5.1 [facility] Comment on above: Performed By: #### L 506.1001, L503.0106, L502.0250, L500.4050, L506.0200, L100.0100, L501.9520 #### [facility] [address] [place], [address] Sodium [Moles/Vol] 142 mmol/L Normal 133-145 [facility] Comment on above: Performed By: #### L 506.1001, L503.0106, L502.0250, L500.4050, L506.0200, L100.0100, L501.9520 #### [facility] [address] [place], [address] T PROT 7.1 g/dL Normal 5.9-8.4 [facility] Comment on above: Performed By: #### L 506.1001, L503.0106, L502.0250, L500.4050, L506.0200, L100.0100, L501.9520 #### [facility] [address] [place], [address] Urea nitrogen [Mass/Vol] 15 mg/dL Normal 4-19 [facility] Comment on above: Performed By: #### L 506.1001, L503.0106, L502.0250, L500.4050, L506.0200, L100.0100, L501.9520 #### [facility] [address] [place], [address] Eosinophil percentageOrdered By: Crispin Ortega on 06-10-2025 Eosinophils/100 WBC (Bld) 0.6 % 0-5 [facility] Erythrocyte distribution wid th ratioOrdered By: Crispin Ortega on 06-10-2025 Erythrocyte distribution width (RBC) [Ratio] 12.3 % 11.6-14.6 [facility] Erythrocyte distribution wid th standard deviationOrdered By: Crispin Ortega on 06-10-2025 Erythrocyte distribution width (RBC) [Ratio] 39.7 fl 35.1-43.9 [facility] Folate [Moles/volume] in Ser um or PlasmaOrdered By: Crispin Ortega on 06-10-2025 Folate [Moles/Vol] 17.00 ng/mL 4.60-34.80 [facility] Comment on above: Hemolysis, Results w ill be affected, Requires Recollection. Folates,Serum (Folic Acid)on 06-10-2025 FOLATES,SERUM 17.00 ng/mL Normal 4.60-34.80 [facility] Comment on above: Order Comment: N Result Comment: Hemo lysis, Results will be affected, Requires Recollection. Performed By: #### L 506.1001, L503.0106, L502.0250, L500.4050, L506.0200, L100.0100, L501.9520 #### [facility] [address] [place], [address] Glomerular filtration rate ( GFR) estimation/1.73 sq m using serum, plasma, or whole bOrdered By: Crispin Ortega on 06-10-2025 GFR/1.73 sq M.predicted among non-blacks MDRD (S/P/Bld) [Vol rate/Area] 80 mL/min/{1.73_m2} >60 [facility] Comment on above: mL/min/1.73m2 CKD-EP I Creatinine Equation (2020) Hematocrit Auto (Bld) [Volum e fraction]Ordered By: Crispin Ortega on 06-10-2025 Hematocrit (Bld) [Volume fraction] 38.4 % 37-47 [facility] Hemoglobin measurementOrdere d By: Crispin Ortega on 06-10-2025 Hemoglobin (Bld) [Mass/Vol] 12.9 g/dL 12.0-15.0 [facility] Immature granulocytes/100 WB C Auto (Bld)Ordered By: Crispin Ortega on 06-10-2025 Immature granulocytes/100 WBC (Bld) 0.200 % 0.0-0.9 [facility] Comment on above: IG% - Immature Granu locytes (promyelocytes, myelocytes and metamyelocytes) > 1% indicates that a LEFT SHIFT is Present. Laboratory - Chemistry and C hemistry - challengeOrdered By: Crispin Ortega on 06-10-2025 AST [Catalytic activity/Vol] 23 U/L <32 [facility] MCV (mean corpuscular volume ) determinationOrdered By: Crispin Ortega on 06-10-2025 MCV (RBC) [Entitic vol] 87.5 fL 81-99 [facility] Mean corpuscular hemoglobin (MCH) determinationOrdered By: Crispin Ortega on 06-10-2025 MCH (RBC) [Entitic mass] 29.4 pg 27.0-32.0 [facility] Mean corpuscular hemoglobin concentration (MCHC) determinationOrdered By: Crispin Ortega on 06-10-2025 MCHC (RBC) [Mass/Vol] 33.6 g/dL 32-36 [facility] Mean platelet volume determi nationOrdered By: Crispin Ortega on 06-10-2025 Platelet mean volume (Bld) [Entitic vol] 11.5 fL 6.2-12.0 [facility] Microalb:Creat Ratio,Random URon 06-10-2025 Creatinine [Mass/Vol] 27.80 mg/dL Low 28.00-217.00 [facility] Comment on above: Performed By: #### L 506.1001, L503.0106, L502.0250, L500.4050, L506.0200, L100.0100, L501.9520 #### [facility] [address] [place], [place], [id number] MALB:CREAT UNABLE TO CALCULATE Normal <30 mg/g CRE [facility] Comment on above: Performed By: #### L 506.1001, L503.0106, L502.0250, L500.4050, L506.0200, L100.0100, L501.9520 #### [facility] [address] [place], [place], [id number] MICROALBUMIN,UR < 12.0 Normal <20 mg/L [facility] Comment on above: Performed By: #### L 506.1001, L503.0106, L502.0250, L500.4050, L506.0200, L100.0100, L501.9520 #### [facility] [address] [place], [place], [id number] Microalbumin/creat ratio urO rdered By: Crispin Ortega on 06-10-2025 Urine microalbumin/creatinine ratio measurement UNABLE TO CALCULATE mg/g CRE <30 [facility] Monocyte percentageOrdered B y: Crispin Ortega on 06-10-2025 Monocytes/100 WBC (Bld) 7.7 % 0-10 [facility] Neutrophil percentageOrdered By: Crispin Ortega on 06-10-2025 Neutrophils/100 WBC (Bld) 65.5 % 47-70 [facility] Nucleated red blood cell per centageOrdered By: Crispin Ortega on 06-10-2025 Nucleated RBC/100 WBC (Bld) [Ratio] 0 % 0-5 [facility] Platelet countOrdered By: Micheal Ortega on 06-10-2025 Platelets (Bld) [#/Vol] 194 10*3/uL 150-450 [facility] Potassium measurement (mass/ volume)Ordered By: Crispin Ortega on 06-10-2025 Potassium (Unsp spec) [Mass/Vol] 4.1 mmol/L 3.3-5.1 [facility] RBC Auto (Bld) [#/Vol]Ordere d By: Crispin Ortega on 06-10-2025 RBC (Bld) [#/Vol] 4.39 10*6/uL 4.2-5.4 [facility] Random urine creatinine cynthia urement (mass/volume)Ordered By: Crispin Ortega on 06-10-2025 Creatinine Unsp time (U) [Mass/Vol] 27.80 mg/dL Low 28.00-217.00 [facility] Serum creatinine measurement (mass/volume)Ordered By: Crispin Ortega on 06-10-2025 Creatinine [Mass/Vol] 0.81 mg/dL 0.70-1.20 [facility] Serum globulin measurementOr dered By: Crispin Ortega on 06-10-2025 Globulin (S) [Mass/Vol] 2.7 g/dL 2.2-4.2 [facility] Serum glucose measurement (m ass/volume)Ordered By: Crispin Ortega on 06-10-2025 Glucose [Mass/Vol] 89 mg/dL 70-99 [facility] Serum or plasma alanine tom otransferase (ALT) measurementOrdered By: Crispin Ortega on 06-10-2025 ALT [Catalytic activity/Vol] 16 U/L <35 [facility] Serum or plasma albumin cynthia urement (mass/volume)Ordered By: Crispin Ortega on 06-10-2025 Albumin [Mass/Vol] 4.3 g/dL 3.4-4.8 [facility] Serum or plasma albumin/glob ulin mass ratioOrdered By: Crispin Ortega on 06-10-2025 Albumin/Globulin [Mass ratio] 1.6 {ratio} 0.9-2.4 [facility] Serum or plasma alkaline harris sphatase measurementOrdered By: Crispin Ortega on 06-10-2025 ALP [Catalytic activity/Vol] 53 U/L 35-104 [facility] Serum or plasma calcium cynthia urement (mass/volume)Ordered By: Crispin Ortega on 06-10-2025 Calcium [Mass/Vol] 10.1 mg/dL 7.6-11.0 [facility] Serum or plasma urea nitroge n measurement (mass/volume)Ordered By: Crispin Ortega on 06-10-2025 Urea nitrogen [Mass/Vol] 15 mg/dL 4-19 [facility] Sodium levelOrdered By: Crispin Ortega on 07-29-2025 Sodium [Moles/Vol] 142 mmol/L 133-145 [facility] TSH DL <= 0.005 mIU/L QnOrde red By: Crispin Ortega on 06-10-2025 TSH Qn 2.240 uIU/mL 0.300-4.200 [facility] Thyroid Stim Hormone (TSH)on 06-10-2025 TSH 2.240 uIU/mL Normal 0.300-4.200 [facility] Comment on above: Performed By: #### L 506.1001, L503.0106, L502.0250, L500.4050, L506.0200, L100.0100, L501.9520 #### [facility] [address] [place], [place], [id number] Total proteinOrdered By: Debi Ortega on 06-10-2025 Protein [Mass/Vol] 7.1 g/dL 5.9-8.4 [facility] Urine albumin measurement wi detection limit of 20 mg/L or less (mass/volume)Ordered By: Crispin Ortega on 06-10-2025 Albumin DL <= 20 mg/L (U) [Mass/Vol] < 12.0 mg/L <20 mg/L [facility] Vitamin B12on 06-10-2025 Cobalamin (Vitamin B12) [Mass/Vol] 1594 pg/mL High 180-914 [facility] Comment on above: Performed By: #### L 506.1001, L503.0106, L502.0250, L500.4050, L506.0200, L100.0100, L501.9520 #### [facility] [address] [place], [address] Vitamin B12 ser/plasOrdered By: Crispin Ortega on 06-10-2025 Cobalamin (Vitamin B12) [Mass/Vol] 1594 pg/mL High 180-914 [facility] Vitamin D,25 Hydroxyon 06-10 Vitamin D 25-OH 43.1 ng/mL Normal 30-100 [facility] Comment on above: Result Comment: Valentine min D Status Deficiency: <20 ng/mL (50nmol/L) Insufficiency: 20-30 ng/mL (50-75 nmol/L) Sufficiency: 30-100 ng/mL (75-250 nmol/L) Toxicity: >100 ng/mL (>250 nmol/L) Performed By: #### L 506.1001, L503.0106, L502.0250, L500.4050, L506.0200, L100.0100, L501.9520 #### [facility] [address] [place], [address] White blood cell (WBC) count Ordered By: Crispin Ortega on 06-10-2025 WBC (Bld) [#/Vol] 4.8 10*3/uL 4.4-11.0 [facility] CNOVon 02-17-2025 CNOV Office Visit (SLEWST ) BRADNOVA M ([id number]) 1960 F Date Time Provider Department 02/17/25 11:30 AM AINSLEY RITTER During your visit today, we recorded the following information about you: Pulse Respiration Blood pressure Weight 74/minute 18/minute 128/76 68.4 kg Ainsley Ritter APRN.CNP 02/17/2025 12:24 PM Signed [facility] Follow up/ Established patient visit Date of last visit : 03/04/2024 The following Impression/Plan was copied and pasted from the patient's last [facility] visit on 03/04/24: IMPRESSION: Franki (obstructive sleep apnea) (primary encounter diagnosis) Novarachel Salinas is a 63 year old female [...] Follow up in 12 months Ainsley Ritter APRN.[employer] Here for follow up for annual visit for severe FRANKI on APAP, dislikes CPAP but is compliant Only has faint sense of taste and smell since 01/2024. Recent testing by foster winder showed she has no allergies. Gets mask [...] sorted in reverse-chronological order 07/05/2021 08/22/2021 03/03/2024 [place] Sleepiness Scale Score 2 (No clinically significant [...] tablet by mouth once daily. Calcium Cmb #3-O7-Ypmqabhuone (CITRACAL D + HEART HEALTH) 315-250-200 mg-unit-mg tab Take by mouth once daily. irbesartan (AVAPRO) 150 mg ORAL tablet Take 150 mg by mouth once daily. PHYSICAL EXAMINATION: Vital Signs: BP 128/7 (more content not included)... [facility] Tele[facility] (SLEWST) NOVA SALINAS ([id number]) 1960 F Date Time Provider Department 02/17/25 [...] by mouth once daily. - Calcium Cmb #8-K3-Ratgduocfpd (CITRACAL D + [facility]ART HEALTH) 315-250-200 mg-unit-mg [...] Encounter Status:Closed by SHASHANK NUNEZ on 02/17/25 [facility] 02-14-2025 CNPN Telephone (SLEWST) NOVA SALINAS ([id number]) 1960 F Date Time Provider Department 02/14/25 [...] by mouth once daily. - Calcium Cmb #8-D0-Kxtwnawnfzn ([facility] 315-250-200 mg-unit-mg tab Take by mouth once [...] Status:Closed by SHASHANK NUNEZ on 02/17/25 Normal [facility] Angiotensin Convert Enzymeon 12-23-2024 ANGIOT-CONV.ENZ 50 U/L Normal 14 [facility] Comment on above: Result Comment: Perf ormed at: - [facility] [address] [id number] Gas Or Water Meter Installer: Santiago Pressley PhD, Phone: [phone] Performed By: #### L 509.8000, [id number], L3100.6900 #### [facility] [address] [place], [address] Antinuclear Antibody, IFAon 12-23-2024 ROSARIO, IFA Positive Abnormal . [facility] Comment on above: Result Comment: Nega tive <1:80 Borderline 1:80 Positive >1:80 Performed By: #### L 509.8000, L3100.7950, L3100.6900 #### [facility] [address] [place], [address] ROSARIO-NOTE Comment Normal . [facility] Comment on above: Result Comment: [place] medellin Potential Disease Association Homogeneous Systemic Lupus Erythematosus, Drug Induced Systemic Lupus Erythematosus, Chronic Autoimmune hepatitis, Juvenile Idiopathic Arthritis Speckled Sjogren Syndrome, Systemic Lupus Erythematosus, Subacute Cutaneous Lupus, Lupus, Congenital Heart Block, Mixed Connective Tissue Disease, Scleroderma-diffuse, Scleroderma-Autoimmune Myositis Overlap Syndrome, Systemic Lupus Pbbtrmpoibxxp-Enkxhgtbqxi-Iqyhezlexr Myositis Overlap Syndrome, Systemic Autoimmune Rheumatic Disease, [...] Cytopenias, Linear Scleroderma, Antiphospholipid Syndrome Performed at: [address] [id number] Gas Or Water Meter Installer: Santiago Pressley PhD, Phone: [phone] Performed By: #### L 509.8000, L3100.7950, L3100.6900 #### [facility] [address] [place], [address] CENTRIOLE TNP Normal . [facility] Comment on above: Performed By: #### L 509.8000, L3100.7950, L3100.6900 #### [facility] [address] [place], [address] CENTROMERE PAT. 1:640 Abnormal . [facility] Comment on above: Result Comment: ICAP nomenclature: AC-3 Performed By: #### L 509.8000, L3100.7950, L3100.6900 #### [facility] [address] [place], [address] HOMOGENEOUS PAT TNP Normal . [facility] Comment on above: Performed By: #### L 509.8000, L3100.7950, L3100.6900 #### [facility] [address] [place], [address] MIDBODY TNP Normal . [facility] Comment on above: Performed By: #### L 509.8000, L3100.7950, L3100.6900 #### [facility] [address] [place], [address] NUCLEAR DOT TNP Normal . [facility] Comment on above: Performed By: #### L 509.8000, L3100.7950, L3100.6900 #### [facility] [address] [place], [address] NUCLEAR MEMBRAN TNP Normal . [facility] Comment on above: Performed By: #### L 509.8000, L3100.7950, L3100.6900 #### [facility] [address] [place], [address] NUCLEOLAR PAT. TNP Normal . [facility] Comment on above: Performed By: #### L 509.8000, L3100.7950, L3100.6900 #### [facility] [address] [place], [address] PNCA TNP Normal . [facility] Comment on above: Performed By: #### L 509.8000, L3100.7950, L3100.6900 #### [facility] [address] [place], [address] SPECKLED PAT. TNP Normal . [facility] Comment on above: Performed By: #### L 509.8000, L3100.7950, L3100.6900 #### [facility] [address] [place], [address] SPINDLE APPARAT TNP Normal . [facility] Comment on above: Performed By: #### L 509.8000, L3100.7950, L3100.6900 #### [facility] [address] [place], [address] L509.8000on 12-21-2024 Syphilis Abs Non-Reactive Normal [facility] Comment on above: Performed By: #### L 509.8000, L3100.7950, L3100.6900 #### [facility] [address] [place], [address] CNOVon 03-04-2024 CNOV Office Visit (SLEWST ) NOVA SALINAS ([id number]) 1960 F Date Time Provider Department 03/04/24 8:00 AM AINSLEY RITTRE SLEASHLY During your visit today, we recorded the following information about you: Pulse Respiration Blood pressure Weight 86/minute 16/minute 122/64 65.1 kg Ainsley Ritter APRN.BASIN CLEANER 03/04/2024 8:32 AM Signed [facility] Follow up/ Established patient [...] w/o it. Her mom is hospitalized in [place] so she has been traveling back and [...] due to drowsy drivin 07/05/2021 08/22/2021 03/03/2024 [place] Sleepiness Scale Score 2 (No daytime sleepiness) [...] tablet by mouth once daily. Calcium b #7-A6-Jreqqeapqgk ([facility]RAC[facility] D [facility])) 315-250-200 mg-unit-mg tab Take by mouth once daily. irbesartan (AVAPRO) 150 mg ORAL tablet Take 150 mg by mouth once daily. Thyrosol (Metagenics) Take 1 tablet by mouth twice daily with meals. busPIRone (BUSPAR) 5 mg tablet Take 1 tablet by mouth twice daily. Meriva-SF (Riya) Take 2 capsules by mouth twice daily. PHYSICAL EXAMINATIO (more content not included)... Normal [facility] 02-26-2024 [facility] Telephone ([facility]) NOVA SALINAS ([id number]) 1960 F Date Time Provider Department 02/26/24 AINSLEY RITTER [facility] During your visit today, we recorded the [...] by mouth once daily. - Calcium Cmb #9-H1-Emvycfejtcb (CITRACAL D + [employer] [facility]) 315-250-200 mg-unit-mg tab Take by mouth [...] Status:Closed by ROGELIO LLAMAS on 02/26/24 Normal [facility] Absolute lymphocyte countOrd ered By: Dr. Gonzales on 12-03-2022 Lymphocytes Auto (Unsp spec) [#/Vol] 1.40 10*3/uL 0.83-4.51 [facility] Basophil percentageOrdered B y: Dr. Gonzales on 12-03-2022 Basophils/100 WBC (Bld) 0.2 % 0-1 [facility] Bilirubin [Mass/Vol] 0.60 mg/dL 0.20-1.00 [facility] Comment on above: For patients on eltr ombopag therapy, use of Dimension [place] TBIL is not recommended. Chloride [Moles/Vol] 104 mmol/L 98-107 [facility] Eosinophils/100 WBC (Bld) 3.2 % 0-5 [facility] Glucose [Mass/Vol] 94 mg/dL 74-106 [facility] Neutrophils (Bld) [#/Vol] 2.1 10*3/uL 2.0-7.7 [facility] Neutrophils/100 WBC (Bld) 52.8 % 47-70 [facility] Potassium [Moles/Vol] 4.2 mmol/L 3.5-5.1 [facility] Protein [Mass/Vol] 7.6 g/dL 6.4-8.2 [facility] Sodium [Moles/Vol] 138 mmol/L 136-145 [facility] WBC (Bld) [#/Vol] 4.0 10*3/uL 4.4-11.0 [facility] Basophil percentageOrdered B y: Dr. Ortega on 12-03-2022 Cholesterol [Mass/Vol] 170 mg/dL <200 [facility] Comment on above: <200 mg/dL Desirable 200-240 mg/dL Borderline >240 mg/dL High Risk Triglyceride [Mass/Vol] 81 mg/dL <199 [facility] Comment on above: The drugs N-Acetylcy steine and Metamizole may falsely depress this assay.Serum Triglycerides Reference Interval Normal <150 mg/dL Borderline high 150 - 199 mg/dL High 200 - 499 mg/dL Very High > or = 500 mg/dL Blood erythrocytes count (nu mber/volume)Ordered By: Dr. Gonzales on 12-03-2022 RBC (Bld) [#/Vol] 4.57 10*6/uL 4.2-5.4 [facility] Blood hemoglobin measurement (mass/volume)Ordered By: Dr. Gonzales on 12-03-2022 Hemoglobin (Bld) [Mass/Vol] 13.4 g/dL 12.0-15.0 [facility] Blood lymphocytes/100 leukoc ytesOrdered By: Dr. Gonzales on 12-03-2022 Lymphocytes/100 WBC (Bld) 34.9 % 19-41 [facility] Blood monocytes/100 leukocyt esOrdered By: Dr. Gonzales on 12-03-2022 Monocytes/100 WBC (Bld) 8.7 % 0-10 [facility] Blood platelet mean volumeOr dered By: Dr. Gonzales on 12-03-2022 Platelet mean volume (Bld) [Entitic vol] 12.1 fL 6.2-12.0 [facility] Determination of erythrocyte mean corpuscular volume (MCV)Ordered By: Dr. Gonzales on 12-03-2022 MCV (RBC) [Entitic vol] 89.1 fL 81-99 [facility] Erythrocyte sedimentation ra teOrdered By: Dr. Gonzales on 12-03-2022 ESR (Bld) [Velocity] 8 mm/h 0-30 [facility] Hematocrit Auto (Bld) [Volum e fraction]Ordered By: Dr. Gonzales on 12-03-2022 Hematocrit (Bld) [Volume fraction] 40.7 % 37-47 [facility] - Chemistry and C hemistry - challengeOrdered By: Dr. Gonzales on 12-03-2022 ALP [Catalytic activity/Vol] 57 U/L 45-117 [facility] ALT [Catalytic activity/Vol] 32 U/L 13-56 [facility] CO2 [Moles/Vol] 30.0 mmol/L 21.0-32.0 [facility] Globulin (S) [Mass/Vol] 3.6 g/dL 2.2-4.2 [facility] Urea nitrogen/Creatinine [Mass ratio] 16.7 mg/mg 10-20 [facility] - Chemistry and C hemistry - challengeOrdered By: Dr. Ortega on 12-03-2022 Free T4 [Mass/Vol] 1.12 ng/dL 0.76-1.46 [facility] - Hematology and Cell countsOrdered By: Dr. Gonzales on 12-03-2022 Erythrocyte distribution width (RBC) [Entitic vol] 40.5 fL 35.1-43.9 [facility] Erythrocyte distribution width (RBC) [Ratio] 12.5 % 11.6-14.6 [facility] Immature granulocytes/100 WBC (Bld) 0.200 % 0.0-0.9 [facility] Comment on above: IG% - Immature Granu locytes (promyelocytes, myelocytes and metamyelocytes) > 1% indicates that a LEFT SHIFT is Present. MCH (RBC) [Entitic mass] 29.3 pg 27.0-32.0 [facility] Nucleated RBC/100 WBC (Bld) [Ratio] 0 % 0-5 [facility] MCHC Auto (RBC) [Mass/Vol]Or dered By: Dr. Gonzales on 12-03-2022 MCHC (RBC) [Mass/Vol] 32.9 g/dL 32-36 [facility] No Panel InformationOrdered By: Dr. Gonzales on 12-03-2022 Estimated GFR (MDRD) Amer 81 mL/min >60 [facility] Comment on above: GFR Calc Estimated GFR (MDRD) Non-Af Amer 67 mL/min >60 [facility] Comment on above: Non- GFR Calc No Panel InformationOrdered By: Dr. Ortega on 12-03-2022 Thyroid Stimulating Hormone (TSH) 2.12 uIU/mL 0.358-3.74 [facility] Urine Microalbumin/Creatinine Ratio TNP [facility] Comment on above: Test not performed Platelets bldOrdered By: Dr. Gonzales on 12-03-2022 Platelets (Bld) [#/Vol] 158 10*3/uL 150-450 [facility] Serum or plasma C reactive p rotein measurement (mass/volume)Ordered By: Dr. Gonzales on 12-03-2022 CRP [Mass/Vol] mg/L 0.0-3.0 [facility] Comment on above: C-Reactive Protein ( CRP) provides useful information for thediagnosis, therapy and monitoring of inflammatory processesand associated diseases. For the evaluation of Relative Riskfor Cardiovascular Disease, a High Sensitivity CRP (HSCRP)should be ordered. Serum or plasma albumin cynthia urement (mass/volume)Ordered By: Dr. Gonzales on 12-03-2022 Albumin [Mass/Vol] 4.0 g/dL 3.2-5.0 [facility] Serum or plasma albumin/glob ulin mass ratioOrdered By: Dr. Gonzales on 12-03-2022 Albumin/Globulin [Mass ratio] 1.1 {ratio} 0.9-2.4 [facility] Serum or plasma calcium cynthia urement (mass/volume)Ordered By: Dr. Gonzales on 12-03-2022 Calcium [Mass/Vol] 9.4 mg/dL 8.5-10.1 [facility] Serum or plasma cholesterol in HDL measurement (mass/volume)Ordered By: Dr. Ortega on 12-03-2022 Cholesterol in HDL [Mass/Vol] 76 mg/dL >40 [facility] Comment on above: The drugs N-Acetylcy steine and Metamizole may falsely depress this assay. Reference Range HDL <40 mg/dL Low HDL Cholesterol HDL >or= 60 mg/dL High HDL Cholesterol Serum or plasma cholesterol in VLDL measurement (mass/volume)Ordered By: Dr. Ortega on 12-03-2022 Cholesterol in VLDL [Mass/Vol] 16 mg/dL 5-40 [facility] Serum or plasma creatinine m easurement (mass/volume)Ordered By: Dr. Gonzales on 12-03-2022 Creatinine [Mass/Vol] 0.90 mg/dL 0.55-1.02 [facility] Comment on above: The validity of the calculated GFR & GFRAA in patients over 70 years has not been determined. Clinical correlation is essential. Serum or plasma low density lipoprotein (LDL) cholesterol measurement (mass/volume)Ordered By: Dr. Ortega on 12-03-2022 Cholesterol in LDL [Mass/Vol] 78 mg/dL 0-130 [facility] Serum or plasma urea nitroge n measurement (mass/volume)Ordered By: Dr. Gonzales on 12-03-2022 Urea nitrogen [Mass/Vol] 15 mg/dL 7-18 [facility] Thin prep Papanicolaou smear with manual screeningOrdered By: Dr. Gonzales on 12-03-2022 Thin prep Papanicolaou smear with manual screening 24 U/L 15-37 [facility] Thin prep Papanicolaou smear with manual screening 4 5-15 [facility] Thin prep Papanicolaou smear with manual screeningOrdered By: Dr. Ortega on 12-03-2022 Thin prep Papanicolaou smear with manual screening < 5.0 mg/L NO RANGE EST. [facility] Urine creatinine measurement (mass/volume)Ordered By: Dr. Ortega on 12-03-2022 Creatinine (U) [Mass/Vol] 14.70 mg/dL NO RANGE EST. [facility] Absolute lymphocyte counton 04-16-2022 Lymphocytes Auto (Unsp spec) [#/Vol] 1.51 10*3/uL 0.83-4.51 [facility] Work Phone: Basophil percentageon 2021 Basophils/100 WBC (Bld) 0.4 % 0-1 [facility] Work Phone: Bilirubin [Mass/Vol] 0.50 mg/dL 0.20-1.00 [facility] Work Phone: Comment on above: For patients on eltr ombopag therapy, use of Dimension [place] TBIL is not recommended. Chloride [Moles/Vol] 104 mmol/L 98-107 [facility] Work Phone: Eosinophils/100 WBC (Bld) 1.8 % 0-5 [facility] Work Phone: Glucose [Mass/Vol] 93 mg/dL 74-106 [facility] Work Phone: Neutrophils (Bld) [#/Vol] 3.4 10*3/uL 2.0-7.7 [facility] Work Phone: Neutrophils/100 WBC (Bld) 61.7 % 47-70 [facility] Work Phone: Potassium [Moles/Vol] 4.1 mmol/L 3.5-5.1 [facility] Work Phone: Protein [Mass/Vol] 6.9 g/dL 6.4-8.2 [facility] Work Phone: Sodium [Moles/Vol] 139 mmol/L 136-145 [facility] Work Phone: WBC (Bld) [#/Vol] 5.4 10*3/uL 4.4-11.0 [facility] Work Phone: Blood erythrocytes count (nu mber/volume)on 04-16-2022 RBC (Bld) [#/Vol] 4.27 10*6/uL 4.2-5.4 [facility] Work Phone: Blood hemoglobin measurement (mass/volume)on 04-16-2022 Hemoglobin (Bld) [Mass/Vol] 12.7 g/dL 12.0-15.0 [facility] Work Phone: Blood lymphocytes/100 leukoc yteson 04-16-2022 Lymphocytes/100 WBC (Bld) 27.8 % 19-41 [facility] Work Phone: [phone] Blood monocytes/100 leukocyt eson 04-16-2022 Monocytes/100 WBC (Bld) 8.1 % 0-10 [facility] Work Phone: Blood platelet mean volumeon 04-16-2022 Platelet mean volume (Bld) [Entitic vol] 11.8 fL 6.2-12.0 [facility] Work Phone: Determination of erythrocyte mean corpuscular volume (MCV)on 04-16-2022 MCV (RBC) [Entitic vol] 87.4 fL 81-99 [facility] Work Phone: Erythrocyte sedimentation ra reginaldo 04-16-2022 ESR (Bld) [Velocity] 4 mm/h 0-30 [facility] Work Phone: Hematocrit Auto (Bld) [Volum e fraction]on 04-16-2022 Hematocrit (Bld) [Volume fraction] 37.3 % 37-47 [facility] Work Phone: Laboratory - Chemistry and C hemistry - challengeon 04-16-2022 ALP [Catalytic activity/Vol] 42 U/L 45-117 [facility] Work Phone: ALT [Catalytic activity/Vol] 29 U/L 13-56 [facility] Work Phone: [phone] CO2 [Moles/Vol] 31.0 mmol/L 21.0-32.0 [facility] Work Phone: [phone] Globulin (S) [Mass/Vol] 3.2 g/dL 2.2-4.2 [facility] Work Phone: [phone] Urea nitrogen/Creatinine [Mass ratio] 24.2 mg/mg 10-20 [facility] Work Phone: [phone] Laboratory - Hematology and Cell countson 04-16-2022 Erythrocyte distribution width (RBC) [Entitic vol] 39.1 fL 35.1-43.9 [facility] Work Phone: [phone] Erythrocyte distribution width (RBC) [Ratio] 12.2 % 11.6-14.6 [facility] Work Phone: [phone] Immature granulocytes/100 WBC (Bld) 0.200 % 0.0-0.9 [facility] Work Phone: [phone] Comment on above: IG% - Immature Granu locytes (promyelocytes, myelocytes and metamyelocytes) > 1% indicates that a LEFT SHIFT is Present. MCH (RBC) [Entitic mass] 29.7 pg 27.0-32.0 [facility] Work Phone: [phone] Nucleated RBC/100 WBC (Bld) [Ratio] 0 % 0-5 [facility] Work Phone: [phone] MCHC Auto (RBC) [Mass/Vol]on 04-16-2022 MCHC (RBC) [Mass/Vol] 34.0 g/dL 32-36 [facility] Work Phone: [phone] No Panel Informationon 04-16 Estimated GFR (MDRD) Amer 85 mL/min >60 [facility] Work Phone: [phone] Comment on above: GFR Calc Estimated GFR (MDRD) Non-Af Amer 70 mL/min >60 [facility] Work Phone: [phone] Comment on above: Non- GFR Calc Platelets bldon 04-16-2022 Platelets (Bld) [#/Vol] 159 10*3/uL 150-450 [facility] Work Phone: [phone] Serum or plasma C reactive p rotein measurement (mass/volume)on 04-16-2022 CRP [Mass/Vol] mg/L 0.0-3.0 [facility] Work Phone: Comment on above: C-Reactive Protein ( CRP) provides useful information for thediagnosis, therapy and monitoring of inflammatory processesand associated diseases. For the evaluation of Relative Riskfor Cardiovascular Disease, a High Sensitivity CRP (HSCRP)should be ordered. Serum or plasma albumin cynthia urement (mass/volume)on 04-16-2022 Albumin [Mass/Vol] 3.7 g/dL 3.2-5.0 [facility] Work Phone: Serum or plasma albumin/glob ulin mass ratioon 04-16-2022 Albumin/Globulin [Mass ratio] 1.2 {ratio} 0.9-2.4 [facility] Work Phone: Serum or plasma calcium cynthia urement (mass/volume)on 04-16-2022 Calcium [Mass/Vol] 9.3 mg/dL 8.5-10.1 [facility] Work Phone: Serum or plasma creatinine m easurement (mass/volume)on 04-16-2022 Creatinine [Mass/Vol] 0.87 mg/dL 0.55-1.02 [facility] Work Phone: Comment on above: The validity of the calculated GFR & GFRAA in patients over 70 years has not been determined. Clinical correlation is essential. Serum or plasma urea nitroge n measurement (mass/volume)on 04-16-2022 Urea nitrogen [Mass/Vol] 21 mg/dL 7-18 [facility] Work Phone: Thin prep Papanicolaou smear with manual screeningon 04-16-2022 Thin prep Papanicolaou smear with manual screening 20 U/L 15-37 [facility] Work Phone: [phone] Thin prep Papanicolaou smear with manual screening 4 5-15 [facility] Work Phone: PROGRESSon 11-03-2020 PROGRESS HNO ID: [id number] Author: Dannielle Palm Service: ? Author Type: [...] part in visit: patient and psychologist via [employer]. Consent for this visit received from patient. [...] DIAGNOSIS: Chronic Insomnia ? 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 GOALS/OBJECTIVES/INTE RVENTIONS: Pt has met treatment goals with BSM team, will revisit and follow up with our services if she has difficulty with tapering to lower dosage/discontinuing her trazodone Dannielle Palm Psy.D., [facility], Psychologist ([place] License [id number]) [facility] PROGRESSon 09-09-2020 PROGRESS HNO ID: [id number] Author: Dannielle Palm Service: ? Author Type: Psychologist Type: Progress Notes Filed: 09/09/2020 3:30 PM Note Text: Behavioral Sleep Medicine Consult Psychological Evaluation [id number] Patient was seen for an initial evaluation. All information is from patient report and review of medical record except when noted. This evaluation is NOT intended for forensic, disability or child custody purposes. Due to the [facility] and [place] [facility] and the need for ongoing mental health services, the following visit was completed virtually to reduce the risk of COVID-19 exposure. Consent related to virtual visits was provided verbally after information was sent via [employer] or read to patient if MyChart not available. PRESENT: Self Nova Salinas is a 60 year old year old female who presents for a BSM evaluation for insomnia, referred by [facility] Sleep Disorders Physician/APPLICATION SOFTWARE DEVELOPER - Kristin Paige Mrs. Salinas has not been previously evaluated and treated by Behavioral Sleep Medicine at the [facility]. PMH: ACTIVE PROBLEM LIST Contact Dermatitis and [...] by mouth once daily. 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 and resides with her in [place]. No children Mental Status Exam General/Sensorium: Alert [...] up in 2 weeks. Dannielle Palm Psy.D., [facility], Psychologist ([place] License [id number]) [facility] Vital Signs Date Time Vital Sign Value Performing Clinician Faci leny 02-17-2025 11:25-0400 Body mass index (BMI) [Ratio] 25.09 kg/m2 Ainsley Ritter APRN.CNP Work Phone: [facility] 02-17-2025 11:25-040 Body weight 68.4 kg Ainsley Ritter APRN.CNP Work Phone: [facility] 02-17-2025 11:25-0400 Diastolic blood pressure 76 mm[Hg] Ainsley Riya NETBACKUP ENGINEER.BASIN CLEANER Work Phone: [facility] 02-17-2025 11:25-0400 Heart rate 74 /min Ainsley Riya NETBACKUP ENGINEER.BASIN CLEANER Work Phone: [facility] 02-17-2025 11:25-0400 Respiratory rate 18 /min Ainsley Riya NETBACKUP ENGINEER.BASIN CLEANER Work Phone: [facility] 02-17-2025 11:25-0400 SaO2% (BldA) [Mass fraction] 97 % Ainsley Riya NETBACKUP ENGINEER.BASIN CLEANER Work Phone: [facility] 02-17-2025 11:25-0400 Systolic blood pressure 128 mm[Hg] Ainsley Riya NETBACKUP ENGINEER.BASIN CLEANER Work Phone: [facility] 03-04-2024 07:59-0400 Body weight 65.14 kg Ainsley Riya NETBACKUP ENGINEER.BASIN CLEANER Work Phone: [facility] 03-04-2024 07:59-0400 Diastolic blood pressure 64 mm[Hg] Ainsley Riya NETBACKUP ENGINEER.BASIN CLEANER Work Phone: [facility] 03-04-2024 07:59-0400 Heart rate 86 /min Ainsley Riya NETBACKUP ENGINEER.BASIN CLEANER Work Phone: [facility] 03-04-2024 07:59-0400 Respiratory rate 16 /min Ainsley Riya NETBACKUP ENGINEER.BASIN CLEANER Work Phone: [facility] 03-04-2024 07:59-0400 SaO2% (BldA) [Mass fraction] 97 % Ainsley Riya NETBACKUP ENGINEER.BASIN CLEANER Work Phone: [facility] 03-04-2024 07:59-0400 Systolic blood pressure 122 mm[Hg] Ainsley Riya NETBACKUP ENGINEER.BASIN CLEANER Work Phone: [facility] 12-11-2023 11:07-0500 Body weight 65.77 kg Martir Hong Jr., MD Work Phone: [facility] 12-11-2023 11:07-0500 Diastolic blood pressure 66 mm[Hg] Martir Hong Jr., MD Work Phone: [facility] 12-11-2023 11:07-0500 Heart rate 79 /min Martir Hong Jr., MD Work Phone: [facility] 12-11-2023 11:07-0500 Respiratory rate 16 /min Martir Hong Jr., MD Work Phone: [facility] 12-11-2023 11:07-0500 SaO2% (BldA) [Mass fraction] 98 % Martir Hong Jr., MD Work Phone: [facility] 12-11-2023 11:07-0500 Systolic blood pressure 118 mm[Hg] Martir Hong Jr., MD Work Phone: [facility] Encounters Encounter Date Encounter Type Care Provider Facility Start: 07-03-2025 ambulatory Crispin [place] Facility:[facility] Start: 06-10-2025 End: 06-10-[address] Crispin Ortega MD Work Phone: -[facility] Start: 06-10-2025 End: 06-10-[address] Crispin Ortega MD -[facility] Start: 06-10-2025 End: 06-10-2025 ambulatory Crispin Ortega [facility] Start: 02-17-2025 End: 02-17-2025 Telephone encounter Ainsley Ritter APRN.BASIN CLEANER Work Phone: Neurology Start: 02-17-2025 End: 02-17-2025 Patient encounter procedure Ainsley Ritter APRN.BASIN CLEANER Work Phone: Neurology Comment on above: FRANKI on CPAP (Primary Dx) Start: 02-17-2025 End: 02-17-2025 ambulatory AINSLEY RITTER Facility:[facility] Start: 02-14-2025 End: 02-17-2025 Telephone encounter Ainsley Ritter APRN.BASIN CLEANER Work Phone: Neurology Comment on above: PAP Therapy Follow U p Start: 01-24-2025 End: 01-24-2025 ambulatory FRITZ LESTER [facility] Start: 12-21-2024 End: 12-21-2024 ambulatory Crispin Ortega Facility:[facility] Start: 12-12-2024 ambulatory CRISPIN ORTEGA Facility:[facility] Start: 03-04-2024 End: 03-04-2024 Patient encounter procedure Ainsley Berriosne NETBACKUP ENGINEER.BASIN CLEANER Work Phone: Neurology Comment on above: FRANKI (obstructive sle ep apnea) (Primary Dx) Start: 03-04-2024 End: 03-04-2024 ambulatory AINSLEY RITTER Facility:[facility] Start: 02-26-2024 Telephone encounter Ainsley Dakota godfreyshanon NETBACKUP ENGINEER.BASIN CLEANER Work Phone: Neurology Comment on above: PAP [...] use Start: 06-14-2023 Telephone encounter Kristin Patel NETBACKUP ENGINEER.BASIN CLEANER Work Phone: Neurology Comment on above: Rejected CMN Start: 12-03-2022 End: 12-03-2022 ambulatory [facility] Work Phone: Start: 12-03-2022 End: 12-03-2022 Patient encounter procedure [facility] Start: 04-16-2022 End: 04-16-2022 Patient encounter procedure [facility] Procedures Date Procedure Procedure Detail Performing Clinician Start: 06-10-2025 Vitamin D, 25-hydrox y measurement Dr. Crispin Ortega MD Work Phone: Comment on above: Vitamin D StatusDefi ciency: <20 ng/mL (50nmol/L)Insufficiency: 20-30 ng/mL (50-75 nmol/L)Sufficiency: 30-100 ng/mL (75-250 nmol/L)Toxicity: >100 ng/mL (>250 nmol/L) Start: 12-26-2011 Colonoscopy Kristin Patel APRN.BASIN CLEANER Work Phone: Start: 09-13-2011 Mammography Kristin Patel APRN.BASIN CLEANER Work Phone: Start: 04-13-2011 Lipid 1996 panel - S yves or Plasma Martir Hong Jr., MD Work Phone: Plan of Treatment Date Care Activity Detail Author Start: 2033 RSV Vaccine (1 - 1-d ose 75+ series) RSV Vaccine (1 - 1-dose 75+ series) [facility] Start: 05-09-2026 Screening for malign ant neoplasm of colon [facility] Start: 11-13-2024 Advance Directive Discussion Advance Directive Discussion [facility] Start: 07-14-2024 Covid-19 Vaccine () Covid-19 Vaccine () [facility] Start: 07-14-2024 Influenza vaccination [facility] Start: 01-17-2024 DIABETES SCREEN DIABETES SCREEN [facility] Start: 01-17-2024 Diabetes Screening Diabetes Screenin g [facility] Start: 11-13-2023 Advance Directive Discussion Advance Directive Discussion [facility] Start: 11-13-2023 Behavioral Health Screening Behavioral Health Screening [facility] Start: 11-13-2023 Depression Assessment Depression Ass [facility] Start: 09-13-2023 Urine microalbumin profile DTa P,Tdap,Td Vaccine (2 - Td or Tdap) [facility] Start: 07-14-2023 Covid-19 Vaccine () Covid-19 Vaccine () [facility] Start: 07-14-2023 Influenza vaccination [facility] Start: 2023 Pneumococcal Vaccine : 65+ (2 of 2 - PCV) Pneumococcal Vaccine: 65+ (2 of 2 - PCV) [facility] Start: 2023 Screening for osteoporosis Bone Dens ity Screening [facility] Start: 11-13-2022 DEPRESSION ASSESSMENT DEPRESSION ASS ESSMENT [facility] Start: 04-14-2021 COVID-19 VACCINE (3 - Moderna series) COVID-19 VACCINE (3 - Moderna series) [facility] Start: 2018 RSV Vaccine (1 - 1-d ose 60+ series) RSV Vaccine (1 - 1-dose 60+ series) [facility] Start: 04-13-2016 Lipid panel Lipid Screening [facility] Start: 04-13-2016 LIPID SCREEN LIPID SCREEN [facility] Start: 03-13-2016 PAP TESTING PAP TESTING [facility] Start: 12-26-2012 Colonoscopy COLONOSCOPY [facility] Start: 12-26-2012 COLORECTAL CANCER SCREENING COLORECTAL CANCER SCREENING [facility] Start: 12-26-2012 Screening for malign ant neoplasm of colon [facility] Start: 09-13-2012 Mammography MAMMOGRAM [facility] Start: 09-13-2012 Screening for malign ant neoplasm of breast Mammogram Screening [facility] Start: 2008 Pneumococcal Vaccine : 50+ (2 of 2 - PCV) Pneumococcal Vaccine: 50+ (2 of 2 - PCV) [facility] Start: 2008 SHINGRIX VACCINE (1 of 2) SHINGRIX V ACCINE (1 of 2) [facility] Start: 2003 COLOGUARD (FIT-DNA) COLOGUARD (FIT-D NA) [facility] Start: [address] COLONOGRAPHY [facility] Start: 2003 FECAL OCCULT BLOOD FECAL OCCULT BLOO D [facility] Start: 2003 Screening for malign ant neoplasm of colon [facility] Start: 2003 SIGMOIDOSCOPY SIGMOIDOSCOPY [facility] Start: 1988 HPV TESTING HPV TESTING [facility] Start: 1977 Urine microalbumin profile DTAP,TDAP ,TD (1 - Tdap) [facility] Start: 1976 Anxiety Screening Anxiety Screening [facility] Start: 1976 Depression Screening Depression Scre ening [facility] Start: 1976 HEPATITIS C SCREENING HEPATITIS C [facility] Start: 1976 Hepatitis C screening Hepatitis C [facility] Start: 1976 HIV SCREENING HIV SCREENING [facility] Start: 1976 HIV screening HIV Screening [place] [facility] Immunizations Immunization Date Immunization Notes Care Provider [facility] 08-26-2020 influenza virus vacc ine, unspecified formulation Martir Hong Jr., MD Work Phone: [facility] 08-13-2011 influenza virus vacc ine, unspecified formulation Kristin Paige NETBACKUP ENGINEER.BASIN CLEANER Work Phone: [facility] Work Phone: 04-13-2006 pneumococcal polysaccharide vaccine, 23 valent Kristin Paige NETBACKUP ENGINEER.BASIN CLEANER Work Phone: [facility] Work Phone: Payers Date Payer Category Payer Self-pay [id number] 2024 Unknown [id number] 2019 Private Health Insurance [employer] [id number] 2019 Unknown [id number] 2015 Unknown [id number] 1960 Unknown [id number] Unknown [id number] Unknown [id number] Unknown [id number] Social History Date Type Detail Facility [facility] Work Phone: Start: 1960 Sex Assigned At Female [facility] Start: 05-08-2018 End: 12-11-2023 Tobacco smoking status NHIS Never smoked tobacco [facility] Start: 05-08-2018 End: 12-11-2023 Tobacco use and exposure Smokeless tobacco non-user [facility] Start: 09-23-2021 End: 02-17-2025 Alcohol intake Current drinker of alcohol (finding) [facility] Start: 1960 Sex Assigned At Not on file [facility] Start: 09-23-2020 End: 12-11-2023 Gender identity Not on file [facility] Start: 09-23-2020 End: 12-11-2023 History of Social function [facility] How often to you hav e a drink containing alcohol? Monthly or less [facility] How many standard drinks containing alcohol do you have on a typical day? 1 or 2 [facility] How often do you hav e 6 or more drinks on 1 occasion? Never [facility] Adult Depression Screening Assessment 0 [facility] Tobacco smoking stat [facility] Unknown if ever smoked [facility] Work Phone: Clinical Notes 06-14-2023 to 02-17-2025 Telephone Encounter - Shashank Nunez LPN - 02/17/2025 1:18 PM EDTTelephone Encounter - Shashank Nunez LPN - 02/17/2025 1:18 PM Ainsley Hardy APRN.VALENCIA - 02/17/2025 11:30 AM EDT Note Date & Type Note Facility 02-17-2025 Telephone encount er Note Office note faxed. Shashank Nunez LPN [facility] 02-17-2025 Miscellaneous Notes Formattin g of this note might be different from the original. Office note faxed. Shashank Nunez LPN Please fax my note to PCP Ainsley Ritter APRN.CNP documented in this encounter [facility] 02-17-2025 Telephone encount er Note Please fax my note to PCP Ainsley Ritter APRN.CNP [facility] 02-17-2025 History of Presen t illness Narrative Images from the original note were not included. [facility] Sleep Disorders Center Follow up/ Established patient [...] and smell since 01/2024. Recent testing by foster winder showed she has no allergies. Gets mask [...] sorted in reverse-chronological order 07/05/2021 08/22/2021 03/03/2024 [place] Sleepiness Scale Score 2 (No clinically significant [...] -117 mg-117 mg cap Take by mouth. Scawosimgjies-Serjvibk-Hymjfw (MULTIVITAMIN 50 PLUS) tab Take 1 tablet by mouth once daily. Calcium b #5-C9-Spyeafrcygt (CITRACAL D + HEART HEALTH) 315-250-200 mg-unit-mg [...] depending on your insurance coverage. Contact your [employer] company for new supplies as needed. - Follow up in 12 months - Discussed will need to update sleep study when she goes on Medicare, using 4% scoring Ainsley Ritter APRN.CNP documented in this encounter [facility] 02-17-2025 Note HNO ID: [id number] Author: AINSLEY RITTER APRN.CNP Service: ? Author Type: Nurse Practitioner Type: Progress Notes Filed: 02/17/2025 12:24 Note Text: [facility] Sleep Disorders Center Follow up/ Established patient [...] depending on your insurance coverage. Contact your [employer] company for new supplies as needed. - Follow up in 12 months Ainsley Ritter APRN.CNP Here for follow up for annual visit for severe FRANKI on APAP, dislikes CPAP but is compliant Only has faint sense of taste and smell since 01/2024. Recent testing by foster winder showed she has no allergies. Gets mask [...] sorted in reverse-chronological order 07/05/2021 08/22/2021 03/03/2024 [place] Sleepiness Scale Score 2 (No clinically significant [...] -117 mg-117 mg cap Take by mouth. Gbklksazvdknz-Mebfpqur-Xgplgi (MULTIVITAMIN 50 PLUS) tab Take 1 tablet by mouth once daily. Calcium b #9-Z4-Tcpkmvfiwak (CITRACAL D + HEART HEALTH) 315-250-200 mg-unit-mg [...] on exposed skin (more content not included)... [facility] 02-14-2025 Telephone encount er Note Please send 30 day download for upcoming appointment. Shashank Nunez LPN [facility] 02-14-2025 Miscellaneous Notes Formattin g of this note might be different from the original. Please send 30 day download for upcoming appointment. Shashank Nunez LPN documented in this encounter [facility] 01-24-2025 Note Nova is a 64 y.o. f emale who presents to our office today for re-evaluation. I did see her once on 04/23/15 for an allergy evaluation due to a history of migraine headaches. She is followed by Dr. Lester and Mrs. Salinas has a history of [...] On 06/10/20 she was seen by a Tailer In for ROSARIO 1:1280 and then 12/21/23 ROSARIO was 1:640. Nasonex is associated with epistaxis and right now she is using a CPAP and this is humidified and the uses Zinc oxide for her nose due to nasal irritation. Of note, she is taking Montelukast and she has some vivid dreams with this. Environmental Survey/Social History: Lives with . 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 [...] daily. (Patient not taking: Reported on 01/24/2025) [place]-3 Fatty Acids (FISH OIL PO) Take by mouth daily. (Patient not taking: Reported on 01/24/2025) B Owfdvml-Gbbzwx-HA (VITAMIN B50 COMPLEX PO) Take by mouth [...] Allergies: NKDA ( (more content not included)... [facility] 03-04-2024 History of Presen t illness Narrative Images from the original note were not included. [facility] Sleep Disorders Center Follow up/ Established patient [...] w/o it. Her mom is hospitalized in [place] so she has been traveling back and [...] due to drowsy drivin 07/05/2021 08/22/2021 03/03/2024 [place] Sleepiness Scale Score 2 (No daytime sleepiness) [...] -117 mg-117 mg cap Take by mouth. Imviybbbqqpcs-Sbspiisk-Lkmhpg (MULTIVITAMIN 50 PLUS) tab Take 1 tablet by mouth once daily. Calcium Cmb #0-M3-Ckkihduvzfb (CITRACAL D + HEART HEALTH) 315-250-200 mg-unit-mg [...] focal deficits observed, no tremors IMPRESSION: Franki (obstructive sleep apnea) (primary encounter [...] depending on your insurance coverage. Contact your [employer] ([employer]) company for new supplies as needed. - Follow up in 12 months Ainsley Ritter APRN.CNP documented in this encounter [facility] 03-04-2024 Note HNO ID: [id number] Author: AINSLEY RITTER APRN.CNP Service: ? Author Type: Nurse Practitioner Type: Progress Notes Filed: 03/04/2024 08:32 Note Text: [facility] Sleep Disorders Center Follow up/ Established patient [...] w/o it. Her mom is hospitalized in [place] so she has been traveling back and [...] due to drowsy drivin 07/05/2021 08/22/2021 03/03/2024 [place] Sleepiness Scale Score 2 (No daytime sleepiness) [...] -117 mg-117 mg cap Take by mouth. Htvvsflxinirm-Tkctimqw-Wrffav (MULTIVITAMIN 50 PLUS) tab Take 1 tablet by mouth once daily. Calcium Cmb #4-L8-Fnmuzguebva (CITRACAL D + HEART [employer]) 315-250-200 mg-unit-mg tab Take by mouth once [...] Skin: No v (more content not included)... [facility] 02-26-2024 Miscellaneous Notes Formattin g of this note might be different from the original. Images from the original note were not included. documented in this encounter [facility] 12-25-2023 Miscellaneous Notes Formattin g of this note might be different from the original. Note that the correct PAP information is under OTHER ORDERS and not under meds. Martir Hong MD TC to pt who states [facility] has changed pressures. Pt would like CPAP under medication updated with new machine - Dream station, and her new pressure and that she does not use a chin strap. Shashank Nunez LPN Pressure change orders faxed to [facility] in [place] per request. Shashank Nunez LPN Pt called and she has never been with [facility]. She is with [facility] and always has been. Please fax to [facility] Attn: Yvon. Pt update pt's apt sc Apt was made 03/04/24 please change description to [facility]. Per pt setting should not be on [...] Faxed Rx PAP pressure change to [employer] [phone] 12/11/2023. Karli Cohen LPN documented in this encounter [facility] 12-11-2023 History of Presen t illness Narrative ESTABLISHED PATIENT VISIT CHIEF COMPLAINT: Follow Up HISTORY OF PRESENT ILLNESS: Nova Salinas is a 63 year old female, BMI 24.13 kg/m2 with a PMH significant for and per last office visit note of 08/24/21 with Brandin Paige BASIN CLEANER: Franki (obstructive sleep apnea) (primary encounter diagnosis) [...] is received Pt now with a new [employer] 2 - through [employer]. Pt feels device working fine. However, is [...] -117 mg-117 mg cap Take by mouth. Gpclhzhkflglu-Ottoffjo-Tarcrv (MULTIVITAMIN 50 PLUS) tab Take 1 tablet by mouth once daily. Calcium Cmb #7-K1-Qddzmhzkmxd (CITRACAL D + [facility])) 315-250-200 mg-unit-mg tab Take by mouth once [...] FRANKI (obstructive sleep apnea) 08/29/2019 DME [employer] [place] PONV (postoperative nausea and vomiting) 05/28/2018 Snoring [...] lesions, membranes moist. Deviated septum (to L). Rmaos IV) NECK: ROM nml. Lungs: CTA bilaterally. [...] which included preparing to see the patient, xbsn-fs-iyqq patient care, completing clinical documentation, obtaining and/or reviewing separately obtained history, performing a medically appropriate examination, counseling and educating the patient/family/caregiver, ordering medications, tests, or procedures, independently interpreting results (not separately reported), and communicating results to the patient/family/caregiver (results = PAP data download). documented in this encounter [facility] 06-14-2023 Miscellaneous Notes Formattin g of this note might be different from the original. SLEEP CMN REJECTION NOTICE We received a Certificate of Medical Necessity(CMN) from the [employer] - , via fax. Patients are required to be seen in the sleep department at least once a year to have this Certificate of Medical Necessity(CMN) form completed. The last visit in the sleep department was on 07/06/21, and therefore an appointment is required. Please contact our Scheduling Department at: [phone] or [phone]. Thank you, [facility] Sleep Disorder Center documented in this encounter [facility] Evaluation note No assessment inform ation available [facility] Work Phone: Evaluation note Diagnosis Obstructive sleep apnea (adult) (pediatric)- Primary FRANKI (obstructive sleep apnea) Obstructive sleep apnea (adult) (pediatric) Difficulty with CPAP use documented [facility] this encounter [facility] Diagnosis FRANKI (obstructive sleep apnea)- Primary Obstructive sleep apnea (adult) (pediatric) documented [facility] this [facility] Diagnosis FRANKI on CPAP- Primary Obstructive sleep apnea (adult) (pediatric) documented in this encounter [facility] CenterReason for referral (narrative)No reason for referral information availableWooMercy Health [facility] Work Phone: Summary Purpose Family History No Family History [...] section and content) DATE CREATED AUTHOR 11/04/2020 [facility] DATE CREATED AUTHOR AUTHOR'S ORGANIZ ATION 01/27/2025 [facility] DATE CREATED AUTHOR AUTHOR'S ORGANIZ ATION 02/22/2025 [facility] DATE CREATED AUTHOR AUTHOR'S ORGANIZ ATION 2025 [facility] Goals (unrecognized section and content) Goals may be documented in a n alternate sectionGoals may be documented in an alternate sectionGoals may be documented in an [...] Dr. Anneliese Gonzales MD Other Provider Active Mathematics Technician Relationship Specialty Start Date End Date Crispin Ortega MD [address] [place] [address] PCP - General Family Medicine 05/08/18 Mathematics Technician Relationship Specialty Start Date End Date Cripsin Ortega MD [address] [place] [address] PCP - General Family Medicine 05/08/18 Mathematics Technician Relationship Specialty Start Date End Date Crispin Ortega MD [address] [place] [address] PCP - General Family Medicine 05/08/18 Mathematics Technician Relationship Specialty Start Date End Date Crispin Ortega MD [address] [place] [address] PCP - General Family Medicine 05/08/18 Mathematics Technician Relationship Specialty Start Date End Date Crispin Ortega MD [address] [place] [address] PCP - General Family Medicine 05/08/18 Mathematics Technician Relationship Specialty Start Date End Date Crispin Ortega MD [address] [place] [address] PCP - General Family Medicine 05/08/18 Team Status: Active Member Role/Relationship Status Dates Dr. Crispin Ortega MD Primary Care Provider Active Team Status: Inactive Member Role/Relationship Status Dates Dr. Crispin Ortega MD Primary Care Provider Active Start: June 10, 2025 End: June 10, 2025 Dr. Crispin Ortega MD Attending Provider Active St art: June 10, 2025 End: June 10, 2025 Dr. Crispin Ortega MD Referring Provider Active St art: June 10, 2025 End: June 10, 2025 Source Comments (unrecognize d section and content) In the event this informatio n is protected by the Federal Confidentiality of Alcohol and Drug Abuse Patient Records regulations: The Federal rules restrict any use of the information to criminally investigate or prosecute any alcohol or drug abuse patient.[facility] the event this information is protected by the Federal Confidentiality of Alcohol and Drug Abuse Patient Records regulations: The Federal rules restrict any use of the information to criminally investigate or prosecute any alcohol or drug abuse patient.[facility] Center[facility] the event this information is protected by the Federal Confidentiality of Alcohol and Drug Abuse Patient Records regulations: The Federal rules restrict any use of the information to criminally investigate or prosecute any alcohol or drug abuse patient.[facility] Center[facility] the event this information is protected by the Federal Confidentiality of Alcohol and Drug Abuse Patient Records regulations: The Federal rules restrict any use of the information to criminally investigate or prosecute any alcohol or drug abuse patient.[facility] Center[facility] the event this information is protected by the Federal Confidentiality of Alcohol and Drug Abuse Patient Records regulations: The Federal rules restrict any use of the information to criminally investigate or prosecute any alcohol or drug abuse patient.[facility] CenterIn the event this information is protected by the Federal Confidentiality of Alcohol and Drug Abuse Patient Records regulations: The Federal rules restrict any use of the information to criminally investigate or prosecute any alcohol or drug abuse patient.[facility] CenterIn the event this information is protected by the Federal Confidentiality of Alcohol and Drug Abuse Patient Records regulations: The Federal rules restrict any use of the information to criminally investigate or prosecute any alcohol or drug abuse patient.[facility] Center[facility] the event this information is protected by the Federal Confidentiality of Alcohol and Drug Abuse Patient Records regulations: The Federal rules restrict any use of the information to criminally investigate or prosecute any alcohol or drug abuse patient.[facility] Reason for Visit (unrecogniz ed section and [...] BE BASED ON THE PRIMARY CLINICAL RECORDS. [facility]. provides no warranty or guarantee of the accuracy or completeness of information in this document.
== END | disposition home or self-care (01) ==
LOC: OPBI 07:08
PROVIDERS: PCP Family Medicine; Referring Provider Family Medicine; Visit Provider Family Medicine
DX: Z12.31 Encounter for screening mammogram for malignant neoplasm of breast (principal)
CPT/HCPCS: 77063; 77067